=== PATIENT | male | born 1950 | race Caucasian/White ===

== ENCOUNTER → 2016-07-15 | Outpatient (CLI) | payer MEDICARE, OTHER ==
[~2016-07-15] MED LIST: ALBU8.5H2 IH; AMIT25TA9 PO; APIX5TAB PO; APIX5TAB2 PO; ASCO500T20 PO; ASCO500T75 PO; ASPI-983 PO; Amiodarone Hcl PO; BSP5T PO; BUSP15TA60 PO; CA C1TAB26 PO; CEFU500T5 PO; CHOL10007 PO; DIGO125T PO; DIGO250T15 PO; DILT240C PO; DILT240C9 PO; ENAL2.5T PO; ENALAPRIL MALEATE PO; FLUT16SP22 NS; FLUT1DIS27 IH; FLUT50DI IH; FRSM40T PO; FURO40TA4 PO; GUAI600T43 PO; HYDR-3812 PO; HYDR1TAB66 PO; IBAN150T8 PO; KCL20TCR PO; LOSA50TA6 PO; METO100T2 PO; MNTL10T PO; MONT10TA24 PO; MULT-406 PO; MULT1TAB12 PO; Metoprolol Tartrate PO; OMEP20CA12 PO; OMG1KC PO; PHEN50TA PO; PHN100C PO; POTA20TA8 PO; PRD5T PO; PRED5TAB PO; SODI30SP2 NS; SOTA80TA PO; Sotalol Hcl PO; TIOT18CA IH; TIOT18CA2 IH; TRIA1CAP4 PO
--- OUTSIDE RECORDS SUMMARY | 2016-07-15 11:26 | XMS REPORT | Continuity of Care Document ---
Author Author [facility] Organization [facility] Address Unknown Phone Unavailable Care Team Providers Care Liability Claims Adjuster Name Role Phone REBA BAILEY MD PCP Insurance Providers Payer Name Policy Number Subscriber Name Relationship [employer] [id number] Gallito Barros Jr 18 Self / Same As Patient Advance Directives Directive Response Recorded Date/Time Advance Directives No 01/18/15 8:00am Organ Donor No 01/18/15 8:00am Resuscitation Status Full Code 01/18/15 8:00am Chief Complaint and Reason for Visit Chief Complaint A-FIB WITH RVR Reason for Visit Atrial fibrillation with rapid ventricular response Problems Medical Problems Problem Onset Date Status Atrial fibrillation with rapid ventricular response Unknown Active Medications Medication Dose Route Sig Days/Qty Instructions Order Date Discontinued Date Status Phenytoin 400 Mg PO BEDTIME 12/22/11 12/23/11 Discontinued Omeprazole 20 Mg PO DAILY Take one capsule by mouth every day 12/22/11 Active Prednisone 10 Mg PO DAILY 12/22/11 Active Hydrocodone Bit/Acetaminophen 1 Tab PO EVERY 6 HOURS PRN 12/22/11 Active Triamterene/Hydrochlorothiazid 1 Each PO DAILY 12/22/11 12/24/11 Discontinued Buspirone HCl 15 Mg PO TWICE A DAY 12/22/11 01/18/15 Discontinued Amitriptyline HCl (Elavil) 25 Mg PO BEDTIME 12/22/11 Active Albuterol 2 Puff IH EVERY 4HRS PRN 2 PUFFS 12/22/11 Active Fluticasone Propionate 1 Puff IH DAILY 12/22/11 12/23/11 Discontinued Salmeterol Xinafoate/Fluticasone 1 Puff IH TWICE A DAY 12/22/11 Active Ca Cmb No.1/Vit D3/B-6/Fa/B12 1 Tab PO DAILY 12/22/11 Active Ascorbic Acid 500 Mg PO DAILY 12/22/11 Active Phenytoin Sodium 300 Mg PO BEDTIME 12/23/11 Active Fluticasone Propionate 2 Spr NS DAILY 2 sprays each nostril every day 12/23/11 Active Multivitamins W-Minerals 1 Tab PO DAILY 12/23/11 Active Montelukast Sodium 10 Mg PO DAILY 12/23/11 Active Tiotropium [place] 1 Inh IH DAILY 1 INHALATION 12/23/11 Active Cefuroxime Axetil (Ceftin) 1 Each PO TWICE A DAY 12/24/11 01/18/15 Discontinued Buspirone Hcl 15 Mg PO TWICE A DAY 180 Qty 01/18/15 Active Ibandronate Sodium 150 Mg PO DIRECTED 1 Qty 01/18/15 Active Losartan Potassium 50 Mg PO DAILY 90 Qty 01/18/15 01/25/15 Discontinued Apixaban 5 Mg PO TWICE A DAY 30 Days 01/25/15 Active [Amiodarone Hcl] 400 Mg PO TWICE A DAY 30 Days 01/25/15 Active Digoxin 0.125 Mg PO DAILY 30 Qty 01/25/15 Active [Enalapril Maleate] 2.5 Mg PO DAILY 30 Qty 01/25/15 Active [Metoprolol Tartrate] 50 Mg PO TWICE A DAY 30 Days 01/25/15 Active Potassium Chloride 20 Meq PO DAILY@0700 30 Days 01/25/15 Active Diltiazem HCl (Cardizem Cd) 1 Each PO DAILY 30 Qty 01/25/15 Active Furosemide 1 Each PO DAILY 30 Qty 01/25/15 Active Social History Social History Problem Response Recorded Date/Time Alcohol Use Denies Use 01/18/2015 8:00am Recreational Drug Use No 01/18/2015 8:00am Recent Foreign Travel No 01/18/2015 8:00am Recent Infectious Disease Exposure No 01/18/2015 8:00am Hospitalization with Isolation Denies 01/25/2015 2:46pm Sexually Transmitted Disease No 01/18/2015 8:00am HIV/AIDS No 01/18/2015 8:00am Smoking Status Never a Smoker 01/18/2015 8:00am Do you dip or chew tobacco? No 01/18/2015 8:00am Query Response Start Date Stop Date Smoking Status Never a Smoker Hospital Discharge Instructions No hospital discharge instructions. Plan of Care Discharge Date 01/25/15 1:53pm Disposition 30 STILL A PATIENT Instructions/Education Provided CARDIAC CATH DISCHARGE INSTRUC 2 Gram Sodium Diet (DC) Prescriptions See Medications Section Referrals (Unspecified) Reason(s) for Referral: Follow up with Dr. Bustamante on January 30 at 8:20. Follow up with Dr. Bailey on February 01 at 9:00. Call their respective offices with any questions regarding your appointments. Functional Status Query Response Date Recorded Patient Orientation Person Place Time Situation January 25, 2015 2:46pm Comprehension Ability Understands Concepts January 25, 2015 8:00am Allergies, Adverse Reactions, Alerts Allergen Type Severity Reaction Status Last Updated Penicillins ([id number]) Allergy Unknown Active 09/27/05 Immunizations Name Given Type Tetanus Booster (TDap) More than 5yrs Historical Vital Signs Acute Vital Signs Vital Response Date/Time Temperature (Fahrenheit) 98.0 degrees F (97.6 - 99.5) Temperature (Calculated Celsius) 36.61575 degrees C (36.4 - 37.5) Temperature Source Temporal Pulse Rate (adult) 84 bpm (60 - 90) Respiratory Rate 18 bpm (12 - 24) O2 Sat by Pulse Oximetry 96 % (88 - 100) Blood Pressure 116/70 mm Hg Blood Pressure Mean 85 mm Hg Pain Pain Intensity 0 Pain Pain Intensity 0 Height (Feet) 5 feet Height (Inches) 4.00 inches Height (Calculated Centimeters) 162.596834 cm Weight (Pounds) 165 pounds Weight (Ounces) 12.8 oz Weight (Calculated Grams) 41415.616 gm Weight (Calculated Kilograms) 75.291421 kilograms Calculated BMI 31.58 Results Laboratory Results Test Name Result Units Flags Reference Collection Date/Time Result Date/ Time Comments White Blood Count 7.8 10^3/uL 4.3-11.0 01/25/2015 4:56am 01/25/2015 5: 31am Red Blood Count 3.99 10^6/uL L 4.35-5.85 01/25/2015 4:56am 01/25/2015 5: 31am Hemoglobin 12.9 G/DL L 13.3-17.7 01/25/2015 4:56am 01/25/2015 5:31am Hematocrit 39 % L 40-54 01/25/2015 4:56am 01/25/2015 5:31am Mean Corpuscular Volume 99 FL 80-99 01/25/2015 4:56am 01/25/2015 5: 31am Mean Corpuscular Hemoglobin 32 PG 25-34 01/25/2015 4:56am 01/25/2015 5: 31am Mean Corpuscular Hemoglobin Concent 33 G/DL 32-36 01/25/2015 4:56am 5:31am Red Cell Distribution Width 13.7 % 10.0-14.5 01/25/2015 4:562014 5:31am Platelet Count 348 10^3/uL 130-400 01/25/2015 4:56am 01/25/2015 5:31am Mean Platelet Volume 8.3 FL 7.4-10.4 01/25/2015 4:56am 01/25/2015 5: 31am Neutrophils (%) (Auto) 62 % 42-75 01/18/2015 6:0501/18/2015 6:27am Lymphocytes (%) (Auto) 25 % 12-44 01/18/2015 6:0501/18/2015 6:27am Monocytes (%) (Auto) 12 % 0-12 01/18/2015 6:0501/18/2015 6:27am Eosinophils (%) (Auto) 1 % 0-10 01/18/2015 6:0501/18/2015 6:27am Basophils (%) (Auto) 0 % 0-10 01/18/2015 6:0501/18/2015 6:27am Neutrophils # (Auto) 4.6 X 10^3 1.8-7.8 01/18/2015 6:0501/18/2015 6: 27am Lymphocytes # (Auto) 1.8 X 10^3 1.0-4.0 01/18/2015 6:0501/18/2015 6: 27am Monocytes # (Auto) 0.9 X 10^3 0.0-1.0 01/18/2015 6:05am 01/18/2015 6: 27am Eosinophils # (Auto) 0.1 10^3/uL 0.0-0.3 01/18/2015 6:05am 01/18/2015 6 :27am Basophils # (Auto) 0.0 10^3/uL 0.0-0.1 01/18/2015 6:05am 01/18/2015 6: 27am Prothrombin Time 14.6 SEC 12.2-14.7 01/18/2015 6:05am 01/18/2015 6: 37am INR Comment 1.2 0.8-1.4 01/18/2015 6:05am 01/18/2015 6:37am INTERPRETIVE DATA SUGGESTED THERAPEUTIC RANGE FOR INR'S: VENOUS THROMBOSIS, PULMONARY EMBOLISM, OR PREVENTION OF SYSTEMIC EMBOLISM (EG. IN ATRIAL FIBRILLATION): 2.0 - 3.0 MECHANICAL PROSTHETIC HEART VALVES: 2.5 - 3.5* *NOTE: INR'S UP TO 4.5 MAY BE NECESSARY IN SELECTED GROUPS OF HIGH RISK PATIENTS. [employer] CONSENSUS CONFERENCE ON ANTITHROMBOTIC THERAPY (2000). Activated Partial Thromboplast Time 32 SEC 24-35 01/18/2015 6:05am 6:37am D-Dimer 0.72 UG/ML H 0.00-0.49 01/19/2015 6:05am 01/19/2015 7:18am Sodium Level 135 MMOL/L 135-145 01/25/2015 4:56am 01/25/2015 5:48am Potassium Level 4.2 MMOL/L 3.6-5.0 01/25/2015 4:56am 01/25/2015 5:48am Chloride Level 101 MMOL/L 98-107 01/25/2015 4:56am 01/25/2015 5:48am Carbon Dioxide Level 24 MMOL/L 21-32 01/25/2015 4:56am 01/25/2015 5: 48am Anion Gap 10 MMOL/L 5-14 01/25/2015 4:56am 01/25/2015 5:48am Blood Urea Nitrogen 11 MG/DL 7-18 01/25/2015 4:56am 01/25/2015 5:48am Creatinine 0.84 MG/DL 0.60-1.30 01/25/2015 4:5601/25/2015 5:48am BUN/Creatinine Ratio 13 01/25/2015 4:5601/25/2015 5:48am Estimat Glomerular Filtration Rate > 60 01/25/2015 4:562014 5:48am GFR INTERPRETIVE DATA UNITS FOR ESTIMATED GFR (eGFR): mL/min/1.73 M2 REFERENCE RANGE FOR ESTIMATED GFR (eGFR) eGFR NORMAL eGFR >60 MODERATELY DECREASED eGFR 30-59 SEVERLY DECREASED eGFR 15-29 KIDNEY FAILURE <15 (OR DIALYSIS) Glucose Level 76 MG/DL 70-105 01/25/2015 4:5601/25/2015 5:48am Calcium Level 9.3 MG/DL 8.5-10.1 01/25/2015 4:5601/25/2015 5:48am Magnesium Level 2.0 MG/DL 1.8-2.4 01/18/2015 6:01/18/2015 6:53am Total Bilirubin 0.5 MG/DL 0.1-1.0 01/23/2015 5:01/23/2015 6:23am Alkaline Phosphatase 87 U/L 40-136 01/23/2015 5:01/23/2015 6:23am Aspartate Amino Transf (AST/SGOT) 75 U/L H 5-34 01/23/2015 5:2014 6:23am Alanine Aminotransferase (ALT/SGPT) 104 U/L H 0-55 01/23/2015 5: 6:23am Troponin I < 0.30 NG/ML <0.30 01/19/2015 5:01/19/2015 6:13am Troponin I < 0.30 NG/ML <0.30 01/18/2015 6:01/18/2015 6:58am Myoglobin 151.9 NG/ML H 10.0-92.0 01/18/2015 6:01/18/2015 6:58am B-Type Natriuretic Peptide 300.7 PG/ML H <100.0 01/19/2015 5:2014 6:13am Total Protein 6.3 G/DL L 6.4-8.2 01/23/2015 5:01/23/2015 6:23am Albumin 3.4 G/DL 3.2-4.5 01/23/2015 5:26am 01/23/2015 6:23am Triglycerides Level 74 MG/DL <150 01/19/2015 5:10am 01/19/2015 6:14am Cholesterol Level 143 MG/DL < 200 01/19/2015 5:10am 01/19/2015 6:14am HDL Cholesterol 38 MG/DL L 40-60 01/19/2015 5:10am 01/19/2015 6:14am LDL Cholesterol Direct 89 MG/DL 1-129 01/19/2015 5:10am 01/19/2015 6: 14am VLDL Cholesterol 15 MG/DL 5-40 01/19/2015 5:10am 01/19/2015 6:14am Digoxin Level 0.70 NG/ML L 0.80-2.00 01/23/2015 5:26am 01/23/2015 6:23am Phenytoin (Dilantin) Level 5.5 UG/ML L 10.0-20.0 01/18/2015 6:05am 2014 9:04am Procedures Procedure Status Date Provider(s) Tracing only of electrocardiogram completed 01/18/15 YOEL LOZANO MD Color Doppler echocardiography completed 01/18/15 REBA BAILEY MD Tracing only of electrocardiogram completed 01/18/15 MELISSA BUSTAMANTE MD Transesophageal echocardiography with contrast completed 01/20/15 MELISSA BUSTAMANTE MD Tracing only of electrocardiogram completed 01/21/15 MELISSA BUSTAMANTE MD Tracing only of electrocardiogram completed 01/22/15 MELISSA BUSTAMANTE MD Tracing only of electrocardiogram completed 01/24/15 MELISSA BUSTAMANTE MD Encounters Encounter Location Date/Time Discharged Inpatient Via [facility] 01/18/15 7:29am Recent Diagnosis Atrial fibrillation with rapid ventricular response
--- NOTE | 2016-07-16 09:31 | ECHOCARDIOGRAPHY REPORT ---
PROCEDURE PHYSICIAN: MELISSA ADAMS DATE OF PROCEDURE: 07/15/2016 TWO DIMENSIONAL ECHOCARDIOGRAM REPORT PRIMARY PHYSICIAN: OTHER PHYSICIAN: REFERRING PHYSICIAN: ORDERING PHYSICIAN: INDICATION FOR THE PROCEDURE: MEASUREMENTS DERIVED VALUES LV DIAMETER (LAX) NORMALS NORMALS Diastolic 4.6 (3.6-5.2) Eject. Fract. 60% (60%+/-6%) Systolic (2.3-3.9) Diastolic Vol. % Shortening (0.22-0.42) Systolic Vol. Aortic Root IVS THICKNESS Diastolic 1.3 (0.6-1.1) LVPW THICKNESS Diastolic 1. (0.6-1.1) LA DIAMETER Systolic 4.9 (2.1-3.7) FINDINGS: 1. Technically suboptimal study. 2. The left ventricle is normal in size with mild hypertrophy noted at the base of the septum giving the septum a sigmoid shape. Systolic function appeared to be normal. Estimated ejection fraction 60%. 3. Left atrium is mildly dilated. No clot or thrombus were seen within the left atrium. 4. The right atrium and right ventricle are normal in size. No clot or thrombus were seen within the right side. 5. Mitral valve is calcified with mild mitral regurgitation noted by color Doppler flow. No mitral valve prolapse. No mitral valve stenosis. 6. Aortic valve leaflets were not well visualized. There is no significant aortic valve stenosis was noted, aortic regurgitation noted by color Doppler flow. 7. Tricuspid valve is normal in morphology with mild tricuspid regurgitation noted by color Doppler flow. Doppler across tricuspid valve estimated pulmonary artery pressure of 37+ right atrial pressure. 8. Pulmonic valve is functioning normally. 9. No pericardial effusion. CONCLUSION: 1. Normal left ventricular size with mild hypertrophy noted at the base of the septum giving the septum a sigmoid shape. Systolic function appeared to be normal. Estimated ejection fraction 60%. 2. Mildly dilated left atrium. 3. Mild mitral regurgitation. Mild tricuspid regurgitation. 4. Aortic valve was not well visualized. Mild aortic regurgitation noted by color Doppler flow. No aortic valve stenosis. 5. Pulmonary hypertension with estimated pulmonary artery pressure of 45 mmHg. Job ID: [id number] Dictated Date: 07/15/2016 16:41:54 Hatch Supervisor Date: 07/16/2016 09:26:18 / shreyas
== END ==
LOC: CARD 11:23
PROVIDERS: ATTEND Physician Assistant
DX: I48.0 Paroxysmal atrial fibrillation (principal); I25.10 Atherosclerotic heart disease of native coronary artery without angina pectoris; I50.22 Chronic systolic (congestive) heart failure; E78.2 Mixed hyperlipidemia
CPT/HCPCS: 93306

== ENCOUNTER 2016-07-29 07:13 | Inpatient (IN) | payer MEDICARE, OTHER ==
[~2016-07-29] VITALS: Ht 160 cm; Wt 75.3 kg
[2016-07-29] VITALS (16 sets, daily range): BP systolic 93–112; BP diastolic 55–84
[~2016-07-29 07:13] MED LIST changes: -APIX5TAB PO; -ASCO500T75 PO; -ASPI-983 PO; -CHOL10007 PO; -DIGO125T PO; -DILT240C9 PO; -ENAL2.5T PO; -FURO40TA4 PO; -GUAI600T43 PO; -HYDR-3812 PO; -METO100T2 PO; -MONT10TA24 PO; -MULT-406 PO; -OMG1KC PO; -POTA20TA8 PO; -PRED5TAB PO; -SODI30SP2 NS; -SOTA80TA PO; -Sotalol Hcl PO; -TIOT18CA2 IH
--- OUTSIDE RECORDS SUMMARY | 2016-07-29 07:17 | XMS REPORT | Continuity of Care Document ---
Author Author [facility] Organization [facility] Address Unknown Phone Unavailable Care Team Providers Care Condenser Setter Name Role Phone REBA BAILEY MD PCP Insurance Providers Payer Name Policy Number Subscriber Name Relationship [employer] [id number] Gallito Barros Jr 18 Self / Same [...] 10 Mg PO DAILY 12/23/11 Active Tiotropium [place] 1 Inh IH DAILY 1 INHALATION 12/23/11 [...] Type Severity Reaction Status Last Updated Penicillins ([id number]) Allergy Unknown Active 09/27/05 Immunizations Name Given Type Tetanus Booster (TDap) More than 5yrs Historical Vital Signs Acute Vital Signs Vital Response Date/Time Temperature (Fahrenheit) 98.0 degrees F (97.6 - 99.5) Temperature (Calculated Celsius) 36.69573 degrees C (36.4 - 37.5) Temperature Source Temporal Pulse Rate (adult) 84 bpm (60 - 90) Respiratory Rate 18 bpm (12 - 24) O2 Sat by Pulse Oximetry 96 % (88 - 100) Blood Pressure 116/70 mm Hg Blood Pressure Mean 85 mm Hg Pain Pain Intensity 0 Pain Pain Intensity 0 Height (Feet) 5 feet Height (Inches) 4.00 inches Height (Calculated Centimeters) 162.492230 cm Weight (Pounds) 165 pounds Weight (Ounces) 12.8 oz Weight (Calculated Grams) 49547.616 gm Weight (Calculated Kilograms) 75.368724 kilograms Calculated BMI 31.58 Results Laboratory Results [...] SELECTED GROUPS OF HIGH RISK PATIENTS. [employer] CONSENSUS CONFERENCE ON [...] Encounters Encounter Location Date/Time Discharged Inpatient [facility] 01/18/15 7:29am Recent Diagnosis Atrial fibrillation with rapid ventricular response
[2016-07-29] MEDS ORDERED: METO100T2 PO (08:40)
[2016-07-29] MEDS ORDERED: ASPI-983 PO (08:40)
[2016-07-29] MEDS ORDERED: DILT240C9 PO (08:40)
[2016-07-29] MEDS ORDERED: CHOL10007 PO (08:40)
[2016-07-29] MEDS ORDERED: OMG1KC PO (08:40)
[2016-07-29] MEDS ORDERED: POTA20TA8 PO (08:40)
[2016-07-29] MEDS ORDERED: DIGO125T PO (08:40)
[2016-07-29] MEDS ORDERED: MULT-406 PO (08:40)
[2016-07-29] MEDS ORDERED: FURO40TA4 PO (08:40)
[2016-07-29] MEDS ORDERED: IBAN150T8 PO (08:40)
[2016-07-29] MEDS ORDERED: APIX5TAB PO (08:40)
[2016-07-29] MEDS ORDERED: SODI30SP2 NS (08:40)
[2016-07-29] MEDS ORDERED: ENAL2.5T PO (08:40)
[2016-07-29] MEDS ORDERED: GUAI600T43 PO (08:40)
[2016-07-29] MEDS ORDERED: HYDR-3812 PO (08:48)
[2016-07-29] MEDS ORDERED: SOTALOL 80 MG (BETAPACE) TAB PO SCH (09:00)
[2016-07-29] MEDS ORDERED: SALINE NASAL SPRAY (OCEAN) 45 ML BTL NS PRN (11:15)
[2016-07-29] MEDS ORDERED: DIGOXIN 0.125 MG (LANOXIN) TAB PO SCH (11:15)
[2016-07-29] MEDS ORDERED: IBANDRONATE SODIUM 150 MG PO SCH (11:15)
[2016-07-29] MEDS ORDERED: DILTIAZEM 240 MG (CARDIZEM CD) CAP PO SCH (11:20)
[2016-07-29] MEDS ORDERED: meTOprolol TARTRATE 50 MG (LOPRESSOR) TAB PO SCH (11:21)
[2016-07-29] MEDS ORDERED: predniSONE 5 MG TAB PO SCH (11:23)
[2016-07-29] MEDS ORDERED: UMECLIDINIUM BROMIDE (INCRUSE ELLIPTA) 7'S IH SCH (11:29)
[2016-07-29] MEDS ORDERED: RT-ALBUTEROL SULF 2.5 MG/3 ML PRE-MIX VIAL INH PRN (11:30)
[2016-07-29] MEDS ORDERED: HYDROcodone/APAP 5 MG/325 MG (LORTAB) TAB PO PRN (11:45)
--- NOTE | 2016-07-29 11:48 | History & Physicial-Cardiolgy ---
HPI-Cardiology Cardiology Consultation: Date of Consultation 07/29/16 Date of Admission Attending Physician Jamie Rich MD Admitting Physician Yeison Bailey MD Consulting Physician Jamie RICH MD HPI: Chief Complaint: Atrial fibrillation This is a 65-year-old gentleman who has been referred by Dr. Bustamante for evaluation of atrial fibrillation. The patient has possible history of endocarditis as a child with history of cardiac surgery for valve repair. He also has mild to moderate coronary artery disease on an angiogram performed by Dr. Bustamante. Echocardiogram also revealed mild to moderate LV systolic dysfunction with an EF of 35 percent. Echocardiogram also showed moderate mitral stenosis, lhue-tx-erddxarz mitral regurgitation, plns-vf-rqwjcsed aortic insufficiency. The mitral leaflets are diseased with possible evidence of healed vegetation. Mild to moderate left atrial enlargement was also noted. He has had at least 3 cardioversions in the past, the last one was in June 2015. One of the cardioversions was done with amiodarone, however, it was discontinued because of elevated LFTs. Has not been on any other antiarrhythmics. He is currently on therapy for cardiomyopathy and rate controlled with beta sukumar, Cardizem and digoxin. He has been regularly taking Eliquis for a while now and at least regularly for the last one month. He denies any significant cardiac symptoms including chest pain, palpitation, shortness of breath or dizziness. Procedure history: Echocardiogram ([id number]) on 07/15/2016 at 65 Years. Comments: 07/17/2016 1:19 PM - Hilary Maradiaga Normal LV size with mild LVH, normal systolic function, EF 60%, LA dilatation mild MR and TR, AV not well visualized, mild AR, no AV stenosis, HTP=45mmHg Carotid US- Mild 1-39% stenosis, nonobstructive disease bilaterally on 2015 at 65 Years. 2D Echo - prominent LV size w/ preserved systolic function, dilated LA, echogenic density noted on ant leaflet of MV (could be myxomatous degen or old healed vagetation), valve functioning normally, AV sclerosis, no , mild to mod AR, mild TR, PA 40mmHg on 06/14/2015 at 64 Years. AMBROSIO with cardioversion - cardioverted x 2 with no response on 03/23/2015 at 64 Years. Cardioversion in the month of 02/2015 at 64 Years. LHC - nonischemic cardiomyopathy, prob tachycardia-induced with EF 40%; mild to mod CAD, nonobstructive disease including 40-50% mid LAD stenosis, mild in RCA on 01/24/2015 at 64 Years. AMBROSIO with Cardioversion - converted to SR but failed to remain in SR on 2014 at 64 Years. 2D Echo - fair tech quality; LV and LA are mildly dilated with mod RV and R upper chamber dilatation; global mod LV hypokinesis with EF 35%; in A fib with vent rate of around 120 beats per min. during procedure; anterior mitral leaflet is sclerotic on 01/18/2015 at 64 Years. Comments: 01/30/2015 5:59 PM - Steph Smith with reduced leaflet mobility, posterior leaflet is not significantly thickened ; no evidence for intracardiac shunting is noted; no evidence of pericardial effusion; no intracardiac mass or thrombus formation is visualized. Review of Systems-Cardiology Review of Systems Constitutional: No As described under HPI, No no symptoms reported, No chills, No fever, No lightheadedness, No malaise, No tiredness, No weight loss, No weight gain, No other Eyes: No As described under HPI, No no symptoms reported, No blindness, No blurred vision, No contact lenses, No drainage, No decreased acuity, No foreign body sensation, No glasses, No inflammation, No pain, No photophobia, No previous injury, No shadows, No tunnel vision, No other, No vision change Ears/Nose/Throat: No As described under HPI, No no symptoms reported, No chronic hearing loss, No epistaxis, No ear discharge, No ear pain, No loose teeth, No mouth pain, No mouth swelling, No nasal drainage, No nose pain, No recent hearing loss, No throat pain, No throat swelling, No ulcerations, No other Respiratory: No no symptoms reported, No As described under HPI, No cough, No orthopnea, No shortness of breath, No SOB with excertion, No SOB at rest, No stridor, No wheezing, No other Cardiovascular: No no symptoms reported, No As described under HPI, No chest pain, No edema, No irregular heart rate, No lightheadedness, No palpitations, No syncope, No other Gastrointestinal: No no symptoms reported, No As described under HPI, No abdomen distended, No abdominal pain, No blood streaked bowels, No constipation , No diarrhea, No difficulty swallowing, No nausea, No poor appetite, No poor fluid intake, No rectal bleeding, No vomiting, No other, No nausea/vomiting/ diarrhea, No stool coloration changes Genitourinary: No no symptoms reported, No As described under HPI, No burning, No dysuria, No discharge, No frequency, No flank pain, No hematuria, No incontinence, No pain, No urgency, No other, No urine frequency changes, No urine coloration changes Musculoskeletal: No no symptoms reported, No As describe under HPI, No back pain, No gout, No joint pain, No joint swelling, No muscle pain, No muscle stiffness, No neck pain, No other Skin: No no symptoms reported, No As described under HPI, No change in color, No change in hair/nails, No dryness, No lesions, No lumps, No rash, No other, No skin related problems, No ulcerations, No rash on exposed areas, No ulcerations on exposed areas Psychiatric/Neurological: No As described under HPI, No anxiety, No depression , No emotional problems, No focal weakness, No headache, No no symptoms reported , No numbness, No other, No pre-existing deficit, No seizure, No syncope, No tingling, No tremors, No weakness Hematologic: No no symptoms reported, No As described under HPI, No anemia, No blood clots, No easy bleeding, No easy bruising, No swollen glands, No other, No bleeding abnormalities RRR-Dauxvu-Ojzads Hx Patient Social History Alcohol Use: Denies Use Recreational Drug Use: No Smoking Status: Former Smoker Type Used: Cigarettes Recent Foreign Travel: No Recent Infectious Disease Expo: No Hospitalization with Isolation: Denies Physical Abuse Screen: No Sexual Abuse: No Immunizations Up To Date Tetanus Booster (TDap): More than 5yrs Date of Pneumonia Vaccine: Apr 28, 2016 Date of Influenza Vaccine: Apr 28, 2016 Past Medical History PMH As described under Assessment. Family Medical History Family History: Alcoholism G8 BROTHER, Onset:Unknown Arthritis 19 MOTHER, Onset:Unknown Cardiovascular disease G8 SISTER, Onset:60 years & older 19 FATHER, Onset:60 years & older Completed stroke G8 BROTHER, Onset:50's - 60 FH: breast cancer 19 MOTHER, Onset:60 years & older Hypercholesterolemia 19 FATHER, Onset:Unknown Myocardial infarction 19 FATHER, Onset:60 years & older Seizure disorder G8 BROTHER, Onset:50's - 60 Allergies and Home Medications Allergies Coded Allergies: Penicillins (Unverified Allergy, Unknown, 09/27/05) Home Medications Albuterol 8.5 Gm Hfa.aer.ad 2 PUFF IH Q4H PRN PRN SHORTNESS OF BREATH (Reported ) Amitriptyline Hcl 25 Mg Tablet 25 MG PO HS (Reported) Apixaban 5 Mg Tablet 5 MG PO BID (Reported) Ascorbic Acid 500 Mg Tablet 500 MG PO DAILY (Reported) Aspirin 81 Mg Tablet.dr 81 MG PO DAILY (Reported) Buspirone Hcl 15 Mg Tablet 15 MG PO BID (Reported) Cholecalciferol (Vitamin D3) 1,000 Unit Capsule 2,000 UNIT PO DAILY (Reported) TAKES 2 (1,000 UNIT) CAPSULES Digoxin 125 Mcg Tablet 125 MCG PO MoWeFrSa (Reported) Diltiazem HCl 240 Mg Cap.er.deg 240 MG PO DAILY (Reported) Enalapril Maleate 2.5 Mg Tablet 2.5 MG PO DAILY (Reported) Fluticasone Propionate 16 Gm Naspr 2 SPRAYS NS HS (Reported) Fluticasone/Salmeterol 1 Disk Inhp 1 PUFF IH BID (Reported) Furosemide 40 Mg Tablet 40 MG PO DAILY (Reported) Guaifenesin 600 Mg Tab.er.12h 600 MG PO BID (Reported) Hydrocodone/Acetaminophen 1 Each Tablet 1 TAB PO Q6H PRN PRN PAIN (Reported) Ibandronate Sodium 150 Mg Tablet 150 MG PO MONTHLY ON THE (Reported) Metoprolol Tartrate 100 Mg Tablet 100 MG PO BID (Reported) Montelukast Sodium 10 Mg Tablet 10 MG PO HS (Reported) Multivitamin with Minerals 1 Each Tablet 1 TAB PO DAILY (Reported) [place] 3 Polyunsat Fatty Acids 1,000 Mg Cap 1,000 MG PO DAILY (Reported) Omeprazole 20 Mg Capsule.dr 20 MG PO DAILY (Reported) Phenytoin Sodium 100 Mg Cap 200 MG PO HS (Reported) Potassium Chloride 20 Meq Tab.er.prt 20 MEQ PO DAILY (Reported) Prednisone 5 Mg Tab 5 MG PO DAILY (Reported) Sodium Chloride 30 Ml [place] 1-2 SPRAYS NS TID PRN PRN DRY NOSE (Reported) Tiotropium [place] 1 Inh Aerp 1 CAP IH DAILY (Reported) Physical Exam-Cardiology Physical Exam Vital Signs/I&O Vital Sign - Last 12Hours 07/29/16 07:28 Pulse 87 Capillary Refill : Constitutional: No appears stated age, No AAO x 3, No apparent distress, No PERRL, No well-developed, No well-nourished, No other HEENT: No PERRL, No normal ENT inspection, No TMs normal, No pharynx normal, No scleral icterus (R), No scleral icterus (L), No pale conjunctivae (R), No pale conjunctivae (L), No photophobia, No TM abnormal (R), No TM abnormal (L), No pharyngeal erythema, No tonsillar exudate, No other, No discharge, No EOMI, No hearing is well preserved, No hard of hearing, No oral hygience is good, No ulceration, No xanthelasmas are seen Neck: No non-tender, No full range of motion, No supple, No normal inspection, No carotid bruit, No limited range of motion, No lymphadenopathy (R), No lymphadenopathy (L), No tender lateral, No tender midline, No thyromegaly, No other, No carotid pulses are 2 + bilaterally, No with good upstrokes Respiratory: No accessory muscle use, No respiratory distress, No chest tender , No chest expansion is symmetric, No chest is bilaterally symmetric, No lungs clear to percussion, No lungs clear to auscultation, No crackles, No rhonchi, No rales, No stridor, No wheezing, No pleural rub, No other Cardiovascular: No regular rate-rhythm, irregularly irregularNo extra beats, No parasternal heave is noted, No JVD, No edema, No bradycardia, No tachycardia , No point of maximal impulse, No cardiac thrills are palpable, No S1 and S2, No gallop/S3, No gallop/S4, No diastolic murmur, No systolic murmur, No friction rub, No click, No other Gastrointestinal: No tender, No soft, No round, No distended, No pulsatile mass , No organomegaly, No guarding, No rebound, No tenderness, No hernia, No mass, No audible bowel sounds, No abnormal bowel sounds, No abdominal bruits, No spleenomegaly, No other Rectal: deferred Extremities: No normal range of motion, No non-tender, No normal inspection, No pedal edema, No calf tenderness, No normal capillary refill, No pelvis stable , No calf tenderness, No inflammation, No pedal edema, No slow capillary refill , No swelling, No other, No abrasion, No clubbing, No cyanosis, No ecchymosis, No laceration, No no lower extremity edema bilateral, No significant edema, No tenderness, No wound Neurologic/Psychiatric: No deck hand II-XII nml as tested, No no motor/sensory deficits, No alert, No normal mood/affect, No oriented x 3, No abnormal cerebellar tests, No abnormal deck hand II-XII, No abnormal gait, No aphasia, No EOM palsy, No facial droop, No motor weakness, No sensory deficit, No depressed affect, No disoriented x 3, No other, No grossly intact, No power is 5/5 both on sides Skin: No normal color, No warm/dry, No cyanosis, No cool, No diaphoresis, No damp, No ecchymosis, No jaundice, No mottled, No pallor, No rash, No tattoos/ piercings, No ulcerations, No rash on exposed areas, No ulcerations on exposed areas, No other ECG Impression ECG Initial ECG Impression: Atrial Fibrillation A/P-Cardiology Assessment/Admission Diagnosis Atrial fibrillation, for initiation of antiarrhythmic therapy. Plan This is a 65-year-old gentleman who has been referred by Dr. Bustamante for evaluation of atrial fibrillation. The patient has possible history of endocarditis as a child with history of cardiac surgery for valve repair. He also has mild to moderate coronary artery disease on an angiogram performed by Dr. Bustamante. Echocardiogram also revealed mild to moderate LV systolic dysfunction with an EF of 35 percent. Echocardiogram also showed moderate mitral stenosis, rino-[id number]-tcgpuyki mitral regurgitation, [id number] aortic insufficiency. The mitral leaflets are diseased with possible evidence of healed vegetation. Mild to moderate left atrial enlargement was also noted. He has had at least 3 cardioversions in the past, the last one was in June 2015. One of the cardioversions was done with amiodarone, however, it was discontinued because of elevated LFTs. Has not been on any other antiarrhythmics. He is currently on therapy for cardiomyopathy and rate controlled with beta sukumar, Cardizem and digoxin. He has been regularly taking Eliquis for a while now and at least regularly for the last one month. He denies any significant cardiac symptoms including chest pain, palpitation, shortness of breath or dizziness. Due to efso-ow-tedtwayc coronary artery disease and cardiomyopathy the antiarrhythmic of choice is either amiodarone, sotalol or dofetilide. Amiodarone has been used in the past with elevated LFTs therefore we will avoid amiodarone. My first choice will be sotalol. He is therefore being admitted for sotalol and received first dose of 80 mg. This evening we will give him 120 mg of sotalol and check an EKG after 2 hours for QTC. After he has been on sotalol for one to 2 weeks, we will try another electrical direct cardioversion. If that fails, the next option will be dofetilide. His been in atrial fibrillation for at least a year and a half and has mild to moderate left atrial enlargement, the results of atrial fibrillation ablation will be modest. We will recommend atrial fibrillation ablation if the patient fails both sotalol and/or dofetilide. Clinical Quality Measures DVT/VTE Risk/Contraindication: Risk Factor Score Per Nursin RFS Level Per Nursing on Admit: 2=Moderate Jamie RICH MD Jul 29, 2016 11:48
[2016-07-29] MEDS: ADVAIR IH SCH (20:07)
[2016-07-29] MEDS: SOTALOL 80 MG (BETAPACE) TAB PO SCH (21:03)
[2016-07-29] MEDS: METOPROLOL TARTRATE 100 MG PO SCH (21:04)
[2016-07-29] MEDS: busPIRone 15 MG (BUSPAR) TABLET PO SCH (21:06)
[2016-07-29] MEDS: PHENYTOIN 100 MG (DILANTIN) CAP PO SCH (21:06)
[2016-07-29] MEDS: MONTELUKAST 10 MG (SINGULAIR) TAB PO SCH (21:07)
[2016-07-29] MEDS: APIXABAN 5 MG (ELIQUIS) TABLET PO SCH (21:08)
[2016-07-29] MEDS: FLUTICASONE NASAL SPRAY (FLONASE) 16 GM BTL NS SCH (21:08)
[2016-07-29] MEDS: AMITRIPTYLINE 25 MG (ELAVIL) TAB PO SCH (21:09)
[2016-07-29] MEDS: guaiFENesin (MUCINEX) 600 MG TAB PO SCH (21:11)
[2016-07-30] VITALS (24 sets, daily range): BP systolic 79–116; BP diastolic 50–82
[2016-07-30] MEDS: VITAMIN D3 1,000 UNITS (CHOLECALCIFEROL) TABLET PO SCH (06:33)
[2016-07-30] MEDS: predniSONE 5 MG TAB PO SCH (06:34)
[2016-07-30] MEDS: OMEPRAZOLE 20 MG (PriLOSEC) CAP NON-FORMULARY PO SCH (06:35)
[2016-07-30] MEDS: KCL 20 MEQ TAB (K-DUR) PO SCH (06:36)
[2016-07-30] MEDS: MULTIVIT W/MINERALS TAB (THERAGRAN M) PO SCH (06:37)
[2016-07-30] MEDS: OMEGA 3 (FISH OIL) 1000 MG CAP PO SCH (06:38)
[2016-07-30] MEDS: ASCORBIC ACID (VIT C) 500 MG TABLET PO SCH (06:39)
[2016-07-30] MEDS: ADVAIR IH SCH ×2 (06:39→20:21)
[2016-07-30] MEDS: TIOTROPIUM BROMIDE (SPIRIVA) 5'S INHALER IH SCH (06:40)
[2016-07-30] MEDS: SOTALOL 80 MG (BETAPACE) TAB PO SCH ×2 (08:19→21:00)
[2016-07-30] MEDS: METOPROLOL TARTRATE 100 MG PO SCH ×2 (08:19→20:57)
[2016-07-30] MEDS: busPIRone 15 MG (BUSPAR) TABLET PO SCH ×2 (08:19→20:58)
[2016-07-30] MEDS: ENALAPRIL 2.5 MG (VASOTEC) TAB PO SCH (08:20)
[2016-07-30] MEDS: DILTIAZEM 240 MG (CARDIZEM CD) CAP PO SCH (08:20)
[2016-07-30] MEDS: ASPIRIN E.C. 81 MG (ECOTRIN) TAB PO SCH (08:20)
[2016-07-30] MEDS: APIXABAN 5 MG (ELIQUIS) TABLET PO SCH ×2 (08:20→20:59)
[2016-07-30] MEDS: FUROSEMIDE 40 MG (LASIX) TAB PO SCH (08:21)
[2016-07-30] MEDS: guaiFENesin (MUCINEX) 600 MG TAB PO SCH ×2 (08:33→21:01)
--- NOTE | 2016-07-30 08:45 | Diagnostic Imaging Report ---
Portable erect AP chest at 450 hours. INDICATION: Arrhythmia. FINDINGS: The heart size is within normal limits and stable when compared to 01/23/15. The previous exam reveal that there was elevation of the right hemidiaphragm. On this study, the right hemidiaphragm is even more elevated as there is partial distention of the hepatic flexure of colon by gas. There is mild compressive atelectasis in the right midlung due to the elevated right hemidiaphragm. The lungs are otherwise generally clear. There is no sign of failure or pleural effusion. Mediastinum is not widened. The osseous structures are intact. IMPRESSION: There is greater elevation of right hemidiaphragm than noted on the prior exam and there is now compressive atelectasis in the right midlung. There is no acute cardiopulmonary abnormality noted otherwise. Dictated by: Dictated on workstation # [id number]
[2016-07-30] MEDS: FLUTICASONE NASAL SPRAY (FLONASE) 16 GM BTL NS SCH (20:56)
[2016-07-30] MEDS: MONTELUKAST 10 MG (SINGULAIR) TAB PO SCH (20:59)
[2016-07-30] MEDS: AMITRIPTYLINE 25 MG (ELAVIL) TAB PO SCH (21:00)
[2016-07-30] MEDS: PHENYTOIN 100 MG (DILANTIN) CAP PO SCH (21:00)
[2016-07-31] VITALS (8 sets, daily range): BP systolic 79–98; BP diastolic 53–77
[2016-07-31 04:35] LABS: BASOPHILS # (AUTO) 0.1 10^3/uL (0.0-0.1); BASOPHILS % (AUTO) 1 % (0-10); EOSINOPHILS # (AUTO) 0.2 10^3/uL (0.0-0.3); EOSINOPHILS % (AUTO) 3 % (0-10); LYMPHOCYTES % (AUTO) 23 % (12-44); MEAN CORPUSCULAR HEMOGLOBIN 32 PG (25-34); MEAN CORPUSCULAR HGB CONC 34 G/DL (32-36); MEAN CORPUSCULAR VOLUME 95 FL (80-99); MONOCYTES # (AUTO) 1.2 X 10^3 (0.0-1.0); MONOCYTES % (AUTO) 14 % (0-12); NEUTROPHILS # (AUTO) 5.1 X 10^3 (1.8-7.8); NEUTROPHILS % (AUTO) 59 % (42-75); PLATELET COUNT 472 10^3/uL (130-400); RED BLOOD COUNT 3.68 10^6/uL (4.35-5.85); RED CELL DISTRIBUTION WIDTH 12.3 % (10.0-14.5); WHITE BLOOD COUNT 8.6 10^3/uL (4.3-11.0)
[2016-07-31 04:50] LABS: CALCIUM 8.9 MG/DL (8.5-10.1); CREATININE SERUM 1.34 MG/DL (0.60-1.30); MAGNESIUM 2.1 MG/DL (1.8-2.4); PHOSPHORUS 3.1 MG/DL (2.3-4.7); POTASSIUM 4.1 MMOL/L (3.6-5.0)
[2016-07-31] MEDS: OMEGA 3 (FISH OIL) 1000 MG CAP PO SCH (06:51)
[2016-07-31] MEDS: predniSONE 5 MG TAB PO SCH (06:51)
[2016-07-31] MEDS: MULTIVIT W/MINERALS TAB (THERAGRAN M) PO SCH (06:51)
[2016-07-31] MEDS: VITAMIN D3 1,000 UNITS (CHOLECALCIFEROL) TABLET PO SCH (06:52)
[2016-07-31] MEDS: OMEPRAZOLE 20 MG (PriLOSEC) CAP NON-FORMULARY PO SCH (06:52)
[2016-07-31] MEDS: ASCORBIC ACID (VIT C) 500 MG TABLET PO SCH (06:54)
[2016-07-31] MEDS: KCL 20 MEQ TAB (K-DUR) PO SCH (06:54)
[2016-07-31] MEDS: TIOTROPIUM BROMIDE (SPIRIVA) 5'S INHALER IH SCH (08:16)
[2016-07-31] MEDS: ADVAIR IH SCH (08:17)
--- NOTE | 2016-07-31 08:19 | Diagnostic Imaging Report ---
Portable erect AP chest at 408 hours. INDICATION: Respiratory distress. FINDINGS: As noted on the prior exam of 07/30/16, there is elevation of the right hemidiaphragm. The compressive atelectasis in the right perihilar region seen previously is somewhat less prominent on this study. The right upper lung and left lung remain clear. The heart is stable. The mediastinum is not widened. The osseous structures are intact. IMPRESSION: The appearance of the chest has improved somewhat as there does seem to be slightly less compressive atelectasis in the right infrahilar region. The overall appearance of the chest is otherwise stable. No new abnormality has developed. Dictated by: Dictated on workstation # [id number]
[2016-07-31] MEDS: guaiFENesin (MUCINEX) 600 MG TAB PO SCH (08:22)
[2016-07-31] MEDS: SOTALOL 80 MG (BETAPACE) TAB PO SCH (08:22)
[2016-07-31] MEDS: DILTIAZEM 240 MG (CARDIZEM CD) CAP PO SCH (08:22)
[2016-07-31] MEDS: FUROSEMIDE 40 MG (LASIX) TAB PO SCH (08:23)
[2016-07-31] MEDS: ENALAPRIL 2.5 MG (VASOTEC) TAB PO SCH (08:23)
[2016-07-31] MEDS: APIXABAN 5 MG (ELIQUIS) TABLET PO SCH (08:23)
[2016-07-31] MEDS: ASPIRIN E.C. 81 MG (ECOTRIN) TAB PO SCH (08:23)
[2016-07-31] MEDS: busPIRone 15 MG (BUSPAR) TABLET PO SCH (08:24)
[2016-07-31] MEDS: METOPROLOL TARTRATE 100 MG PO SCH (08:24)
[2016-07-31] MEDS ORDERED: DIGOXIN 0.125 MG (LANOXIN) TAB PO SCH (09:00)
--- NOTE | 2016-07-31 10:24 | Cardiology Progress Note ---
Cardiology SOAP Progress Note Subjective: No complaints Objective: I&O/Vital Signs Vital Sign - Last 12Hours 07/30/16 07/31/16 07/31/16 07/31/16 23:00 00:00 00:00 01:00 Temp 98.3 Pulse 65 80 70 Resp 17 21 B/P 95/73 96/77 Pulse Ox 93 96 96 O2 Delivery Room Air Room Air Room Air 07/31/16 07/31/16 07/31/16 07/31/16 01:00 02:00 03:00 04:00 Temp 98.1 Pulse 70 73 81 75 Resp 24 27 20 9 B/P 88/60 79/53 88/66 98/68 Pulse Ox 93 95 93 96 O2 Delivery Room Air Room Air Room Air Room Air 07/31/16 07/31/16 07/31/16 07/31/16 04:15 05:00 06:00 07:00 Pulse 76 74 90 Resp 23 22 B/P 90/53 81/63 Pulse Ox 94 94 91 O2 Delivery Room Air Room Air Room Air 07/31/16 07/31/16 07/31/16 07/31/16 08:01 08:01 08:17 08:23 Temp 97.2 Pulse Ox 95 94 97 O2 Delivery Room Air Intake and Output 07/31/16 00:00 Intake Total 850 ml Balance 850 ml Weight (Pounds): 166 Weight (Ounces): 1.0 Weight (Calculated Kilograms): 75.135694 Constitutional: No appears stated age, No AAO x 3, No apparent distress, No PERRL, No well-developed, No well-nourished, No other Respiratory: No accessory muscle use, No respiratory distress, No chest tender , No chest expansion is symmetric, No chest is bilaterally symmetric, No lungs clear to percussion, No lungs clear to auscultation, No crackles, No rhonchi, No rales, No stridor, No wheezing, No pleural rub, No other Cardiovascular: No regular rate-rhythm, irregularly irregularNo extra beats, No parasternal heave is noted, No JVD, No edema, No bradycardia, No tachycardia , No point of maximal impulse, No cardiac thrills are palpable, No S1 and S2, No gallop/S3, No gallop/S4, No diastolic murmur, No systolic murmur, No friction rub, No click, No other Gastrointestional: No tender, No soft, No round, No distended, No pulsatile mass, No organomegaly, No guarding, No rebound, No tenderness, No hernia, No mass, No audible bowel sounds, No abnormal bowel sounds, No abdominal bruits, No spleenomegaly, No other Extremities: No normal range of motion, No non-tender, No normal inspection, No pedal edema, No calf tenderness, No normal capillary refill, No pelvis stable , No calf tenderness, No inflammation, No pedal edema, No slow capillary refill , No swelling, No other, No abrasion, No clubbing, No cyanosis, No ecchymosis, No laceration, No no lower extremity edema bilateral, No significant edema, No tenderness, No wound Neurologic/Psychiatric: No tractor driver teamster II-XII nml as tested, No no motor/sensory deficits, No alert, No normal mood/affect, No oriented x 3, No abnormal cerebellar tests, No abnormal tractor driver teamster II-XII, No abnormal gait, No aphasia, No EOM palsy, No facial droop, No motor weakness, No sensory deficit, No depressed affect, No disoriented x 3, No other, No grossly intact, No power is 5/5 both on sides Skin: No normal color, No warm/dry, No cyanosis, No cool, No diaphoresis, No damp, No ecchymosis, No jaundice, No mottled, No pallor, No rash, No tattoos/ piercings, No ulcerations, No rash on exposed areas, No ulcerations on exposed areas, No other Results/Procedures: Labs Laboratory Tests 07/31/16 04:08: Anion Gap 10, BUN/Creatinine Ratio 16, Basophils # (Auto) 0.1, Basophils (%) ( Auto) 1, Blood Urea Nitrogen 22H, Calcium Level 8.9, Carbon Dioxide Level 25, Chloride Level 97L, Creatinine 1.34H, Eosinophils # (Auto) 0.2, Eosinophils (%) (Auto) 3, Estimat Glomerular Filtration Rate 53, Glucose Level 84, Hematocrit 35L, Hemoglobin 11.9L, Lymphocytes # (Auto) 2.0, Lymphocytes (%) (Auto) 23, Magnesium Level 2.1, Mean Corpuscular Hemoglobin 32, Mean Corpuscular Hemoglobin Concent 34, Mean Corpuscular Volume 95, Mean Platelet Volume 8.0, Monocytes # (Auto) 1.2H, Monocytes (%) (Auto) 14H, Neutrophils # (Auto) 5.1, Neutrophils (%) (Auto) 59, Phosphorus Level 3.1, Platelet Count 472H, Potassium Level 4.1, Red Blood Count 3.68L, Red Cell Distribution Width 12.3, Sodium Level 132L, White Blood Count 8.6 A/P: Assessment/Dx: Atrial fibrillation, for initiation of antiarrhythmic therapy. Plan: Atrial fibrillation, admitted for initiation of sotalol. Patient had significant QTC prolongation with sotalol 120 mg. Therefore, dose reduced to 80 mg twice a day. QTC 466 last evening. We are awaiting EKG after the morning dose. If below 500 QTC, patient will be discharged to follow-up as an outpatient on sotalol 80 mg twice a day. He will also continue oral anti- coagulation. Jamie PALENCIA MD Jul 31, 2016 10:24 am
[2016-07-31] MEDS ORDERED: Sotalol Hcl PO (11:41)
--- NOTE | 2016-07-31 11:43 | Discharge Inst-Simple/Standard ---
Discharge Inst-Standard Discharge Medications New, Converted or Re-Newed RX: Transmitted to Pharmacy Patient Instructions/Follow Up Plan of Care/Instructions/FU: Dr Rich in one to two weeks Activity as Tolerated: Yes Discharge Diet: Cardiac Diet Return to The Hospital For: palpitations, syncope, near-syncope Jamie RICH MD Jul 31, 2016 11:43 am
--- NOTE | 2016-07-31 11:46 | Cardiology Discharge Summary ---
Diagnosis/Chief Complaint Date of Admission Jul 29, 2016 at 7:13 am Date of Discharge 07/31/2016 Admission Diagnosis afib with rvr Final/Discharge Diagnosis afib. started on sotalol therapy Chief Complaint/HPI Chief Complaint/HPI This is a 65-year-old gentleman who has been referred by Dr. Bustamante for evaluation of atrial fibrillation. The patient has possible history of endocarditis as a child with history of cardiac surgery for valve repair. He also has mild to moderate coronary artery disease on an angiogram performed by Dr. Bustamante. Echocardiogram also revealed mild to moderate LV systolic dysfunction with an EF of 35 percent. Echocardiogram also showed moderate mitral stenosis, [id number] mitral regurgitation, [id number] aortic insufficiency. The mitral leaflets are diseased with possible evidence of healed vegetation. Mild to moderate left atrial enlargement was also noted. He has had at least 3 cardioversions in the past, the last one was in June 2015. One of the cardioversions was done with amiodarone, however, it was discontinued because of elevated LFTs. Has not been on any other antiarrhythmics. He is currently on therapy for cardiomyopathy and rate controlled with beta sukumar, Cardizem and digoxin. He has been regularly taking Eliquis for a while now and at least regularly for the last one month. He denies any significant cardiac symptoms including chest pain, palpitation, shortness of breath or dizziness. Procedure history: Echocardiogram ([id number]) on 07/15/2016 at 65 Years. Comments: 07/17/2016 1:19 PM - Hilary Maradiaga Normal LV size with mild LVH, normal systolic function, EF 60%, LA dilatation mild MR and TR, AV not well visualized, mild AR, no AV stenosis, HTP=45mmHg Carotid US- Mild 1-39% stenosis, nonobstructive disease bilaterally on 2015 at 65 Years. 2D Echo - prominent LV size w/ preserved systolic function, dilated LA, echogenic density noted on ant leaflet of MV (could be myxomatous degen or old healed vagetation), valve functioning normally, AV sclerosis, no , mild to mod AR, mild TR, PA 40mmHg on 06/14/2015 at 64 Years. AMBROSIO with cardioversion - cardioverted x 2 with no response on 03/23/2015 at 64 Years. Cardioversion in the month of 02/2015 at 64 Years. LHC - nonischemic cardiomyopathy, prob tachycardia-induced with EF 40%; mild to mod CAD, nonobstructive disease including 40-50% mid LAD stenosis, mild in RCA on 01/24/2015 at 64 Years. AMBROSIO with Cardioversion - converted to SR but failed to remain in SR on 2014 at 64 Years. 2D Echo - fair tech quality; LV and LA are mildly dilated with mod RV and R upper chamber dilatation; global mod LV hypokinesis with EF 35%; in A fib with vent rate of around 120 beats per min. during procedure; anterior mitral leaflet is sclerotic on 01/18/2015 at 64 Years. Comments: 01/30/2015 5:59 PM - Steph Smith with reduced leaflet mobility, posterior leaflet is not significantly thickened ; no evidence for intracardiac shunting is noted; no evidence of pericardial effusion; no intracardiac mass or thrombus formation is visualized. Discharge Summary Procedures None. Discharge Physical Examination stable Hospital Course sotalol 80mg twice daily. increased QTc noted with sotalol 120mg dose, therefore changed to 80mg twice daily. dc metoprolol and digoxin and aspirin continue eliquis Pending Labs Laboratory Tests 07/31/16 04:08: Anion Gap 10, BUN/Creatinine Ratio 16, Basophils # (Auto) 0.1, Basophils (%) ( Auto) 1, Blood Urea Nitrogen 22, Calcium Level 8.9, Carbon Dioxide Level 25, Chloride Level 97, Creatinine 1.34, Eosinophils # (Auto) 0.2, Eosinophils (%) ( Auto) 3, Estimat Glomerular Filtration Rate 53, Glucose Level 84, Hematocrit 35 , Hemoglobin 11.9, Lymphocytes # (Auto) 2.0, Lymphocytes (%) (Auto) 23, Magnesium Level 2.1, Mean Corpuscular Hemoglobin 32, Mean Corpuscular Hemoglobin Concent 34, Mean Corpuscular Volume 95, Mean Platelet Volume 8.0, Monocytes # (Auto) 1.2, Monocytes (%) (Auto) 14, Neutrophils # (Auto) 5.1, Neutrophils (%) (Auto) 59, Phosphorus Level 3.1, Platelet Count 472, Potassium Level 4.1, Red Blood Count 3.68, Red Cell Distribution Width 12.3, Sodium Level 132, White Blood Count 8.6 Discussion & Recommendations Discussion sotalol 80mg bid Follow up appt.: dr palencia in one to two weeks Dicharge Diet: Cardiac Diet Activity as Tolerated: Yes Home Medications Reviewed patient Home Medication Reconciliation Form Discharge Home Medications: Reviewed and agree with Discharge Medication list on patient's Discharge Instruction sheet Condition at discharge stable Clinical Quality Measures DVT/VTE Risk/Contraindication: Risk Factor Score Per Nursin RFS Level Per Nursing on Admit: 2=Moderate Jamie PALENCIA MD Jul 31, 2016 11:45 am
[2016-09-09] MEDS ORDERED: ASCO500T75 PO (14:10)
== END 2016-07-31 13:50 | disposition home or self-care (01) | DRG 310 ==
LOC: ICU 07:13
PROVIDERS: ADMIT Internal Medicine Interventional Cardiology; ATTEND Internal Medicine Interventional Cardiology
DX: I48.91 Unspecified atrial fibrillation (principal); I42.9 Cardiomyopathy, unspecified; I25.10 Atherosclerotic heart disease of native coronary artery without angina pectoris; I05.2 Rheumatic mitral stenosis with insufficiency; Z87.891 Personal history of nicotine dependence; Z79.01 Long term (current) use of anticoagulants
CPT/HCPCS: 36415; 71010; 80048; 83735; 84100; 85025; 93005; 94640

== ENCOUNTER 2016-08-12 13:06 | Day surgery (SDC) | payer MEDICARE, OTHER ==
[~2016-08-12] VITALS: Ht 160 cm; Wt 77.1 kg
[2016-08-12] VITALS (7 sets, daily range): BP systolic 102–125; BP diastolic 65–87
[~2016-08-12 13:06] MED LIST changes: +APIX5TAB PO; +ASPI-983 PO; +CHOL10007 PO; +DIGO125T PO; +DILT240C9 PO; +ENAL2.5T PO; +FURO40TA4 PO; +GUAI600T43 PO; +HYDR-3812 PO; +METO100T2 PO; +MULT-406 PO; +OMG1KC PO; +POTA20TA8 PO; +SODI30SP2 NS; +Sotalol Hcl PO
--- OUTSIDE RECORDS SUMMARY | 2016-08-12 13:10 | XMS REPORT | Continuity of Care Document ---
Author Author [facility] Organization [facility] Address Unknown Phone Unavailable Care Team Providers Care Small Engine Specialist Name Role Phone REBA BAILEY MD PCP Insurance Providers Payer Name Policy Number Subscriber Name Relationship [employer] [id number] Gallito Barros Jr 18 Self / Same [...] 10 Mg PO DAILY 12/23/11 Active Tiotropium [place] 1 Inh IH DAILY 1 INHALATION 12/23/11 [...] Type Severity Reaction Status Last Updated Penicillins ([id number]) Allergy Unknown Active 09/27/05 Immunizations Name Given Type Tetanus Booster (TDap) More than 5yrs Historical Vital Signs Acute Vital Signs Vital Response Date/Time Temperature (Fahrenheit) 98.0 degrees F (97.6 - 99.5) Temperature (Calculated Celsius) 36.34026 degrees C (36.4 - 37.5) Temperature Source Temporal Pulse Rate (adult) 84 bpm (60 - 90) Respiratory Rate 18 bpm (12 - 24) O2 Sat by Pulse Oximetry 96 % (88 - 100) Blood Pressure 116/70 mm Hg Blood Pressure Mean 85 mm Hg Pain Pain Intensity 0 Pain Pain Intensity 0 Height (Feet) 5 feet Height (Inches) 4.00 inches Height (Calculated Centimeters) 162.242359 cm Weight (Pounds) 165 pounds Weight (Ounces) 12.8 oz Weight (Calculated Grams) 26930.616 gm Weight (Calculated Kilograms) 75.162440 kilograms Calculated BMI 31.58 Results Laboratory Results [...] SELECTED GROUPS OF HIGH RISK PATIENTS. [employer] CONSENSUS CONFERENCE ON [...] Tracing only of electrocardiogram completed 01/18/15 YOEL LOZNAO MD Color Doppler echocardiography completed 01/18/15 REBA BAILEY MD Tracing only of electrocardiogram completed 01/18/15 MELISSA BUSTAMANTE MD Transesophageal echocardiography with contrast completed 01/20/15 MELISSA BUSTAMANTE MD Tracing only of electrocardiogram completed 01/21/15 MELISSA BUSTAMANTE MD Tracing only of electrocardiogram completed 01/22/15 MELISSA BUSTAMANTE MD Tracing only of electrocardiogram completed 01/24/15 MELISSA BUSTAMANTE MD Encounters Encounter Location Date/Time Discharged Inpatient Via [facility] 01/18/15 7:29am Recent Diagnosis Atrial fibrillation with rapid ventricular response
--- OUTSIDE RECORDS SUMMARY | 2016-08-12 13:11 | XMS REPORT | Continuity of Care Document ---
Author Author [facility] Organization [facility] Address Unknown Phone Unavailable Care Team Providers Care Cashier Clerk Name Role Phone REBA BAILEY MD PCP Insurance Providers Payer Name Policy Number Subscriber Name Relationship [employer] Medicare [id number] Gallito Barros Jr 18 Self / Same [...] 10 Mg PO DAILY 12/23/11 Active Tiotropium [place] 1 Inh IH DAILY 1 INHALATION 12/23/11 [...] Type Severity Reaction Status Last Updated Penicillins ([id number]) Allergy Unknown Active 09/27/05 Immunizations Name Given Type Tetanus Booster (TDap) More than 5yrs Historical Vital Signs Acute Vital Signs Vital Response Date/Time Temperature (Fahrenheit) 98.0 degrees F (97.6 - 99.5) Temperature (Calculated Celsius) 36.39393 degrees C (36.4 - 37.5) Temperature Source Temporal Pulse Rate (adult) 84 bpm (60 - 90) Respiratory Rate 18 bpm (12 - 24) O2 Sat by Pulse Oximetry 96 % (88 - 100) Blood Pressure 116/70 mm Hg Blood Pressure Mean 85 mm Hg Pain Pain Intensity 0 Pain Pain Intensity 0 Height (Feet) 5 feet Height (Inches) 4.00 inches Height (Calculated Centimeters) 162.957250 cm Weight (Pounds) 165 pounds Weight (Ounces) 12.8 oz Weight (Calculated Grams) 84700.616 gm Weight (Calculated Kilograms) 75.616366 kilograms Calculated BMI 31.58 Results Laboratory Results [...] SELECTED GROUPS OF HIGH RISK PATIENTS. [employer] [place] [place] [employer] CONSENSUS CONFERENCE ON [...] Encounters Encounter Location Date/Time Discharged Inpatient Via [facility] 01/18/15 7:29am Recent Diagnosis Atrial fibrillation with rapid ventricular response
[2016-08-12] MEDS ORDERED: NS IV 1000 ML 1,000 ML ONE (13:28)
[2016-08-12] MEDS ORDERED: NS IV 1000 ML 1,000 ML IV SCH (13:29)
[2016-08-12] MEDS ORDERED: TIOT18CA2 IH (14:05)
[2016-08-12] MEDS ORDERED: METO100T2 PO (14:05)
[2016-08-12] MEDS ORDERED: AMIT25TA9 PO (14:05)
[2016-08-12] MEDS ORDERED: MONT10TA24 PO (14:05)
[2016-08-12] MEDS ORDERED: OMEP20CA12 PO (14:05)
[2016-08-12] MEDS ORDERED: FLUT1DIS27 IH (14:05)
[2016-08-12] MEDS ORDERED: FLUT16SP22 NS (14:05)
[2016-08-12] MEDS ORDERED: BUSP15TA60 PO (14:05)
[2016-08-12] MEDS ORDERED: PRED5TAB PO (14:05)
[2016-08-12] MEDS ORDERED: fentaNYL INJECTION 100 MCG/2 ML AMP ONE (14:06)
[2016-08-12] MEDS ORDERED: proPOfol 200 MG/20 ML (DIPRIVAN) VIAL IV ONE (14:06)
[2016-08-12] MEDS ORDERED: MIDAZOLAM 5 MG/5 ML (VERSED) VIAL ONE (14:06)
[2016-08-12] MEDS ORDERED: SOTA80TA PO (14:14)
[2016-08-12 14:43] LABS: ALBUMIN 4.3 G/DL (3.2-4.5); BILIRUBIN,TOTAL 0.3 MG/DL (0.1-1.0); CALCIUM 9.7 MG/DL (8.5-10.1); CREATININE SERUM 1.38 MG/DL (0.60-1.30); POTASSIUM 4.3 MMOL/L (3.6-5.0); TOTAL PROTEIN 7.8 G/DL (6.4-8.2)
--- NOTE | 2016-08-12 15:09 | Progress Note-Standard ---
Standard Progress Note Progress Notes/Assess & Plan Progress/Assessment & Plan Called to [facility] for cardioversion. Spoke with patient, brief history obtained. Procedure consent signed. Patient given 1mg versed and 40 mg propofol for procedure, VSS, tolerated procedure well. Care to [facility] RN. LOBO ANDRADE CRNA Aug 12, 2016 15:09
--- NOTE | 2016-08-12 17:53 | Cardiac Procedure Note-CS/ASA ---
Pre-Procedure Note Pre-Op Procedure Note H&P Reviewed The H&P was reviewed, patient examined and no changes noted. Date H&P Reviewed: Aug 12, 2016 Time H&P Reviewed: 15:00 Conscious Sedation Pre-Proced Time Reviewed: 15:00 ASA Class: 3 Airway Mallampati Classification: ([place] appropriate class) I. II. III, IV Lungs Heart ASA score ASA 1: a normal healthy patient ASA 2: a patient with a mild systemic disease (mid diabetes, controlled hypertension, obesity ASA 3: a patient with a severe systemic disease that limits activity (angina , COPD, prior Myocardial infarction) ASA 4: a patient with an incapacitating disease that is a constant threat to life (CHF, renal failure) ASA 5: a moribund patient not expected to survive 24 hrs. (ruptured aneurysm) ASA 6: a declared brain patient whose organs are being harvested. For emergent operations, add the letter E after the classification Grade 1 Sedation Plan: Analgesia, Amnesia, Plan communicated to team members, Discussed options with patient/fam, Discussed risks with patient/fam Note The patient is an appropriate candidate to undergo the planned procedure, sedation, and anesthesia. The patient immediately re-assessed prior to indication. Jamie PALENCIA MD Aug 12, 2016 5:53 pm
--- NOTE | 2016-08-12 17:55 | Progress Note-Post Operative ---
Post-Operative Progess Note Pre-Operative Diagnosis atrial fibrillation with rvr Post-Operative Diagnosis sinus rhythm with occasional PACs Post-Op Procedure Note Date of Procedure: Aug 12, 2016 Name of Procedure: Direct electrical Cardioversion Procedure Note/Findings afib with rvr converted to sinus rhythm with single synchronized 200J shock. no neurological complications. Anesthesia Type please anesthesia note Estimated blood loss (mL): none Packing: none Specimen(s) collected none Jamie PALENCIA MD Aug 12, 2016 5:55 pm
--- NOTE | 2016-08-14 08:59 | PROCEDURE REPORT ---
PROCEDURE PHYSICIAN: AMY PALENCIA DATE OF PROCEDURE: 08/12/2016 DIRECT ELECTRICAL CARDIOVERSION: INDICATION: Atrial fibrillation with rapid ventricular rate. PREOPERATIVE DIAGNOSIS: Atrial fibrillation with a rapid ventricular rate. POSTOPERATIVE DIAGNOSES: Successful electrical cardioversion with roman catholic of sinus rhythm. HISTORY: Mr. Barros is a 65-year-old gentleman with atrial fibrillation with rapid ventricular rate. He was loaded with sotalol. He has been on uninterrupted oral anticoagulation therapy for the last one month. He was brought in for elective direct electrical cardioversion. PROCEDURE DETAILS: The patient was brought to the lab after informed consent was taken. Informed consent included the risk of stroke. Sedation was performed with propofol and benzodiazepines by anesthesia. We then sent 1 single synchronized 200 joule shock was performed, which promptly converted the rhythm to sinus rhythm. The patient did not have any neurological complication and tolerated the procedure well. CONCLUSION: 1. Successful direct electrical cardioversion of atrial fibrillation. 2. The patient will continue on oral anticoagulation therapy as well as sotalol. 3. Will follow the patient in the office in 2 to 3 weeks. Job ID: [id number] Dictated Date: 08/12/2016 17:52:30 Domain Architect Date: 08/14/2016 08:53:30 / itzel
[2016-09-09] MEDS ORDERED: ASCO500T75 PO (14:10)
== END 2016-08-12 15:55 | disposition home or self-care (01) ==
LOC: CATH 13:06
PROVIDERS: ATTEND Internal Medicine Interventional Cardiology
DX: I48.91 Unspecified atrial fibrillation (principal); I25.10 Atherosclerotic heart disease of native coronary artery without angina pectoris; I42.9 Cardiomyopathy, unspecified; Z98.890 Other specified postprocedural states; Z79.01 Long term (current) use of anticoagulants; Z79.899 Other long term (current) drug therapy
CPT/HCPCS: 36415; 80053; 87081; 92960; 93005

== ENCOUNTER → 2016-09-09 | Day surgery (SDC) | payer MEDICARE, OTHER ==
[2016-09-09] VITALS (9 sets, daily range): BP systolic 94–131; BP diastolic 51–83
[~2016-09-09] VITALS: Ht 160 cm; Wt 78.9 kg
[~2016-09-09] MED LIST changes: +ASCO500T75 PO; +MIDAZOLAM 5 MG/5 ML (VERSED) VIAL ONE; +MONT10TA24 PO; +NS IV 1000 ML 1,000 ML IV SCH; +NS IV 1000 ML 1,000 ML ONE; +PRED5TAB PO; +SOTA80TA PO; +TIOT18CA2 IH; +fentaNYL INJECTION 100 MCG/2 ML AMP ONE; +proPOfol 200 MG/20 ML (DIPRIVAN) VIAL IV ONE
--- OUTSIDE RECORDS SUMMARY | 2016-09-09 12:42 | XMS REPORT | Continuity of Care Document ---
Author Author [facility] Organization [facility] Address Unknown Phone Unavailable Care Team Providers Care Marble And Granite Polisher Name Role Phone REBA BAILEY MD PCP Insurance Providers Payer Name Policy Number Subscriber Name Relationship [employer] Medicare [id number] Gallito Barros Jr 18 Self / Same [...] 10 Mg PO DAILY 12/23/11 Active Tiotropium [place] 1 Inh IH DAILY 1 INHALATION 12/23/11 [...] Type Severity Reaction Status Last Updated Penicillins ([id number]) Allergy Unknown Active 09/27/05 Immunizations Name Given Type Tetanus Booster (TDap) More than 5yrs Historical Vital Signs Acute Vital Signs Vital Response Date/Time Temperature (Fahrenheit) 98.0 degrees F (97.6 - 99.5) Temperature (Calculated Celsius) 36.64876 degrees C (36.4 - 37.5) Temperature Source Temporal Pulse Rate (adult) 84 bpm (60 - 90) Respiratory Rate 18 bpm (12 - 24) O2 Sat by Pulse Oximetry 96 % (88 - 100) Blood Pressure 116/70 mm Hg Blood Pressure Mean 85 mm Hg Pain Pain Intensity 0 Pain Pain Intensity 0 Height (Feet) 5 feet Height (Inches) 4.00 inches Height (Calculated Centimeters) 162.942116 cm Weight (Pounds) 165 pounds Weight (Ounces) 12.8 oz Weight (Calculated Grams) 89314.616 gm Weight (Calculated Kilograms) 75.480759 kilograms Calculated BMI 31.58 Results Laboratory Results [...] SELECTED GROUPS OF HIGH RISK PATIENTS. [employer] [place] [employer] CONSENSUS CONFERENCE ON [...] Encounters Encounter Location Date/Time Discharged Inpatient Via [facility] 01/18/15 7:29am Recent Diagnosis Atrial fibrillation with rapid ventricular response
--- OUTSIDE RECORDS SUMMARY | 2016-09-09 12:42 | XMS REPORT | Continuity of Care Document ---
Author Author [facility] Organization [facility] Address Unknown Phone Unavailable Care Team Providers Care Grocery Store Bagger Name Role Phone REBA BAILEY MD PCP Insurance Providers Payer Name Policy Number Subscriber Name Relationship Wps Medicare [id number] Gallito Barros Jr 18 Self / Same [...] 10 Mg PO DAILY 12/23/11 Active Tiotropium [place] 1 Inh IH DAILY 1 INHALATION 12/23/11 [...] Type Severity Reaction Status Last Updated Penicillins ([id number]) Allergy Unknown Active 09/27/05 Immunizations Name Given Type Tetanus Booster (TDap) More than 5yrs Historical Vital Signs Acute Vital Signs Vital Response Date/Time Temperature (Fahrenheit) 98.0 degrees F (97.6 - 99.5) Temperature (Calculated Celsius) 36.43311 degrees C (36.4 - 37.5) Temperature Source Temporal Pulse Rate (adult) 84 bpm (60 - 90) Respiratory Rate 18 bpm (12 - 24) O2 Sat by Pulse Oximetry 96 % (88 - 100) Blood Pressure 116/70 mm Hg Blood Pressure Mean 85 mm Hg Pain Pain Intensity 0 Pain Pain Intensity 0 Height (Feet) 5 feet Height (Inches) 4.00 inches Height (Calculated Centimeters) 162.271995 cm Weight (Pounds) 165 pounds Weight (Ounces) 12.8 oz Weight (Calculated Grams) 64346.616 gm Weight (Calculated Kilograms) 75.412501 kilograms Calculated BMI 31.58 Results Laboratory Results [...] SELECTED GROUPS OF HIGH RISK PATIENTS. [employer] CONSENSUS CONFERENCE ON [...] Encounters Encounter Location Date/Time Discharged Inpatient Via [facility] 01/18/15 7:29am Recent Diagnosis Atrial fibrillation with rapid ventricular response
[2016-09-09 13:50] LABS: ALBUMIN 4.2 G/DL (3.2-4.5); BILIRUBIN,TOTAL 0.4 MG/DL (0.1-1.0); CALCIUM 9.6 MG/DL (8.5-10.1); CREATININE SERUM 1.38 MG/DL (0.60-1.30); POTASSIUM 4.2 MMOL/L (3.6-5.0); TOTAL PROTEIN 7.7 G/DL (6.4-8.2)
--- NOTE | 2016-09-09 14:33 | Progress Note-Standard ---
Standard Progress Note Progress Notes/Assess & Plan Progress/Assessment & Plan Called to [facility] for cardioversion. Brief history obtained. Pt on full monitors. [facility] staff and DrHermann in room. Versed 2mg and Propofol 50mg given for sedation. Tolerated procedure well. Care to [facility] RN spontaneous respirations. LOBO ANDRADE CRNA Sep 09, 2016 14:33
--- NOTE | 2016-09-09 20:47 | Cardiac Procedure Note-CS/ASA ---
Pre-Procedure Note Pre-Op Procedure Note H&P Reviewed The H&P was reviewed, patient examined and no changes noted. Date H&P Reviewed: Sep 09, 2016 Time H&P Reviewed: 13:00 Conscious Sedation Pre-Proced Time Reviewed: 13:00 ASA Class: 3 Airway Mallampati Classification: ([place] appropriate class) I. II. III, IV Lungs Heart ASA score ASA 1: a normal healthy patient ASA 2: a patient with a mild systemic disease (mid diabetes, controlled hypertension, obesity ASA 3: a patient with a severe systemic disease that limits activity (angina , COPD, prior Myocardial infarction) ASA 4: a patient with an incapacitating disease that is a constant threat to life (CHF, renal failure) ASA 5: a moribund patient not expected to survive 24 hrs. (ruptured aneurysm) ASA 6: a declared brain patient whose organs are being harvested. For emergent operations, add the letter E after the classification Grade 1 Sedation Plan: Analgesia, Amnesia, Plan communicated to team members, Discussed options with patient/fam, Discussed risks with patient/fam Note The patient is an appropriate candidate to undergo the planned procedure, sedation, and anesthesia. The patient immediately re-assessed prior to indication. Jamie PALENCIA MD Sep 09, 2016 8:47 pm
--- NOTE | 2016-09-09 20:48 | Cardiology Post Procedure Note ---
Post-Procedure Note Post-Op Procedure Note Procedure Start Date: Sep 09, 2016 Procedure Start Time: 14:00 Name of Procedure: direct electrical cardioversion Findings/Procedure Note atrial fibrillation promptly converted to sinus rhythm with 200 J of synchronized shock. Anesthesia Type: Conscious Sedation Estimated blood loss (mL): none Contrast Amount: none Post-Operative Diagnosis Post-operative diagnosis: sinus rhythm Jamie PALENCIA MD Sep 09, 2016 8:48 pm
--- NOTE | 2016-09-10 14:25 | PROCEDURE REPORT ---
PROCEDURE PHYSICIAN: AMY PALENCIA DATE OF PROCEDURE: 09/09/2016 PRIMARY PHYSICIAN: Dr. Yeison Bailey. PRIMARY BICYCLE DESIGNER: Dr. Bustamante. INDICATION: Atrial fibrillation on antiarrhythmic therapy. PREOPERATIVE DIAGNOSIS: Atrial fibrillation with rapid ventricular rate antiarrhythmic therapy. POSTOPERATIVE DIAGNOSES: Sinus rhythm. HISTORY: Mr. Barros is a 65-year-old gentleman with history of valvular heart disease as well as atrial fibrillation. He is on antiarrhythmic therapy. He previously had cardioversion which promptly converted to sinus rhythm, however he reconverted to atrial fibrillation after a couple of weeks or so. He is not very symptomatic with atrial fibrillation, however, was seen in the office with rapid ventricular rate. Therefore, direct electrical cardioversion was planned. He is taking uninterrupted Eliquis for at least the last one month. COMPLICATIONS: None. SPECIMENS: None. Contrast/fluoroscopy: None. Anticoagulation: Adequate. PROCEDURE DETAILS: The patient was brought to the Dietetic Intern after informed consent was taken. Informed consent included the risk of stroke as well. Anesthesia was given by our anesthesia colleagues. We gave 200 joules of synchronized shock with external patch and promptly converted the rhythm to sinus rhythm. There were no neurological complications. The patient tolerated the procedure well. CONCLUSION: 1. The patient will be discharged to follow-up in the office in 3 to 4 weeks with an EKG. 2. The patient will continue Eliquis, antiarrhythmic therapy and rate control agents. Job ID: [id number] Dictated Date: 09/09/2016 21:45:33 Distribution System Operator Date: 09/10/2016 14:17:05 / [email or web address]
== END ==
LOC: CATH 12:39
PROVIDERS: ATTEND Internal Medicine Interventional Cardiology
DX: I48.91 Unspecified atrial fibrillation (principal); I25.10 Atherosclerotic heart disease of native coronary artery without angina pectoris; I10 Essential (primary) hypertension; E78.5 Hyperlipidemia, unspecified; I42.9 Cardiomyopathy, unspecified; Z79.01 Long term (current) use of anticoagulants; Z79.899 Other long term (current) drug therapy; Z98.890 Other specified postprocedural states
CPT/HCPCS: 36415; 80053; 87081; 92960; 93005

== ENCOUNTER → 2016-12-17 | Outpatient (CLI) | payer MEDICARE ==
[~2016-12-17] MED LIST changes: -MIDAZOLAM 5 MG/5 ML (VERSED) VIAL ONE; -NS IV 1000 ML 1,000 ML IV SCH; -NS IV 1000 ML 1,000 ML ONE; -fentaNYL INJECTION 100 MCG/2 ML AMP ONE; -proPOfol 200 MG/20 ML (DIPRIVAN) VIAL IV ONE
[2016-12-17 07:28] LABS: ALBUMIN 4.1 G/DL (3.2-4.5); BILIRUBIN,DIRECT 0.2 MG/DL (0.0-0.3); BILIRUBIN,INDIRECT 0.4 MG/DL; BILIRUBIN,TOTAL 0.6 MG/DL (0.1-1.0); TOTAL PROTEIN 7.3 G/DL (6.4-8.2)
== END ==
LOC: LAB 06:49
PROVIDERS: ATTEND Physician Assistant
DX: I25.10 Atherosclerotic heart disease of native coronary artery without angina pectoris (principal); I48.0 Paroxysmal atrial fibrillation; I50.22 Chronic systolic (congestive) heart failure; E78.2 Mixed hyperlipidemia
CPT/HCPCS: 36415; 80061; 80076

== ENCOUNTER 2017-07-30 10:29 | Inpatient (IN) | payer MEDICARE ==
[~2017-07-30] VITALS: Ht 160 cm; Wt 76.9 kg
[~2017-07-30 10:29] MED LIST changes: +ACHD5005 PO; -HYDR-3812 PO; +METO100T12 PO; -METO100T2 PO
[2017-07-30] MEDS ORDERED: NS IV 500 ML 500 ML IV ONE (10:40)
[2017-07-30] MEDS ORDERED: ACETAMINOPHEN 500 MG TAB (TYLENOL) PO ONE (10:45)
--- NOTE | 2017-07-30 10:48 | ED Respiratory ---
General Chief Complaint: Cough/Cold/Flu Symptoms Stated Complaint: WEAKNESS/SOA Source: patient, EMS Exam Limitations: no limitations History of Present Illness Date Seen by Provider: Jul 30, 2017 Time Seen by Provider: 10:38 Initial Comments Patient presents to ER by EMS with a chief complaint of having about a week's worth of symptoms similar to cold with nasal congestion and cough malaise. Body aches first. He's been using Tylenol couple times a day with his last dose being sometime last night. EMS reports he had a temporal temperature of 100.3 F. He has not had a flu shot. He also has a history of CHF for which she is on Lasix but he does not know the dose. He says he's been taking his medications. He says he has a little shortness of breath and EMS reports that his sats were 91% when fire arrived they put him on 2 L. He was satting in the mid 90s on 2 L the entire time for EMS. He does not wear oxygen routinely. He does not have any other structural lung disease, COPD or asthma. He says his cough has been productive. Allergies and Home Medications Allergies Coded Allergies: Penicillins (Unverified Allergy, Unknown, 09/27/05) Home Medications Acetaminophen/Chlorpheniramine 1 Each Tablet, 2 TAB PO EVERY 4-6 HOURS PRN for COUGH, (Reported) Amitriptyline HCl 25 Mg Tablet, 25 MG PO HS, (Reported) Apixaban 5 Mg Tablet, 5 MG PO BID, (Reported) Ascorbic Acid 500 Mg Tablet, 500 MG PO DAILY, (Reported) Buspirone HCl 15 Mg Tablet, 15 MG PO BID, (Reported) Cholecalciferol (Vitamin D3) 1,000 Unit Capsule, 2,000 UNIT PO DAILY, (Reported) TAKES 2 (1,000 UNIT) CAPSULES Diltiazem HCl 360 Mg Capsule.er, 360 MG PO DAILY, (Reported) Enalapril Maleate 2.5 Mg Tablet, 2.5 MG PO DAILY, (Reported) Fluticasone Propionate 16 Gm [place].susp, 2 SPRAYS NS HS, (Reported) Fluticasone/Salmeterol 1 Each Blst.w.dev, 1 PUFF IH BID, (Reported) Furosemide 40 Mg Tablet, 40 MG PO DAILY, (Reported) Guaifenesin 600 Mg Tab.er.12h, 600 MG PO BID, (Reported) Guaifenesin/Dextromethorphan 118 Ml Liquid, 10 ML PO Q4H PRN for COUGH, ( Reported) Ibandronate Sodium 150 Mg Tablet, 150 MG PO MONTHLY ON THE , (Reported) Montelukast Sodium 10 Mg Tablet, 10 MG PO HS, (Reported) Multivitamin with Minerals 1 Each Tablet, 1 TAB PO DAILY, (Reported) [place] 3 Polyunsat Fatty Acids 1,000 Mg Cap, 1,000 MG PO DAILY, (Reported) Omeprazole 20 Mg Capsule.dr, 20 MG PO DAILY, (Reported) Phenytoin Sodium Extended 100 Mg Capsule, 200 MG PO HS, (Reported) LAST FILLED #360 2015 Potassium Chloride 20 Meq Tab.er.prt, 20 MEQ PO DAILY, (Reported) Prednisone 5 Mg Tablet, 5 MG PO DAILY, (Reported) Sodium Chloride 30 Ml [place], 1-2 SPRAYS NS TID PRN for DRY NOSE, (Reported) Sotalol HCl 80 Mg Tablet, 80 MG PO BID, (Reported) Tiotropium [place] 1 Inh Aerp, 1 CAP IH DAILY, (Reported) Constitutional: chills, diaphoresis, fever, malaise, weakness EENTM: No ear discharge, No ear pain Respiratory: cough, phlegm, short of breath, No wheezing Cardiovascular: No chest pain, No palpitations, No syncope Gastrointestinal: No abdominal pain, No constipation, No diarrhea, No nausea Past Zynflyh-Tatkfd-Vkiitu Hx Patient Social History Alcohol Use: Denies Use Recreational Drug Use: No Smoking Status: Former Smoker Type Used: Cigarettes Former Smoker, Quit: Aug 12, 1999 Recent Hopitalizations: No Immunizations Up To Date Tetanus Booster (TDap): More than 5yrs PED Vaccines UTD: No Date of Pneumonia Vaccine: Apr 28, 2016 Date of Influenza Vaccine: Apr 28, 2016 Seasonal Allergies Seasonal Allergies: Yes Surgeries Surgeries: Cardiac Respiratory History of Respiratory Disorde: Yes Respiratory Disorders: Asthma Cardiovascular History of Cardiac Disorders: Yes Cardiac Disorders: Valvular Heart Disease Neurological Neurological Disorders: Stroke Reproductive System Hx Reproductive Disorders: No Sexually Transmitted Disease: No HIV/AIDS: No Genitourinary History of Genitourinary Disor: No Gastrointestinal History of Gastrointestinal Di: No Musculoskeletal History of Musculoskeletal Dis: Yes Musculoskeletal Disorders: Arthritis, Foot Drop, Contracture Endocrine History of Endocrine Disorders: No HEENT History of HEENT Disorders: No Loss of Vision: Denies Hearing Impairment: Denies Cancer History of Cancer: No Psychosocial History of Psychiatric Problem: No Integumentary History of Skin or Integumenta: No Blood Transfusions History of Blood Disorders: No Adverse Reaction to a Blood Tr: No Family Medical History Significant Family History: No Pertinent Family Hx Family Medial History: Alcoholism G8 BROTHER, Onset:Unknown Arthritis 19 MOTHER, Onset:Unknown Cardiovascular disease G8 SISTER, Onset:60 years & older 19 FATHER, Onset:60 years & older Completed stroke G8 BROTHER, Onset:50's - 60 FH: breast cancer 19 MOTHER, Onset:60 years & older Hypercholesterolemia 19 FATHER, Onset:Unknown Myocardial infarction 19 FATHER, Onset:60 years & older Seizure disorder G8 BROTHER, Onset:50's - 60 Physical Exam Vital Signs Vital Sign - Last 12Hours 07/30/17 07/30/17 10:42 11:01 Temp 100.4 Pulse 99 Resp 18 B/P (MAP) 128/90 (103) O2 Delivery Room Air O2 Flow Rate 1.00 Capillary Refill : General Appearance: WD/WN, mild distress Eyes: Bilateral Eye Normal Inspection, Bilateral Eye PERRL, Bilateral Eye EOMI HEENT: PERRL/EOMI, normal ENT inspection, TMs normal Neck: supple, normal inspection Respiratory: chest non-tender, lungs clear, no respiratory distress, no accessory muscle use, decreased breath sounds Cardiovascular: normal peripheral pulses, regular rate, rhythm Gastrointestinal: normal bowel sounds, non tender, soft Neurologic/Psychiatric: alert, normal mood/affect, oriented x 3 Skin: normal color, warm/dry Focused Exam Evaluation Sepsis Stage: Sepsis Lactate Level 1.8 Time of Focused Exam: 12:15 Respiratory: Chest Non Tender, Lungs Clear, Normal Breath Sounds, No Accessory Muscle Use, No Respiratory Distress Cardiovascular: Regular Rate, Rhythm, No Edema, Normal Peripheral Pulses Capillary Refill: Less Than 3 Seconds Peripheral Pulses: 2+ Radial Pulses (R), 2+ Radial Pulses (L) Skin: normal color, warm/dry Progress/Results/Core Measures Suspected Sepsis SIRS Temperature: Pulse: Respiratory Rate: Laboratory Tests 07/30/17 10:55: White Blood Count 16.0H Blood Pressure / Mean: Laboratory Tests 07/30/17 10:55: Creatinine 1.21, Platelet Count 498H, Total Bilirubin 0.9 Results/Orders Lab Results Laboratory Tests Test 07/30/17 10:55 Range/Units White Blood Count 16.0 H 4.3-11.0 10^3/uL Red Blood Count 3.56 L 4.35-5.85 10^6/uL Hemoglobin 11.7 L 13.3-17.7 G/DL Hematocrit 34 L 40-54 % Mean Corpuscular Volume 96 80-99 FL Mean Corpuscular Hemoglobin 33 25-34 PG Mean Corpuscular Hemoglobin Concent 34 32-36 G/DL Red Cell Distribution Width 12.4 10.0-14.5 % Platelet Count 498 H 130-400 10^3/uL Mean Platelet Volume 8.2 7.4-10.4 FL Neutrophils (%) (Auto) 84 H 42-75 % Lymphocytes (%) (Auto) 4 L 12-44 % Monocytes (%) (Auto) 12 0-12 % Eosinophils (%) (Auto) 0 0-10 % Basophils (%) (Auto) 0 0-10 % Neutrophils # (Auto) 13.4 H 1.8-7.8 X 10^3 Lymphocytes # (Auto) 0.6 L 1.0-4.0 X 10^3 Monocytes # (Auto) 1.9 H 0.0-1.0 X 10^3 Eosinophils # (Auto) 0.0 0.0-0.3 10^3/uL Basophils # (Auto) 0.0 0.0-0.1 10^3/uL Neutrophils % (Manual) 84 % Lymphocytes % (Manual) 3 % Monocytes % (Manual) 13 % Eosinophils % (Manual) 0 % Basophils % (Manual) 0 % Band Neutrophils 0 % Blood Morphology Comment NORMAL Sodium Level 134 L 135-145 MMOL/L Potassium Level 4.2 3.6-5.0 MMOL/L Chloride Level 99 98-107 MMOL/L Carbon Dioxide Level 23 21-32 MMOL/L Anion Gap 12 5-14 MMOL/L Blood Urea Nitrogen 25 H 7-18 MG/DL Creatinine 1.21 0.60-1.30 MG/DL Estimat Glomerular Filtration Rate 60 BUN/Creatinine Ratio 21 Glucose Level 117 H 70-105 MG/DL Calcium Level 9.5 8.5-10.1 MG/DL Magnesium Level 1.9 1.8-2.4 MG/DL Total Bilirubin 0.9 0.1-1.0 MG/DL Aspartate Amino Transf (AST/SGOT) 15 5-34 U/L Alanine Aminotransferase (ALT/SGPT) 13 0-55 U/L Alkaline Phosphatase 80 40-136 U/L C-Reactive Protein High Sensitivity 34.78 H 0.00-0.50 MG/DL B-Type Natriuretic Peptide 108.5 H <100.0 PG/ML Total Protein 7.7 6.4-8.2 GM/DL Albumin 3.5 3.2-4.5 GM/DL Micro Results Microbiology 07/30/17 Influenza Types A,B Antigen (RODNEY) - Final, Complete My Orders Orders - ASHUTOSH GUZMAN Influenza A And B Antigens (07/30/17 10:34) Chest Pa/Lat (2 View) (07/30/17 10:40) BNP (07/30/17 10:40) Cbc With Automated Diff (07/30/17 10:40) Comprehensive Metabolic Panel (07/30/17 10:40) Hs C Reactive Protein (07/30/17 10:40) Magnesium (07/30/17 10:40) Saline Lock/Iv-Start (07/30/17 10:40) Ns Iv 500 Ml (Sodium Chloride 0.9%) (07/30/17 10:40) Acetaminophen Tablet (Tylenol Tablet) (07/30/17 10:45) Albuterol/Ipra Inhalation Soln (Duoneb I (07/30/17 11:00) Svn Sm Volume Nebulizer Rt-Rfs (07/30/17 10:48) Manual Differential (07/30/17 10:55) Sputum Culture (07/30/17 11:08) Lactic Acid Analyzer (07/30/17 12:02) Blood Culture (07/30/17 12:02) Ua Culture If Indicated (07/30/17 12:02) Protime With Inr (07/30/17 12:02) Partial Thromboplastin Time (07/30/17 12:02) O2 (07/30/17 12:02) Saline Lock/Iv-Start (07/30/17 12:02) Vital Signs Adult Sepsis Patie Q1H (07/30/17 12:02) Ceftriaxone Injection (Rocephin Injectio (07/30/17 12:02) Remove Rings In Anticipation O (07/30/17 12:02) Saline Lock/Iv-Start (07/30/17 12:02) Lactated Ringers (Lr 1000 Ml Iv Solution (07/30/17 12:02) Medications Given in ED Current Medications Medications Dose Ordered Sig/Josiah Route Start Time Stop Time Status Last Admin Dose Admin Acetaminophen 1,000 mg ONCE ONCE PO 07/30/17 10:45 07/30/17 10:46 DC 07/30/17 11:18 1,000 MG Albuterol/ Ipratropium 3 ml ONCE ONCE INH 07/30/17 11:00 07/30/17 11:01 DC 07/30/17 11:00 3 ML Lactated Ringer's 1,000 ml @ 0 mls/hr Q0M ONCE IV 07/30/17 12:02 07/30/17 12:08 DC 07/30/17 12:46 0 MLS/HR Sodium Chloride 500 ml @ 0 mls/hr Q0M ONCE IV 07/30/17 10:40 07/30/17 10:42 DC 07/30/17 11:18 1,000 MLS/HR Vital Signs/I&O Vital Sign - Last 12Hours 07/30/17 07/30/17 07/30/17 10:42 11:01 11:18 Temp 100.4 100.4 Pulse 99 Resp 18 B/P (MAP) 128/90 (103) O2 Delivery Room Air Nasal Cannula O2 Flow Rate 1.00 Capillary Refill : Progress Note #1: Time: 10:47 Progress Note We will check a BNP although the patient clinically looks dry so intend to give him some fluids. We'll check a magnesium and CMP second look at his electrolytes. We'll check CBC to see if anemia is contributing to his shortness of breath. Chest x-ray will also help us determine as well as a CRP whether this is at all cardiogenic. Progress Note #2: Time: 13:07 Progress Note We are going to go ahead and bolus him with another liter of fluids as his blood pressure has been going down to 100/70. Medicated with Dr. Valdovinos and she has already seen the patient. Lactate is normal. Current blood pressure is 98/ 67. Diagnostic Imaging Diagonstic Imaging: Xray Plain Films/CT/US/NM/MRI: chest (2v) Comments Infiltrate/consolidation in the left lower lobe VIA [facility]. [place], [place] NAME: MOLINA GAY JR [facility] REC#: [id number] PT STATUS: ADM IN : 1950 PHYSICIAN: ASHUTOSH GUZMAN MD ADMIT DATE: 07/30/17 Draft Date of Exam:07/30/17 CHEST PA/LAT (2 VIEW) INDICATION: Difficulty breathing. TIME OF EXAM: 11:52 a.m. COMPARISON: Correlation is made with prior study from 07/31/2016. FINDINGS: The heart size is stable. There is chronic elevation of the right hemidiaphragm. Airspace infiltrate in the left mid lung field is noted consistent with pneumonia. There is minimal patchy infiltrate in the right upper lobe as well. No effusion or pneumothorax is seen. IMPRESSION: Bilateral airspace infiltrates consistent with pneumonia. Dictated on workstation # [id number] Dict: 07/30/17 1139 Trans: 07/30/[address] [place] [address] [id number] Interpreted by: IESHA KRISHNAN MD Electronically signed by: Reviewed: Reviewed by Me Departure Communication (Admissions) Time/Spoke to Admitting Phy: 12:13 Communication Rebecca: Discussed case lab imaging and rhythm vitals. We'll add some blood cultures and lactate. He is septic but it was thought to be likely influenza. We 'll start him on Rocephin and she is okay with him going to the floor. Pseudomonal Risk: COPD Patient allergy/sensitivity/re: Penicilins (rash) Pneumonia order set available: CAP Non ICU Impression Impression: Primary Impression: Pneumonia Qualified Codes: J18.1 - Lobar pneumonia, unspecified organism Additional Impression: Sepsis Qualified Codes: A41.9 - Sepsis, unspecified organism Disposition: ADMITTED INPATIENT Condition: Stable Admissions Decision to Admit Reason: Admit from ER (General) Decision to Admit/Date: Jul 30, 2017 Time/Decision to Admit Time: 12:14 Departure-Patient Inst. Referrals: REBA LESTER MD (PCP/Family) Primary Care Physician Copy Copies To 1: REBA LESTER MD, TITUS J Jul 30, 2017 10:48
[2017-07-30] MEDS ORDERED: RT-ALBUTEROL/IPRATROPIUM 3 ML (DUONEB) VIAL INH ONE (11:00)
[2017-07-30 11:05] LABS: BASOPHILS % (AUTO) 0 % (0-10); EOSINOPHILS % (AUTO) 0 % (0-10); HEMATOCRIT 34 % (40-54); HEMOGLOBIN 11.7 G/DL (13.3-17.7); LYMPHOCYTES # (AUTO) 0.6 X 10^3 (1.0-4.0); LYMPHOCYTES % (AUTO) 4 % (12-44); MEAN CORPUSCULAR HEMOGLOBIN 33 PG (25-34); MEAN CORPUSCULAR HGB CONC 34 G/DL (32-36); MEAN CORPUSCULAR VOLUME 96 FL (80-99); MEAN PLATELET VOLUME 8.2 FL (7.4-10.4); MONOCYTES # (AUTO) 1.9 X 10^3 (0.0-1.0); MONOCYTES % (AUTO) 12 % (0-12); NEUTROPHILS # (AUTO) 13.4 X 10^3 (1.8-7.8); NEUTROPHILS % (AUTO) 84 % (42-75); PLATELET COUNT 498 10^3/uL (130-400); RED BLOOD COUNT 3.56 10^6/uL (4.35-5.85); RED CELL DISTRIBUTION WIDTH 12.4 % (10.0-14.5)
[2017-07-30 11:22] LABS: ALBUMIN 3.5 GM/DL (3.2-4.5); BAND NEUTROPHILS 0 %; BASOPHILS % (MANUAL) 0 %; BILIRUBIN,TOTAL 0.9 MG/DL (0.1-1.0); CALCIUM 9.5 MG/DL (8.5-10.1); CREATININE SERUM 1.21 MG/DL (0.60-1.30); EOSINOPHILS % (MANUAL) 0 %; LYMPHOCYTES % (MANUAL) 3 %; MAGNESIUM 1.9 MG/DL (1.8-2.4); MONOCYTES % (MANUAL) 13 %; NEUTROPHILS % (MANUAL) 84 %; POTASSIUM 4.2 MMOL/L (3.6-5.0); RBC MORPH NORMAL; TOTAL PROTEIN 7.7 GM/DL (6.4-8.2)
[2017-07-30] MEDS ORDERED: LACTATED RINGERS 1,000 ML IV ONE ×2 (12:02→13:03)
[2017-07-30] MEDS ORDERED: cefTRIAXone 1 GM (ROCEPHIN) VIAL IV STA (12:02)
--- NOTE | 2017-07-30 12:22 | Diagnostic Imaging Report ---
INDICATION: Difficulty breathing. TIME OF EXAM: 11:52 a.m. COMPARISON: Correlation is made with prior study from 07/31/2016. FINDINGS: The heart size is stable. There is chronic elevation of the right hemidiaphragm. Airspace infiltrate in the left mid lung field is noted consistent with pneumonia. There is minimal patchy infiltrate in the right upper lobe as well. No effusion or pneumothorax is seen. IMPRESSION: Bilateral airspace infiltrates consistent with pneumonia. Dictated by: Dictated on workstation # [id number]
[2017-07-30 12:58] LABS: INR 2.2 (0.8-1.4); PROTHROMBIN TIME PATIENT 24.1 SEC (12.2-14.7)
--- NOTE | 2017-07-30 13:17 | History & Physical-Hospitalist ---
HPI History of Present Illness: HPI/Chief Complaint Pt is a 66yoCM with a PMH of COPD, a-fib who presented to the ER for SOB. He has had a coughwith sputum production for the past few days but awoke this morning with much worse SOB prompting him to call EMS. He denies any sick contacts or known fevers but was found to be febrile this AM by EMS on transport. He does have a history of COPD but has not been using his inhalers more. He also complaints of body aches, and nasal congestion. He denies any recent hospitalizations. Source: patient Date Seen 07/30/17 Time Seen by Provider: 13:05 Attending Physician Adri Farias MD PCP Yeison Bailey MD Referring Physician Date of Admission Jul 30, 2017 at 12:15 Home Medications & Allergies Home Medications Reviewed patient Home Medication Reconciliation Form Allergies Allergies Coded Allergies Penicillins (Unverified Allergy, Unknown, 09/27/05) Past Urxsswg-Jaelen-Koqdtx Hx Patient Social History Alcohol Use: Denies Use Recreational Drug Use: No Smoking Status: Former Smoker Former Smoker, Quit: Aug 12, 1999 Type Used: Cigarettes Recent Foreign Travel: No Contact w/other who traveled: No Recent Hopitalizations: No Recent Infectious Disease Expo: No Immunizations Up To Date Tetanus Booster (TDap): Unknown Pediatric: No Date of Pneumonia Vaccine: Apr 28, 2016 Date of Influenza Vaccine: Apr 28, 2016 Seasonal Allergies Seasonal Allergies: Yes Surgeries Yes (Heart surgery at 10 years of age) Cardiac Respiratory Yes COPD Cardiovascular Yes Atrial Fibrillation, Hypertension, Valvular Heart Disease Neurological Yes Stroke (in childhood) Reproductive System Hx Reproductive Disorders: No Sexually Transmitted Disease: No HIV/AIDS: No Genitourinary No Gastrointestinal No Musculoskeletal Yes Arthritis, Foot Drop, Contracture (RUE) Endocrine History of Endocrine Disorders: No HEENT History of HEENT Disorders: No Loss of Vision: Denies Hearing Impairment: Denies Cancer No Psychosocial History of Psychiatric Problem: Yes Behavioral Health Disorders: Anxiety Integumentary History of Skin or Integumenta: No Blood Transfusions History of Blood Disorders: No Adverse Reaction to a Blood Tr: No Family Medical History Family Hx: Alcoholism G8 BROTHER, Onset:Unknown Arthritis 19 MOTHER, Onset:Unknown Cardiovascular disease G8 SISTER, Onset:60 years & older 19 FATHER, Onset:60 years & older Completed stroke G8 BROTHER, Onset:50's - 60 FH: breast cancer 19 MOTHER, Onset:60 years & older Hypercholesterolemia 19 FATHER, Onset:Unknown Myocardial infarction 19 FATHER, Onset:60 years & older Seizure disorder G8 BROTHER, Onset:50's - 60 Review of Systems Constitutional: No chills, No diaphoresis, fever, weakness EENTM: nose congestion, No blurred vision, No double vision Respiratory: cough, No hemoptysis, phlegm, short of breath Cardiovascular: No chest pain, No palpitations Gastrointestinal: No abdominal pain, No constipation, No diarrhea, No nausea, No vomiting Genitourinary: No dysuria, No frequency Musculoskeletal: muscle weakness (chronic due to CVA) Skin: no symptoms reported Psychiatric/Neurological: No Symptoms Reported Physical Exam Physical Exam Vital Signs Vital Sign - Last 12Hours 07/30/17 07/30/17 10:42 11:01 Temp 100.4 Pulse 99 Resp 18 B/P (MAP) 128/90 (103) O2 Delivery Room Air O2 Flow Rate 1.00 Capillary Refill : Less Than 3 Seconds General Appearance: No Apparent Distress, WD/WN Respiratory: No Accessory Muscle Use, No Respiratory Distress, Decreased Breath Sounds Cardiovascular: No JVD, Irregularly Irregular Gastrointestinal: Normal Bowel Sounds, Non Tender, Soft Extremity: Normal Capillary Refill, Other (RUE contracture ) Neurologic/Psychiatric: Alert, Oriented x3 Results Results/Procedures Lab Laboratory Tests 07/30/17 10:55 Radiology Date of Exam:07/30/17 CHEST PA/LAT (2 VIEW) INDICATION: Difficulty breathing. TIME OF EXAM: 11:52 a.m. COMPARISON: Correlation is made with prior study from 07/31/2016. FINDINGS: The heart size is stable. There is chronic elevation of the right hemidiaphragm. Airspace infiltrate in the left mid lung field is noted consistent with pneumonia. There is minimal patchy infiltrate in the right upper lobe as well. No effusion or pneumothorax is seen. IMPRESSION: Bilateral airspace infiltrates consistent with pneumonia. Assessment/Plan Admission Diagnosis Severe Sepsis Diagnosis/Problems Diagnosis/Problems (1) Severe sepsis Status: Acute Assessment & Plan: Bilateral Pneumonia on CXR Febrile, with tachycardia and leukocytosis BP 88/47 while I was in room Will start severe sepsis protocol 30cc/kg bolus to be given in ER Blood cultures and sputum cultures obtained Will get strep pna and legionella antigen Continue Rocephin and Azithro as given in the Er If worsens will broaden to Cefepime for pseudomonal coverage give lung disease (2) Pneumonia Status: Acute Assessment & Plan: Abx as above Qualifiers: Qualified Codes: J18.9 - Pneumonia, unspecified organism (3) COPD (chronic obstructive pulmonary disease) Assessment & Plan: Continue home inhalers MAT protocol Titrate to keep sats >90 (4) Atrial fibrillation Assessment & Plan: Will resume home meds and anticoagulation Clinical Quality Measures Pneumonia: Pseudomonal Risk: COPD ADRI FARIAS MD Jul 30, 2017 13:17
[2017-07-30 14:00] VITALS: BP 101/60
[2017-07-30] MEDS ORDERED: AZITHROMYCIN 500 MG/NS 250 ML IVPB IV NR ×2 (14:00)
[2017-07-30] MEDS ORDERED: ONDANSETRON 4 MG/2 ML (SDV) Z0FRAN IV PRN (14:00)
[2017-07-30] MEDS ORDERED: DILT360C30 PO (14:03)
[2017-07-30] MEDS: NS W/KCL 20 MEQ/L 1,000 ML IV SCH (14:21)
[2017-07-30] MEDS ORDERED: PHEN100C4 PO (14:22)
[2017-07-30] MEDS ORDERED: GUAI-561 PO (14:22)
[2017-07-30] MEDS ORDERED: ACET1TAB37 PO (14:22)
[2017-07-30] MEDS ORDERED: GUAI600T43 PO (14:22)
[2017-07-30] MEDS ORDERED: RT-ALBUTEROL/IPRATROPIUM 3 ML (DUONEB) VIAL INH PRN (15:30)
[2017-07-30] MEDS ORDERED: GUAIFENESIN PO PRN (16:15)
[2017-07-30] MEDS ORDERED: DEXTROMETHORPHAN PO PRN (16:15)
[2017-07-30] MEDS ORDERED: [UNRECOGNIZED DRUG - OTHER] PO PRN (16:15)
[2017-07-30 16:27] VITALS: BP 105/60
[2017-07-30] MEDS ORDERED: RT-ADVAIR HFA 115/21 MCG PER PUFF IH SCH (20:00)
[2017-07-30 20:51] VITALS: BP 105/69
[2017-07-30] MEDS ORDERED: NON-FORMULARY MEDICATION 1 EA EA (Fluticasone/Salmeterol (Advair 500-50 Diskus) 1 PUFF) IH SCH (21:00)
[2017-07-30] MEDS: RT-ADVAIR HFA 115/21 MCG PER PUFF IH SCH (21:12)
[2017-07-30] MEDS: RT-ALBUTEROL/IPRATROPIUM 3 ML (DUONEB) VIAL INH SCH (21:12)
[2017-07-30] MEDS: APIXABAN 5 MG (ELIQUIS) TABLET PO SCH (21:22)
[2017-07-30] MEDS: guaiFENesin (MUCINEX) 600 MG TAB PO SCH (21:22)
[2017-07-30] MEDS: AMITRIPTYLINE 25 MG (ELAVIL) TAB PO SCH (21:23)
[2017-07-30] MEDS: PHENYTOIN 100 MG (DILANTIN) CAP PO SCH (21:23)
[2017-07-30] MEDS: MONTELUKAST 10 MG (SINGULAIR) TAB PO SCH (21:23)
[2017-07-30] MEDS: busPIRone 15 MG (BUSPAR) TABLET PO SCH (21:23)
[2017-07-30] MEDS: guaiFENesin/DM (ROBITUSSIN DM) 10 ML UDC PO PRN (21:52)
[2017-07-31] VITALS: BP 112/61
[2017-07-31] MEDS: NS W/KCL 20 MEQ/L 1,000 ML IV SCH ×4 (01:10→19:21)
[2017-07-31] MEDS: RT-ALBUTEROL/IPRATROPIUM 3 ML (DUONEB) VIAL INH SCH ×4 (03:29→21:16)
[2017-07-31 03:57] VITALS: BP 110/66
[2017-07-31 05:46] LABS: BASOPHILS % (AUTO) 0 % (0-10); EOSINOPHILS % (AUTO) 0 % (0-10); HEMATOCRIT 31 % (40-54); HEMOGLOBIN 10.7 G/DL (13.3-17.7); LYMPHOCYTES # (AUTO) 1.4 X 10^3 (1.0-4.0); LYMPHOCYTES % (AUTO) 10 % (12-44); MEAN CORPUSCULAR HEMOGLOBIN 33 PG (25-34); MEAN CORPUSCULAR HGB CONC 34 G/DL (32-36); MEAN CORPUSCULAR VOLUME 98 FL (80-99); MEAN PLATELET VOLUME 8.5 FL (7.4-10.4); MONOCYTES # (AUTO) 1.7 X 10^3 (0.0-1.0); MONOCYTES % (AUTO) 13 % (0-12); NEUTROPHILS # (AUTO) 10.1 X 10^3 (1.8-7.8); NEUTROPHILS % (AUTO) 76 % (42-75); PLATELET COUNT 487 10^3/uL (130-400); RED BLOOD COUNT 3.21 10^6/uL (4.35-5.85); RED CELL DISTRIBUTION WIDTH 12.4 % (10.0-14.5); WHITE BLOOD COUNT 13.2 10^3/uL (4.3-11.0)
[2017-07-31 06:01] LABS: BUN/CREATININE RATIO 25; CALCIUM 8.6 MG/DL (8.5-10.1); CARBON DIOXIDE 17 MMOL/L (21-32); CHLORIDE 105 MMOL/L (98-107); CREATININE SERUM 0.81 MG/DL (0.60-1.30); GFR ESTIMATED > 60; GLUCOSE 84 MG/DL (70-105); POTASSIUM 4.3 MMOL/L (3.6-5.0); SODIUM 134 MMOL/L (135-145)
[2017-07-31 08:00] VITALS: BP 108/61
[2017-07-31] MEDS ORDERED: UMECLIDINIUM BROMIDE (INCRUSE ELLIPTA) 7'S IH SCH (08:00)
[2017-07-31] MEDS: busPIRone 15 MG (BUSPAR) TABLET PO SCH ×2 (08:02→21:26)
[2017-07-31] MEDS: guaiFENesin (MUCINEX) 600 MG TAB PO SCH ×2 (08:02→21:26)
[2017-07-31] MEDS: AZITHROMYCIN 250 MG TAB (ZITHROMAX) PO SCH (08:02)
[2017-07-31] MEDS: KCL 20 MEQ TAB (K-DUR) PO SCH (08:02)
[2017-07-31] MEDS: predniSONE 5 MG TAB PO SCH (08:02)
[2017-07-31] MEDS: APIXABAN 5 MG (ELIQUIS) TABLET PO SCH ×2 (08:02→21:26)
[2017-07-31] MEDS: cefTRIAXone 1,000 MG/D5W 50 ML IVPB IV SCH ×2 (08:03)
--- NOTE | 2017-07-31 08:32 | Progress Note-Hospitalist ---
Subjective HPI/CC On Admission Date Seen by Provider: Jul 31, 2017 Time Seen by Provider: 07:20 Pt is a 66yoCM with a PMH of COPD, a-fib who presented to the ER for SOB. He has had a coughwith sputum production for the past few days but awoke this morning with much worse SOB prompting him to call EMS. He denies any sick contacts or known fevers but was found to be febrile this AM by EMS on transport. He does have a history of COPD but has not been using his inhalers more. He also complaints of body aches, and nasal congestion. He denies any recent hospitalizations. Subjective/Events-last exam Patient reports feeling better this morning. He did not sleep well due to cough. Surprisingly reports that this sputum is still relatively clear without evidence for hemoptysis. Its volume had increased over the past 72 hours. He denies chills fever or Reiger's but was not aware that his temperature was 102 although he felt extremely weak with increased shortness of breath yesterday which prompted him alerting EMS. He denies chest pain. Objective Exam Vital Signs Vital Sign - Last 12Hours 07/30/17 07/30/17 07/30/17 07/30/17 10:42 11:01 13:25 15:11 Temp 100.4 Pulse 99 Resp 18 B/P (MAP) 128/90 (103) Pulse Ox 95 O2 Delivery Room Air O2 Flow Rate 1.00 FiO2 24 Capillary Refill : Less Than 3 SecondsLess Than 3 Seconds General Appearance: No Apparent Distress, WD/WN Respiratory: Chest Non Tender, No Accessory Muscle Use, No Respiratory Distress , Crackles (Left base with fascicular breath sounds chest is relatively clear elsewhere no wheezing is appreciated.), Other Cardiovascular: Regular Rate, Rhythm, No Edema, No Gallop, No JVD, No Murmur, Normal Peripheral Pulses Gastrointestinal: Normal Bowel Sounds, No Organomegaly, No Pulsatile Mass, Non Tender, Soft Extremity: Normal Capillary Refill, Other Neurologic/Psychiatric: Other (Stick right-sided hemiparesis 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 Likely post viral pneumonia with sputum and blood growing staph. There is been clinical response making methicillin resistance unlikely. For this reason we will hold change in current antibiotic therapy until culture results are present. 2. On presentation patient met criteria for severe sepsis but is responded to fluid resuscitation current vital signs are stable and he does not meet criteria for severe sepsis. 3. 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 4. Post CVA generalized seizure disorder continue Dilantin. The patient is been seizure-free for many years with Dilantin levels typically in the 5-10 range. 5. History of paroxysmal fibrillation continue Eliquis which will suffice for DVT prophylaxis as well. REBA LESTER MD Jul 31, 2017 08:32
[2017-07-31] MEDS ORDERED: TIOTROPIUM BROMIDE (SPIRIVA) 5'S INHALER IH SCH (09:00)
[2017-07-31] MEDS: RT-ADVAIR HFA 115/21 MCG PER PUFF IH SCH ×2 (09:20→21:16)
[2017-07-31] MEDS: UMECLIDINIUM BROMIDE (INCRUSE ELLIPTA) 7'S IH SCH (09:21)
[2017-07-31 12:00] VITALS: BP 111/61
[2017-07-31 16:00] VITALS: BP 106/71
[2017-07-31 20:00] VITALS: BP 121/80
[2017-07-31] MEDS: guaiFENesin/DM (ROBITUSSIN DM) 10 ML UDC PO PRN (21:25)
[2017-07-31] MEDS: PHENYTOIN 100 MG (DILANTIN) CAP PO SCH (21:26)
[2017-07-31] MEDS: AMITRIPTYLINE 25 MG (ELAVIL) TAB PO SCH (21:26)
[2017-07-31] MEDS: MONTELUKAST 10 MG (SINGULAIR) TAB PO SCH (21:26)
[2017-08-01] VITALS: BP 116/84
[2017-08-01 01:54] LABS: BILIRUBIN,URINE NEGATIVE (NEGATIVE); COLOR,URINE YELLOW; GLUCOSE, URINE (UA) NEGATIVE (NEGATIVE); KETONES,URINE NEGATIVE (NEGATIVE); LEUKOCYTE ESTERASE ,URINE 3+ (NEGATIVE); NITRITE,URINE NEGATIVE (NEGATIVE); PH,URINE 5 (5-9); PROTEIN,URINE 2+ (NEGATIVE); UROBILINOGEN,URINE NORMAL (NORMAL)
[2017-08-01 02:08] LABS: BACTERIA,URINE FEW /HPF; CLARITY,URINE CLOUDY; RBC,URINE TNTC /HPF; WBC,URINE TNTC /HPF
[2017-08-01] MEDS: guaiFENesin/DM (ROBITUSSIN DM) 10 ML UDC PO PRN ×2 (02:11→21:14)
[2017-08-01] MEDS: RT-ALBUTEROL/IPRATROPIUM 3 ML (DUONEB) VIAL INH SCH ×4 (02:53→19:07)
[2017-08-01 04:01] VITALS: BP 111/74
[2017-08-01] MEDS: NS W/KCL 20 MEQ/L 1,000 ML IV SCH (04:26)
[2017-08-01] MEDS: predniSONE 5 MG TAB PO SCH (08:00)
[2017-08-01] MEDS: guaiFENesin (MUCINEX) 600 MG TAB PO SCH ×2 (08:00→20:31)
[2017-08-01] MEDS: APIXABAN 5 MG (ELIQUIS) TABLET PO SCH ×2 (08:01→20:31)
[2017-08-01] MEDS: busPIRone 15 MG (BUSPAR) TABLET PO SCH ×2 (08:01→20:31)
[2017-08-01] MEDS: AZITHROMYCIN 250 MG TAB (ZITHROMAX) PO SCH (08:02)
[2017-08-01] MEDS: KCL 20 MEQ TAB (K-DUR) PO SCH (08:02)
[2017-08-01] MEDS: cefTRIAXone 1,000 MG/D5W 50 ML IVPB IV SCH ×2 (08:03)
[2017-08-01 08:49] VITALS: BP 138/79
[2017-08-01] MEDS: RT-ADVAIR HFA 115/21 MCG PER PUFF IH SCH ×2 (09:27→19:08)
[2017-08-01] MEDS: UMECLIDINIUM BROMIDE (INCRUSE ELLIPTA) 7'S IH SCH (09:27)
[2017-08-01] MEDS ORDERED: PHENYTOIN 100 MG (DILANTIN) CAP PO NR (09:30)
--- NOTE | 2017-08-01 10:38 | Progress Note-Hospitalist ---
Subjective HPI/CC On Admission Date Seen by Provider: Aug 01, 2017 Time Seen by Provider: 09:15 Pt is a 66yoCM with a PMH of COPD, a-fib who presented to the ER for SOB. He has had a coughwith sputum production for the past few days but awoke this morning with much worse SOB prompting him to call EMS. He denies any sick contacts or known fevers but was found to be febrile this AM by EMS on transport. He does have a history of COPD but has not been using his inhalers more. He also complaints of body aches, and nasal congestion. He denies any recent hospitalizations. Subjective/Events-last exam patient reports feeling better. Denies chills fever or Reiger's. He also denies chest pain. Only complaint is low but throat dryness. He's been drinking plenty of fluids and is had no lightheadedness going to the bathroom and back reporting less shortness of breath. Still productive of yellowish sputum without blood. Objective Exam Vital Signs Vital Sign - Last 12Hours 07/30/17 07/30/17 07/30/17 07/30/17 10:42 11:01 13:25 15:11 Temp 100.4 Pulse 99 Resp 18 B/P (MAP) 128/90 (103) Pulse Ox 95 O2 Delivery Room Air O2 Flow Rate 1.00 FiO2 24 Capillary Refill : Less Than 3 SecondsLess Than 3 Seconds General Appearance: No Apparent Distress, Anxious Respiratory: Other (persists with rales and rhonchi in the left base with some vesicular breath sounds but less so than yesterday. No wheezing appreciated. Right chest clear) Cardiovascular: Regular Rate, Rhythm, No Edema, No Gallop, No JVD, No Murmur, Normal Peripheral Pulses Gastrointestinal: Normal Bowel Sounds, No Organomegaly, No Pulsatile Mass, Non Tender, Soft Extremity: Pedal Edema Neurologic/Psychiatric: Alert, Oriented x3 Assessment/Plan Assessment and Plan Assess & Plan/Chief Complaint 1. Likely post viral pneumonia with sputum and blood growing staph methicillin sensitive. 2. On presentation patient met criteria for severe sepsis but is responded to fluid resuscitation current vital signs are stable and he does not meet criteria for severe sepsis. Will DC IV fluids today. 3. 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 4. Post CVA generalized seizure disorder continue Dilantin. The patient is been seizure-free for many years with Dilantin levels typically in the 5-10 range. 130 range we'll give extra 200 mg dose of Dilantin's morning continuing 200 at at bedtime. 5. History of paroxysmal fibrillation continue Eliquis which will suffice for DVT prophylaxis as well. REBA LESTER MD Aug 01, 2017 10:38
[2017-08-01 11:46] VITALS: BP 117/83
[2017-08-01 16:00] VITALS: BP 140/78
[2017-08-01 20:00] VITALS: BP 118/63
[2017-08-01] MEDS: AMITRIPTYLINE 25 MG (ELAVIL) TAB PO SCH (20:31)
[2017-08-01] MEDS: PHENYTOIN 100 MG (DILANTIN) CAP PO SCH (20:31)
[2017-08-01] MEDS: MONTELUKAST 10 MG (SINGULAIR) TAB PO SCH (20:31)
[2017-08-02] VITALS (7 sets, daily range): BP systolic 103–130; BP diastolic 72–96
[2017-08-02] MEDS: RT-ALBUTEROL/IPRATROPIUM 3 ML (DUONEB) VIAL INH SCH ×4 (03:12→19:48)
[2017-08-02] MEDS: RT-ADVAIR HFA 115/21 MCG PER PUFF IH SCH ×2 (06:28→19:48)
[2017-08-02] MEDS: UMECLIDINIUM BROMIDE (INCRUSE ELLIPTA) 7'S IH SCH (06:28)
[2017-08-02] MEDS: cefTRIAXone 1,000 MG/D5W 50 ML IVPB IV SCH ×2 (08:04)
[2017-08-02] MEDS: KCL 20 MEQ TAB (K-DUR) PO SCH (08:05)
[2017-08-02] MEDS: predniSONE 5 MG TAB PO SCH (08:05)
[2017-08-02] MEDS: guaiFENesin (MUCINEX) 600 MG TAB PO SCH ×2 (08:05→20:46)
[2017-08-02] MEDS: APIXABAN 5 MG (ELIQUIS) TABLET PO SCH ×2 (08:05→20:44)
[2017-08-02] MEDS: busPIRone 15 MG (BUSPAR) TABLET PO SCH ×2 (08:05→20:45)
[2017-08-02] MEDS: DILTIAZEM 180 MG (CARDIZEM CD) CAP PO SCH (08:32)
[2017-08-02] MEDS: SIMETHICONE 80 MG (MYLICON) CHEW PO PRN ×2 (09:27→20:45)
[2017-08-02] MEDS: SOTALOL 80 MG (BETAPACE) TAB PO SCH ×2 (09:27→20:45)
[2017-08-02] MEDS ORDERED: FUROSEMIDE 40 MG (LASIX) TAB PO NR (11:16)
--- NOTE | 2017-08-02 13:53 | Progress Note-Hospitalist ---
Subjective HPI/CC On Admission Date Seen by Provider: Aug 02, 2017 Time Seen by Provider: 11:45 Pt is a 66yoCM with a PMH of COPD, a-fib who presented to the ER for SOB. He has had a coughwith sputum production for the past few days but awoke this morning with much worse SOB prompting him to call EMS. He denies any sick contacts or known fevers but was found to be febrile this AM by EMS on transport. He does have a history of COPD but has not been using his inhalers more. He also complaints of body aches, and nasal congestion. He denies any recent hospitalizations. Subjective/Events-last exam patient reports feeling better with decreased cough and congestion and decreased sputum production. He's had no Reiger's with MAXIMUM TEMPERATURE around the 101 yesterday evening. Patient denied chest pain or palpitations but nursing staff noted an irregular heart rate as high as 180. Cardizem CD and sotalol resumed and upon my arrival patient continues to report no cardiac symptoms with a heart rate around 110 and irregular. Objective Exam Vital Signs Vital Sign - Last 12Hours 07/30/17 07/30/17 07/30/17 07/30/17 10:42 11:01 13:25 15:11 Temp 100.4 Pulse 99 Resp 18 B/P (MAP) 128/90 (103) Pulse Ox 95 O2 Delivery Room Air O2 Flow Rate 1.00 FiO2 24 Capillary Refill : Less Than 3 SecondsLess Than 3 Seconds General Appearance: No Apparent Distress, WD/WN Respiratory: Chest Non Tender, No Accessory Muscle Use, No Respiratory Distress , Other (U fine bibasilar rales noted without wheezing or rhonchi elsewhere her chest is clear) Cardiovascular: No Gallop, No JVD, No Murmur, Irregularly Irregular, Tachycardia Gastrointestinal: Normal Bowel Sounds, No Organomegaly, No Pulsatile Mass, Non Tender, Soft Extremity: Pedal Edema (3+ right 1-2+ left) Assessment/Plan Assessment and Plan Assess & Plan/Chief Complaint 1. Likely post viral pneumonia with sputum and blood growing staph methicillin sensitive. continue Rocephin 2. On presentation patient met criteria for severe sepsis but is responded to fluid resuscitation current vital signs are stable and he does not meet criteria for severe sepsis. Will DC IV fluids today. 3. 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 4. Post CVA generalized seizure disorder continue Dilantin. The patient is been seizure-free for many years with Dilantin levels typically in the 5-10 range. 130 range we'll give extra 200 mg dose of Dilantin's morning continuing 200 at at bedtime. 5. History of paroxysmal fibrillation continue Eliquis which will suffice for DVT prophylaxis as well. patient is back in atrial fibrillation with rapid ventricular response improving with resumption of Cartia and sotalol currently asymptomatic. REBA LESTER MD Aug 02, 2017 13:53
[2017-08-02] MEDS: MONTELUKAST 10 MG (SINGULAIR) TAB PO SCH (20:44)
[2017-08-02] MEDS: AMITRIPTYLINE 25 MG (ELAVIL) TAB PO SCH (20:45)
[2017-08-02] MEDS: PHENYTOIN 100 MG (DILANTIN) CAP PO SCH (20:45)
[2017-08-03] VITALS (7 sets, daily range): BP systolic 100–136; BP diastolic 60–80
[2017-08-03] MEDS: guaiFENesin/DM (ROBITUSSIN DM) 10 ML UDC PO PRN ×3 (02:10→23:43)
[2017-08-03] MEDS: RT-ALBUTEROL/IPRATROPIUM 3 ML (DUONEB) VIAL INH SCH ×4 (02:14→20:34)
[2017-08-03] MEDS: cefTRIAXone 1,000 MG/D5W 50 ML IVPB IV SCH ×2 (08:01)
[2017-08-03] MEDS: guaiFENesin (MUCINEX) 600 MG TAB PO SCH ×2 (08:02→20:37)
[2017-08-03] MEDS: KCL 20 MEQ TAB (K-DUR) PO SCH (08:02)
[2017-08-03] MEDS: FUROSEMIDE 40 MG (LASIX) TAB PO SCH (08:02)
[2017-08-03] MEDS: APIXABAN 5 MG (ELIQUIS) TABLET PO SCH ×2 (08:02→20:36)
[2017-08-03] MEDS: SOTALOL 80 MG (BETAPACE) TAB PO SCH ×2 (08:02→20:37)
[2017-08-03] MEDS: DILTIAZEM 180 MG (CARDIZEM CD) CAP PO SCH (08:02)
[2017-08-03] MEDS: predniSONE 5 MG TAB PO SCH (08:02)
[2017-08-03] MEDS: busPIRone 15 MG (BUSPAR) TABLET PO SCH ×2 (08:10→20:37)
[2017-08-03] MEDS: UMECLIDINIUM BROMIDE (INCRUSE ELLIPTA) 7'S IH SCH (09:50)
[2017-08-03] MEDS: SIMETHICONE 80 MG (MYLICON) CHEW PO PRN (11:23)
--- NOTE | 2017-08-03 11:23 | Progress Note-Hospitalist ---
Subjective HPI/CC On Admission Date Seen by Provider: Aug 03, 2017 Time Seen by Provider: 10:45 Pt is a 66yoCM with a PMH of COPD, a-fib who presented to the ER for SOB. He has had a coughwith sputum production for the past few days but awoke this morning with much worse SOB prompting him to call EMS. He denies any sick contacts or known fevers but was found to be febrile this AM by EMS on transport. He does have a history of COPD but has not been using his inhalers more. He also complaints of body aches, and nasal congestion. He denies any recent hospitalizations. Objective Exam Vital Signs Vital Sign - Last 12Hours 07/30/17 07/30/17 07/30/17 07/30/17 10:42 11:01 13:25 15:11 Temp 100.4 Pulse 99 Resp 18 B/P (MAP) 128/90 (103) Pulse Ox 95 O2 Delivery Room Air O2 Flow Rate 1.00 FiO2 24 Capillary Refill : Less Than 3 SecondsLess Than 3 Seconds General Appearance: No Apparent Distress Respiratory: No Accessory Muscle Use, Other (by basilar rales left greater than right mild expiratory wheeze bilaterally) Cardiovascular: No Gallop, No JVD, No Murmur, Irregularly Irregular Gastrointestinal: Normal Bowel Sounds, No Organomegaly, No Pulsatile Mass, Non Tender, Soft Assessment/Plan Assessment and Plan Assess & Plan/Chief Complaint 1. Likely post viral pneumonia with sputum and blood growing staph methicillin sensitive. continue Rocephin 2. On presentation patient met criteria for severe sepsis but is responded to fluid resuscitation current vital signs are stable and he does not meet criteria for severe sepsis. . 3. 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 4. Post CVA generalized seizure disorder continue Dilantin. The patient is been seizure-free for many years with Dilantin levels typically in the 5-10 range. 130 range we'll give extra 200 mg dose of Dilantin's morning continuing 200 at at bedtime. 5. History of paroxysmal fibrillation continue Eliquis which will suffice for DVT prophylaxis as well. patient is back in atrial fibrillation that her control of ventricular response today predominantly in the 80-100 beat per minute range. Patient did tolerate ambulation yesterday encouraged to continue. REBA LESTER MD Aug 03, 2017 11:23
[2017-08-03] MEDS: RT-ADVAIR HFA 115/21 MCG PER PUFF IH SCH ×2 (14:33→20:34)
[2017-08-03] MEDS: PHENYTOIN 100 MG (DILANTIN) CAP PO SCH (20:36)
[2017-08-03] MEDS: MONTELUKAST 10 MG (SINGULAIR) TAB PO SCH (20:37)
[2017-08-03] MEDS: AMITRIPTYLINE 25 MG (ELAVIL) TAB PO SCH (20:37)
[2017-08-04] MEDS: RT-ALBUTEROL/IPRATROPIUM 3 ML (DUONEB) VIAL INH SCH ×4 (02:13→18:59)
[2017-08-04 03:51] VITALS: BP 107/62
[2017-08-04 08:00] VITALS: BP 121/74
--- NOTE | 2017-08-04 08:49 | Progress Note-Hospitalist ---
Subjective HPI/CC On Admission Date Seen by Provider: Aug 04, 2017 Time Seen by Provider: 08:30 Pt is a 66yoCM with a PMH of COPD, a-fib who presented to the ER for SOB. He has had a coughwith sputum production for the past few days but awoke this morning with much worse SOB prompting him to call EMS. He denies any sick contacts or known fevers but was found to be febrile this AM by EMS on transport. He does have a history of COPD but has not been using his inhalers more. He also complaints of body aches, and nasal congestion. He denies any recent hospitalizations. Objective Exam Vital Signs Vital Sign - Last 12Hours 07/30/17 07/30/17 07/30/17 07/30/17 10:42 11:01 13:25 15:11 Temp 100.4 Pulse 99 Resp 18 B/P (MAP) 128/90 (103) Pulse Ox 95 O2 Delivery Room Air O2 Flow Rate 1.00 FiO2 24 Capillary Refill : Less Than 3 SecondsLess Than 3 Seconds General Appearance: No Apparent Distress Respiratory: No Accessory Muscle Use, No Respiratory Distress, Crackles (In both bases left greater than right no wheezing noted today.) Cardiovascular: No Gallop, No JVD, No Murmur, Irregularly Irregular Extremity: No Pedal Edema (2+ symmetrical unchanged from yesterday.) Assessment/Plan Assessment and Plan Assess & Plan/Chief Complaint 1. Likely post viral pneumonia with sputum and blood growing staph methicillin sensitive. continue Rocephin. likely discharge tomorrow. 2. On presentation patient met criteria for severe sepsis but is responded to fluid resuscitation current vital signs are stable and he does not meet criteria for severe sepsis. . 3. 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 4. Post CVA generalized seizure disorder continue Dilantin. The patient is been seizure-free for many years with Dilantin levels typically in the 5-10 range. 130 range we'll give extra 200 mg dose of Dilantin's morning continuing 200 at at bedtime. 5. History of paroxysmal fibrillation continue Eliquis which will suffice for DVT prophylaxis as well. patient is back in atrial fibrillation with improving control and ventricular response ventricular response today predominantly in the 90-110beat per minute range. Patient did tolerate ambulation yesterday encouraged to continue. we will increase sotalol today 120 mg twice a day. REBA LESTER MD Aug 04, 2017 08:49
[2017-08-04] MEDS: cefTRIAXone 1,000 MG/D5W 50 ML IVPB IV SCH ×2 (09:01)
[2017-08-04] MEDS: KCL 20 MEQ TAB (K-DUR) PO SCH (09:01)
[2017-08-04] MEDS: guaiFENesin (MUCINEX) 600 MG TAB PO SCH ×2 (09:01→21:48)
[2017-08-04] MEDS: FUROSEMIDE 40 MG (LASIX) TAB PO SCH (09:01)
[2017-08-04] MEDS: APIXABAN 5 MG (ELIQUIS) TABLET PO SCH ×2 (09:01→21:49)
[2017-08-04] MEDS: busPIRone 15 MG (BUSPAR) TABLET PO SCH ×2 (09:01→21:49)
[2017-08-04] MEDS: DILTIAZEM 180 MG (CARDIZEM CD) CAP PO SCH (09:01)
[2017-08-04] MEDS: predniSONE 5 MG TAB PO SCH (09:14)
[2017-08-04] MEDS: SOTALOL 80 MG (BETAPACE) TAB PO SCH ×2 (10:23→21:48)
[2017-08-04] MEDS: UMECLIDINIUM BROMIDE (INCRUSE ELLIPTA) 7'S IH SCH (10:25)
[2017-08-04] MEDS: RT-ADVAIR HFA 115/21 MCG PER PUFF IH SCH ×2 (10:26→18:59)
[2017-08-04 12:00] VITALS: BP 102/69
[2017-08-04 15:55] VITALS: BP 110/74
[2017-08-04 19:52] VITALS: BP 116/73
[2017-08-04] MEDS: guaiFENesin/DM (ROBITUSSIN DM) 10 ML UDC PO PRN (21:48)
[2017-08-04] MEDS: AMITRIPTYLINE 25 MG (ELAVIL) TAB PO SCH (21:48)
[2017-08-04] MEDS: MONTELUKAST 10 MG (SINGULAIR) TAB PO SCH (21:48)
[2017-08-04] MEDS: PHENYTOIN 100 MG (DILANTIN) CAP PO SCH (21:49)
[2017-08-05 00:04] VITALS: BP 100/56
[2017-08-05] MEDS: RT-ALBUTEROL/IPRATROPIUM 3 ML (DUONEB) VIAL INH SCH ×2 (02:21→09:42)
[2017-08-05 08:00] VITALS: BP 117/64
[2017-08-05] MEDS: DILTIAZEM 180 MG (CARDIZEM CD) CAP PO SCH (08:37)
[2017-08-05] MEDS: predniSONE 5 MG TAB PO SCH (08:37)
[2017-08-05] MEDS: guaiFENesin (MUCINEX) 600 MG TAB PO SCH (08:37)
[2017-08-05] MEDS: APIXABAN 5 MG (ELIQUIS) TABLET PO SCH (08:37)
[2017-08-05] MEDS: busPIRone 15 MG (BUSPAR) TABLET PO SCH (08:37)
[2017-08-05] MEDS: KCL 20 MEQ TAB (K-DUR) PO SCH (08:37)
[2017-08-05] MEDS: SOTALOL 80 MG (BETAPACE) TAB PO SCH (08:37)
[2017-08-05] MEDS: FUROSEMIDE 40 MG (LASIX) TAB PO SCH (08:37)
[2017-08-05] MEDS ORDERED: cefTRIAXone 1,000 MG/NS 50 ML IVPB IV SCH ×2 (09:00)
[2017-08-05] MEDS: RT-ADVAIR HFA 115/21 MCG PER PUFF IH SCH (09:42)
[2017-08-05] MEDS: UMECLIDINIUM BROMIDE (INCRUSE ELLIPTA) 7'S IH SCH (09:42)
--- NOTE | 2017-08-05 11:39 | Discharge Summary-Hospitalist ---
Diagnosis/Chief Complaint Date of Admission Jul 30, 2017 at 12:15 Date of Discharge Discharge Date: Aug 05, 2017 Admission Diagnosis Severe Sepsis Discharge Diagnosis 1. Likely post viral pneumonia with sputum and blood growing staph methicillin sensitive. continue Rocephin. likely discharge tomorrow. 2. On presentation patient met criteria for severe sepsis but is responded to fluid resuscitation current vital signs are stable and he does not meet criteria for severe sepsis. . 3. 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 4. Post CVA generalized seizure disorder continue Dilantin. The patient is been seizure-free for many years with Dilantin levels typically in the 5-10 range. 130 range we'll give extra 200 mg dose of Dilantin's morning continuing 200 at at bedtime. 5. History of paroxysmal fibrillation continue Eliquis which will suffice for DVT prophylaxis as well. patient is back in atrial fibrillation with improving control and ventricular response ventricular response today predominantly in the 90-110beat per minute range. Patient did tolerate ambulation yesterday encouraged to continue. we will increase sotalol today 120 mg twice a day. (1) Severe sepsis Status: Acute Assessment & Plan: Bilateral Pneumonia on CXR Febrile, with tachycardia and leukocytosis BP 88/47 while I was in room Will start severe sepsis protocol 30cc/kg bolus to be given in ER Blood cultures and sputum cultures obtained Will get strep pna and legionella antigen Continue Rocephin and Azithro as given in the Er If worsens will broaden to Cefepime for pseudomonal coverage give lung disease (2) Pneumonia Status: Acute Assessment & Plan: Abx as above (3) COPD (chronic obstructive pulmonary disease) Assessment & Plan: Continue home inhalers MAT protocol Titrate to keep sats >90 (4) Atrial fibrillation Assessment & Plan: Will resume home meds and anticoagulation Discharge Summary Discharge Physical Examination Allergies: Coded Allergies: Penicillins (Unverified Allergy, Unknown, 09/27/05) Vitals & I&Os Vital Signs Date Time Temp Pulse Resp B/P (MAP) Pulse Ox O2 Delivery O2 Flow Rate FiO2 08/05/17 09:42 92 Room Air 08/05/17 08:00 96.0 105 20 117/64 (81) 07/31/17 09:31 1.00 07/30/17 15:11 24 Hospital Course Mr. Barros is a 66-year-old white male who presented to the hospital with fever or productive cough and increased shortness of breath. He is known have bibasal infiltrates on chest x-ray and sputum grew out methicillin sensitive staph aureus. A azithromycin was discontinued and Rocephin was continued. His hospital course was complicated by recurrence of paroxysmal atrial fibrillation with rapid ventricular response. Initially his blood pressure had been low in so we had held sotalol and diltiazem. They were resumed with control of ventricular response with persistent atrial fibrillation. The patient is on Eliquis for thromboembolic prophylaxis and this was continued. By the end of this discharge he had received 6 days of IV antibiotics with near complete clearing of his chest and clearing of sputum. He did not have any hemoptysis during his stay to suggest a necrotizing pneumonia. For this reason he was not discharged on antibiotics. He remained asymptomatic from a cardiac standpoint reporting no palpitations or heart racing sensation and actually tolerated heart rates in the 160-180 range without reported symptoms. On his discharge heart rate was predominantly in the 90-1 10 bpm range. His home medications were continued with an increase in the sotalol to 160 milligrams in the morning and 80 mg night. Follow-up appointment with me in one week. Labs (last 24 hrs) Microbiology 07/30/17 Blood Culture - Preliminary, Resulted No growth 07/30/17 Gram Stain - Final, Complete 07/30/17 Sputum Culture - Final, Complete Staphylococcus Aureus Presumptive Loren Albicans 08/01/17 Urine Culture - Final, Complete NO GROWTH Discharge Home Medications: Active Scripts Active Reported Mucinex (Guaifenesin) 600 Mg Tab.er.12h 600 Mg PO BID Tussin Dm Max Liquid (Guaifenesin/Dextromethorphan) 118 Ml Liquid 10 Ml PO Q4H PRN Coricidin Hbp Cold & Flu Tab (Acetaminophen/Chlorpheniramine) 1 Each Tablet 2 Tab PO EVERY 4-6 HOURS PRN Dilantin (Phenytoin Sodium Extended) 100 Mg Capsule 200 Mg PO HS LAST FILLED #360 2015 Diltiazem ER (Diltiazem HCl) 360 Mg Capsule.er 360 Mg PO DAILY Vitamin C with Gabrielle Hips (Ascorbic Acid) 500 Mg Tablet 500 Mg PO DAILY Sotalol (Sotalol HCl) 80 Mg Tablet 80-160 Mg PO BID TAKE 160 MG (2 TABS) IN THE MORNING TAKE 80MG (1 TAB) IN THE EVENING Spiriva (Tiotropium [place]) 1 Inh Aerp 1 Cap IH DAILY Amitriptyline HCl 25 Mg Tablet 25 Mg PO HS Advair 500-50 Diskus (Fluticasone/Salmeterol) 1 Each Blst.w.dev 1 Puff IH BID Montelukast Sodium 10 Mg Tablet 10 Mg PO HS Omeprazole 20 Mg Capsule.dr 20 Mg PO DAILY Buspirone HCl 15 Mg Tablet 15 Mg PO BID Fluticasone Propionate 16 Gm [place].susp 2 Sprays NS HS Prednisone 5 Mg Tablet 5 Mg PO DAILY Ibandronate Sodium 150 Mg Tablet 150 Mg PO MONTHLY ON THE Eliquis (Apixaban) 5 Mg Tablet 5 Mg PO BID Enalapril Maleate 2.5 Mg Tablet 2.5 Mg PO DAILY Furosemide 40 Mg Tablet 40 Mg PO DAILY Saline Nasal [place] (Sodium Chloride) 30 Ml [place] 1-2 Sprays NS TID PRN Klor-Con M20 (Potassium Chloride) 20 Meq Tab.er.prt 20 Meq PO DAILY Fish Oil 1,000 mg Capsule ([place] 3 Polyunsat Fatty Acids) 1,000 Mg Cap 1,000 Mg PO DAILY Men's One Daily (Multivitamin with Minerals) 1 Each Tablet 1 Tab PO DAILY Vitamin D3 (Cholecalciferol (Vitamin D3)) 1,000 Unit Capsule 2,000 Unit PO DAILY TAKES 2 (1,000 UNIT) CAPSULES Instructions to patient/family Please see electronic discharge instructions given to patient. Clinical Quality Measures DVT/VTE Risk/Contraindication: Risk Factor Score Per Nursin RFS Level Per Nursing on Admit: 4+=Very High Pneumonia: Pseudomonal Risk: COPD Copy Copies To 2: REBA LESTER MD Problem Qualifiers (1) Pneumonia: Pneumonia type: due to unspecified organism Laterality: bilateral Lung location: unspecified part of lung Qualified Codes: J18.9 - Pneumonia, unspecified organism REBA LESTER MD Aug 05, 2017 11:39
== END 2017-08-05 12:14 | disposition home or self-care (01) | DRG 871 ==
LOC: EDUNIT# 10:29 → ER 10:31 → 4TH 12:15
PROVIDERS: ADMIT Family Medicine; ATTEND Family Medicine
DX: A41.89 Other specified sepsis (principal); R65.20 Severe sepsis without septic shock; B97.89 Other viral agents as the cause of diseases classified elsewhere; J12.9 Viral pneumonia, unspecified; J44.0 Chronic obstructive pulmonary disease with (acute) lower respiratory infection; I69.351 Hemiplegia and hemiparesis following cerebral infarction affecting right dominant side; I69.398 Other sequelae of cerebral infarction; G40.909 Epilepsy, unspecified, not intractable, without status epilepticus; I48.0 Paroxysmal atrial fibrillation; I38 Endocarditis, valve unspecified; J30.2 Other seasonal allergic rhinitis; I11.0 Hypertensive heart disease with heart failure; I50.9 Heart failure, unspecified; F41.9 Anxiety disorder, unspecified; M19.91 Primary osteoarthritis, unspecified site; M24.541 Contracture, right hand; M21.371 Foot drop, right foot; Z79.01 Long term (current) use of anticoagulants; Z87.891 Personal history of nicotine dependence; Z79.899 Other long term (current) drug therapy
CPT/HCPCS: 36415; 71046; 80048; 80053; 80185; 81000; 83605; 83735; 83880; 85007; 85025; 85027; 85610; 85730; 86141; 87040; 87070; 87077; 87088; 87186; 87205; 87449; 87804; 87899; 94640; 94760; 96361; 96365

== ENCOUNTER 2017-10-19 17:50 | Emergency (ER) | payer MEDICARE, OTHER ==
[~2017-10-19] VITALS: Ht 160 cm; Wt 78.9 kg
[~2017-10-19 17:50] MED LIST changes: +ACET1TAB37 PO; +DILT360C30 PO; +GUAI-561 PO; +PHEN100C4 PO
--- OUTSIDE RECORDS SUMMARY | 2017-10-19 17:57 | XMS REPORT | Continuity of Care Document ---
Author Author [facility] Organization [facility] Address Unknown Phone Unavailable Allergies Active Description Code Type Severity Reaction Onset Reported/Identified Relationship to Patient Clinical Status Yes Penicillins [id number] Drug Allergy Unknown N/A 09/27/2005 Medications There is no data. Problems Date Dx Coded Attending Type Code Diagnosis Diagnosed By 12/24/2011 Ot 276.0 HYPEROSMOLALITY 12/24/2011 Ot 276.8 HYPOPOTASSEMIA 12/24/2011 Ot 293.0 DELIRIUM DUE TO CONDITIONS CLASSIFIED EL 12/24/2011 Ot 345.90 EPILEPSY UNSPEC W/O MENTION INTRACTABLE 12/24/2011 Ot 438.20 LATE EFF- CEREBR DIS,HEMIPLEGIA AFFECTING 12/24/2011 Ot 438.89 OTH LATE EFFECT-CEREBROVASCULAR DISEASE 12/24/2011 Ot 461.0 AC MAXILLARY SINUSITIS 12/24/2011 Ot 493.00 EXTRINSIC ASTHMA, NOS 12/24/2011 Ot 733.00 OSTEOPOROSIS NOS 12/24/2011 Ot V15.81 HX OF PAST NONCOMPLIANCE 12/24/2011 Ot V15.82 HISTORY OF TOBACCO USE 12/24/2011 Ot V58.65 LONG-TERM( CURRENT)USE OF STEROIDS 01/25/2015 REBA LESTER MD Ot 300.02 GENERALIZED ANXIETY DIS 01/25/2015 REBA LESTER MD Ot 345.90 EPILEPSY UNSPEC W/O MENTION INTRACTABLE 01/25/2015 REBA LESTER MD Ot 414.01 CORONARY ATHEROSCLEROSIS OF [place] CORON 01/25/2015 REBA LESTER MD Ot 424.0 MITRAL VALVE DISORDER 01/25/2015 REBA LESTER MD Ot 425.4 PRIM CARDIOMYOPATHY NEC 01/25/2015 REBA LESTER MD Ot 427.31 ATRIAL FIBRILLATION 01/25/2015 REBA LESTER MD Ot 428.0 CONGESTIVE HEART FAILURE NOS 01/25/2015 REBA LESTER MD Ot 428.21 ACUTE SYSTOLIC HEART FAILURE 01/25/2015 REBA LESTER MD Ot 438.20 LATE EFF-CEREBR DIS,HEMIPLEGIA AFFECTING 01/25/2015 TAYLER HARMON, REBA Sanchez Ot 438.89 OTH LATE EFFECT-CEREBROVASCULAR DISEASE 01/25/2015 REBA LESTER MD Ot 459.81 VENOUS INSUFFICIENCY NOS 01/25/2015 REBA LESTER MD Ot 493.90 ASTHMA, UNSPECIFIED 01/25/2015 REBA LESTER MD Ot 574.20 CHOLELITHIASIS NOS 03/06/2015 Ot 733.90 03/06/2015 Ot V58.69 03/06/2015 Ot 733.00 07/20/2015 CHRIS PA, DEIDRA Ahn Ot I10 07/20/2015 CHRIS PA, DEIDRA Ahn Ot I25.10 07/20/2015 CHRIS PA, DEIDRA Ahn Ot I48.0 07/20/2015 CHRIS STAFFORD, DEIDRA Ahn Ot I50.22 08/25/2015 CHRIS STAFFORD, DEIDRA Ahn Ot I10 08/25/2015 CHRIS PA, DEIDRA Ahn Ot I25.10 08/25/2015 CHRIS PA, DEIDRA Ahn Ot I48.0 08/25/2015 CHRIS PA, DEIDRA Ahn Ot I50.22 08/25/2015 Ot 733.00 08/25/2015 CHRIS STAFFORD, DEIDRA Ahn Ot I10 08/25/2015 CHRIS PA, DEIDRA Ahn Ot I25.10 08/25/2015 CHRIS PA, DEIDRA Ahn Ot I48.0 08/25/2015 CHRIS PA, DEIDRA Ahn Ot I50.22 08/25/2015 Ot I10 08/25/2015 Ot I25.10 08/25/2015 Ot I48.0 08/25/2015 Ot I50.9 12/27/2015 Ot 733.00 OSTEOPOROSIS NOS 12/27/2015 CHRIS STAFFORD, DEIDRA Ahn Ot I10 ESSENTIAL (PRIMARY) HYPERTENSION 12/27/2015 CHRIS STAFFORD, DEIDRA Ahn Ot I25.10 ATHSCL HEART DISEASE OF [place] CORONARY 12/27/2015 CHRIS STAFFORD, DEIDRA Ahn Ot I48.0 PAROXYSMAL ATRIAL FIBRILLATION 12/27/2015 CHRIS STAFFORD, DEIDRA Ahn Ot I50.22 CHRONIC SYSTOLIC (CONGESTIVE) HEART FAIL 12/27/2015 Ot I10 ESSENTIAL ( PRIMARY) HYPERTENSION 12/27/2015 Ot I25.10 ATHSCL HEART DISEASE OF [place] CORONARY 12/27/2015 Ot I48.0 PAROXYSMAL ATRIAL FIBRILLATION 12/27/2015 Ot I50.9 HEART FAILURE , UNSPECIFIED 12/27/2015 DEIDRA MALONE Ot I10 ESSENTIAL (PRIMARY) HYPERTENSION 12/27/2015 DEIDRA MALONE Ot I25.10 ATHSCL HEART DISEASE OF [place] CORONARY 12/27/2015 DEIDRA MALONE Ot I48.0 PAROXYSMAL ATRIAL FIBRILLATION 12/27/2015 DEIDRA MALONE K Ot I50.22 CHRONIC SYSTOLIC (CONGESTIVE) HEART FAIL 07/04/2016 MELISSA ADAMS MD Ot E78.2 MIXED HYPERLIPIDEMIA 07/04/2016 BRYAN HARMON, MELISSA Wray Ot I10 ESSENTIAL (PRIMARY) HYPERTENSION 07/04/2016 MELISSA ADAMS MD Ot I25.10 ATHSCL HEART DISEASE OF [place] CORONARY 07/04/2016 TAYLER HARMON, REBA Sanchez Ot G40.909 EPILEPSY, UNSP, NOT INTRACTABLE, WITHOUT 07/11/2016 REBA LESTER MD Ot G40.909 EPILEPSY, UNSP, NOT INTRACTABLE, WITHOUT 07/26/2016 BRYAN HARMON, MELISSA Wray Ot E78.2 MIXED HYPERLIPIDEMIA 07/26/2016 BRYAN HARMON, MELISSA Wray Ot I10 ESSENTIAL (PRIMARY) HYPERTENSION 07/26/2016 MELISSA ADAMS MD Ot I25.10 ATHSCL HEART DISEASE OF [place] CORONARY 07/26/2016 REBA LESTER MD Ot G40.909 EPILEPSY, UNSP, NOT INTRACTABLE, WITHOUT 07/31/2016 SLIME HARMON, Jamie ZAMBRANO Ot 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 07/31/2016 SLIME HARMON, Jamie ZAMBRANO Ot I25.10 ATHSCL HEART DISEASE OF [place] CORONARY 07/31/2016 SLIME HARMON, Jamie ZAMBRANO Ot I42.9 CARDIOMYOPATHY, UNSPECIFIED 07/31/2016 SLIME HARMON, Jamie ZAMBRANO Ot I48.91 UNSPECIFIED ATRIAL FIBRILLATION 07/31/2016 SLIME HARMON, Jamie ZAMBRANO Ot Z79.01 WELDER FABRICATOR (CURRENT) USE OF ANTICOAGULANT 07/31/2016 Jamie PALENCIA MD Ot Z87.891 PERSONAL HISTORY OF NICOTINE DEPENDENCE 07/31/2016 Jamie PALENCIA MD Ot 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 07/31/2016 Jamie PALENCIA MD Ot I25.10 ATHSCL HEART DISEASE OF [place] CORONARY 07/31/2016 Jamie PALENCIA MD Ot I42.9 CARDIOMYOPATHY, UNSPECIFIED 07/31/2016 Jamie PALENCIA MD Ot I48.91 UNSPECIFIED ATRIAL FIBRILLATION 07/31/2016 Jamie PALENCIA MD Ot Z79.01 WELDER FABRICATOR (CURRENT) USE OF ANTICOAGULANT 07/31/2016 Jamie PALENCIA MD Ot Z87.891 PERSONAL HISTORY OF NICOTINE DEPENDENCE 08/08/2016 DEIDRA MALONE Ot E78.2 MIXED HYPERLIPIDEMIA 08/08/2016 DEIDRA MALONE Ot I25.10 ATHSCL HEART DISEASE OF [place] CORONARY 08/08/2016 DEIDRA MALONE Ot I48.0 PAROXYSMAL ATRIAL FIBRILLATION 08/08/2016 DEIDRA MALONE Ot I50.22 CHRONIC SYSTOLIC (CONGESTIVE) HEART FAIL 08/12/2016 Jamie PALENCIA MD Ot I25.10 ATHSCL HEART DISEASE OF [place] CORONARY 08/12/2016 Jamie PALENCIA MD Ot I42.9 CARDIOMYOPATHY, UNSPECIFIED 08/12/2016 Jamie PALENCIA MD Ot I48.91 UNSPECIFIED ATRIAL FIBRILLATION 08/12/2016 Jamie PALENCIA MD Ot Z79.01 WELDER FABRICATOR (CURRENT) USE OF ANTICOAGULANT 08/12/2016 Jamie PALENCIA MD Ot Z79.899 OTHER [facility] (CURRENT) DRUG THERAPY 08/12/2016 Jamie PALENCIA MD Ot Z98.890 OTHER SPECIFIED POSTPROCEDURAL STATES 08/15/2016 Jamie PALENCIA MD Ot I25.10 ATHSCL HEART DISEASE OF [place] CORONARY 08/15/2016 Jamie PALENCIA MD Ot I42.9 CARDIOMYOPATHY, UNSPECIFIED 08/15/2016 SLIME HARMON, Jamie ZAMBRANO Ot I48.91 UNSPECIFIED ATRIAL FIBRILLATION 08/15/2016 SLIME HARMON, Jamie ZAMBRANO Ot Z79.01 WELDER FABRICATOR (CURRENT) USE OF ANTICOAGULANT 08/15/2016 Jamie PALENCIA MD Ot Z79.899 OTHER WELDER FABRICATOR (CURRENT) DRUG THERAPY 08/15/2016 Jamie PALENCIA MD Ot Z98.890 OTHER SPECIFIED POSTPROCEDURAL STATES 08/20/2016 Ot 733.00 OSTEOPOROSIS NOS 08/20/2016 DEIDRA MALONE Ot I10 ESSENTIAL (PRIMARY) HYPERTENSION 08/20/2016 DEIDRA MALONE Ot I25.10 ATHSCL HEART DISEASE OF [place] CORONARY 08/20/2016 DEIDRA MALONE Ot I48.0 PAROXYSMAL ATRIAL FIBRILLATION 08/20/2016 DEIDRA MALONE Ot I50.22 CHRONIC SYSTOLIC (CONGESTIVE) HEART FAIL 08/20/2016 Ot I10 ESSENTIAL ( PRIMARY) HYPERTENSION 08/20/2016 Ot I25.10 ATHSCL HEART DISEASE OF [place] CORONARY 08/20/2016 Ot I48.0 PAROXYSMAL ATRIAL FIBRILLATION 08/20/2016 Ot I50.9 HEART FAILURE , UNSPECIFIED 08/20/2016 MELISSA ADAMS MD Ot E78.2 MIXED HYPERLIPIDEMIA 08/20/2016 MELISSA ADAMS MD Ot I10 ESSENTIAL (PRIMARY) HYPERTENSION 08/20/2016 MELISSA ADAMS MD Ot I25.10 ATHSCL HEART DISEASE OF [place] CORONARY 08/20/2016 TAYLER HARMON, REBA Sanchez Ot G40.909 EPILEPSY, UNSP, NOT INTRACTABLE, WITHOUT 08/20/2016 DEIDRA MALONE Ot E78.2 MIXED HYPERLIPIDEMIA 08/20/2016 DEIDRA MALONE Ot I25.10 ATHSCL HEART DISEASE OF [place] CORONARY 08/20/2016 DEIDRA MALONE Ot I48.0 PAROXYSMAL ATRIAL FIBRILLATION 08/20/2016 DEIDRA MALONE Ot I50.22 CHRONIC SYSTOLIC (CONGESTIVE) HEART FAIL 08/20/2016 DEIDRA MALONE Ot E78.2 MIXED HYPERLIPIDEMIA 08/20/2016 DEIDRA MALONE Ot I25.10 ATHSCL HEART DISEASE OF [place] CORONARY 08/20/2016 DEIDRA MALONE Ot I48.0 PAROXYSMAL ATRIAL FIBRILLATION 08/20/2016 DEIDRA MALONE Ot I50.22 CHRONIC SYSTOLIC (CONGESTIVE) HEART FAIL 09/09/2016 DEIDRA MALONE Ot E78.2 MIXED HYPERLIPIDEMIA 09/09/2016 DEIDRA MALONE Ot I25.10 ATHSCL HEART DISEASE OF [place] CORONARY 09/09/2016 DEIDRA MALONE Ot I48.0 PAROXYSMAL ATRIAL FIBRILLATION 09/09/2016 DEIDRA MALONE Ot I50.22 CHRONIC SYSTOLIC (CONGESTIVE) HEART FAIL 09/27/2016 Jamie PALENCIA MD Ot E78.5 HYPERLIPIDEMIA, UNSPECIFIED 09/27/2016 Jamie PALENCIA MD Ot I10 ESSENTIAL (PRIMARY) HYPERTENSION 09/27/2016 Jamie PALENCIA MD Ot I25.10 ATHSCL HEART DISEASE OF [place] CORONARY 09/27/2016 Jamie PALENCIA MD Ot I42.9 CARDIOMYOPATHY, UNSPECIFIED 09/27/2016 Jamie PALENCIA MD Ot I48.91 UNSPECIFIED ATRIAL FIBRILLATION 09/27/2016 Jamie PALENCIA MD Ot Z79.01 WELDER FABRICATOR (CURRENT) USE OF ANTICOAGULANT 09/27/2016 Jamie PALENCIA MD Ot Z79.899 OTHER [facility] (CURRENT) DRUG THERAPY 09/27/2016 Jamie PALENCIA MD Ot Z98.890 OTHER SPECIFIED POSTPROCEDURAL STATES 10/17/2016 Jamie PALENCIA MD Ot E78.5 HYPERLIPIDEMIA, UNSPECIFIED 10/17/2016 Jamie PALENCIA MD Ot I10 ESSENTIAL (PRIMARY) HYPERTENSION 10/17/2016 Jamie PALENCIA MD Ot I25.10 ATHSCL HEART DISEASE OF [place] CORONARY 10/17/2016 Jamie PALENCIA MD Ot I42.9 CARDIOMYOPATHY, UNSPECIFIED 10/17/2016 Jamie PALENCIA MD Ot I48.91 UNSPECIFIED ATRIAL FIBRILLATION 10/17/2016 Jamie PALENCIA MD Ot Z79.01 WELDER FABRICATOR (CURRENT) USE OF ANTICOAGULANT 10/17/2016 Jamie PALENCIA MD Ot Z79.899 OTHER WELDER FABRICATOR (CURRENT) DRUG THERAPY 10/17/2016 Jamie PALENCIA MD Ot Z98.890 OTHER SPECIFIED POSTPROCEDURAL STATES 10/31/2016 Ot 733.00 OSTEOPOROSIS NOS 10/31/2016 DEIDRA MALONE Ot I10 ESSENTIAL (PRIMARY) HYPERTENSION 10/31/2016 DEIDRA MALONE Ot I25.10 ATHSCL HEART DISEASE OF [place] CORONARY 10/31/2016 DEIDRA MALONE Ot I48.0 PAROXYSMAL ATRIAL FIBRILLATION 10/31/2016 DEIDRA MALONE Ot I50.22 CHRONIC SYSTOLIC (CONGESTIVE) HEART FAIL 10/31/2016 Ot I10 ESSENTIAL ( PRIMARY) HYPERTENSION 10/31/2016 Ot I25.10 ATHSCL HEART DISEASE OF [place] CORONARY 10/31/2016 Ot I48.0 PAROXYSMAL ATRIAL FIBRILLATION 10/31/2016 Ot I50.9 HEART FAILURE , UNSPECIFIED 10/31/2016 MELISSA ADAMS MD Ot E78.2 MIXED HYPERLIPIDEMIA 10/31/2016 MEILSSA ADAMS MD Ot I10 ESSENTIAL (PRIMARY) HYPERTENSION 10/31/2016 MELISSA ADAMS MD Ot I25.10 ATHSCL HEART DISEASE OF [place] CORONARY 10/31/2016 TAYLER HARMON, REBA Sanchez Ot G40.909 EPILEPSY, UNSP, NOT INTRACTABLE, WITHOUT 10/31/2016 DEIDRA MALONE Ot E78.2 MIXED HYPERLIPIDEMIA 10/31/2016 DEIDRA MALONE Ot I25.10 ATHSCL HEART DISEASE OF [place] CORONARY 10/31/2016 DEIDRA MALONE Ot I48.0 PAROXYSMAL ATRIAL FIBRILLATION 10/31/2016 DEIDRA MALONE Ot I50.22 CHRONIC SYSTOLIC (CONGESTIVE) HEART FAIL 10/31/2016 Jamie PALENCIA MD Ot E78.5 HYPERLIPIDEMIA, UNSPECIFIED 10/31/2016 Jamie PALENCIA MD Ot I10 ESSENTIAL (PRIMARY) HYPERTENSION 10/31/2016 Jamie PALENCIA MD Ot I25.10 ATHSCL HEART DISEASE OF [place] CORONARY 10/31/2016 Jamie PALENCIA MD Ot I42.9 CARDIOMYOPATHY, UNSPECIFIED 10/31/2016 Jamie PALENCIA MD Ot I48.91 UNSPECIFIED ATRIAL FIBRILLATION 10/31/2016 Jamie PALENCIA MD Ot Z79.01 FCI (CURRENT) USE OF ANTICOAGULANT 10/31/2016 Jamie PALENCIA MD Ot Z79.899 OTHER WELDER FABRICATOR (CURRENT) DRUG THERAPY 10/31/2016 Jamie PALENCIA MD Ot Z98.890 OTHER SPECIFIED POSTPROCEDURAL STATES 10/31/2016 Jamie PALENCIA MD Ot E78.5 HYPERLIPIDEMIA, UNSPECIFIED 10/31/2016 Jamie PALENCIA MD Ot I10 ESSENTIAL (PRIMARY) HYPERTENSION 10/31/2016 Jamie PALENCIA MD Ot I25.10 ATHSCL HEART DISEASE OF [place] CORONARY 10/31/2016 Jamie PALENCIA MD Ot I42.9 CARDIOMYOPATHY, UNSPECIFIED 10/31/2016 Jamie PALENCIA MD Ot I48.91 UNSPECIFIED ATRIAL FIBRILLATION 10/31/2016 Jamie PALENCIA MD Ot Z79.01 [facility] (CURRENT) USE OF ANTICOAGULANT 10/31/2016 Jamie PALENCIA MD Ot Z79.899 OTHER [facility] (CURRENT) DRUG THERAPY 10/31/2016 Jamie PALENCIA MD Ot Z98.890 OTHER SPECIFIED POSTPROCEDURAL STATES 11/06/2016 Jamie PALENCIA MD Ot E78.5 HYPERLIPIDEMIA, UNSPECIFIED 11/06/2016 Jamie PALENCIA MD Ot I10 ESSENTIAL (PRIMARY) HYPERTENSION 11/06/2016 Jamie PALENCIA MD Ot I25.10 ATHSCL HEART DISEASE OF [place] CORONARY 11/06/2016 Jamie PALENCIA MD Ot I42.9 CARDIOMYOPATHY, UNSPECIFIED 11/06/2016 Jamie PALENCIA MD Ot I48.91 UNSPECIFIED ATRIAL FIBRILLATION 11/06/2016 Jamie PALENCIA MD Ot Z79.01 [facility] (CURRENT) USE OF ANTICOAGULANT 11/06/2016 Jamie PALENCIA MD Ot Z79.899 OTHER [facility] (CURRENT) DRUG THERAPY 11/06/2016 Jamie PALENCIA MD Ot Z98.890 OTHER SPECIFIED POSTPROCEDURAL STATES 01/09/2017 Ot E78.2 MIXED HYPERLIPIDEMIA 01/09/2017 Ot I25.10 ATHSCL HEART DISEASE OF [place] CORONARY 01/09/2017 Ot I48.0 PAROXYSMAL ATRIAL FIBRILLATION 01/09/2017 Ot I50.22 CHRONIC SYSTOLIC (CONGESTIVE) HEART FAIL 07/31/2017 KEV FARIAS MD Ot A41.89 OTHER SPECIFIED SEPSIS 07/31/2017 KEV FARIAS MD Ot B97.89 OTH VIRAL AGENTS THE CAUSE OF DISEASE 07/31/2017 KEV FARIAS MD Ot F41.9 ANXIETY DISORDER, UNSPECIFIED 07/31/2017 KEV FARIAS MD Ot G40.909 EPILEPSY, UNSP, NOT INTRACTABLE, WITHOUT 07/31/2017 KEV FARIAS MD Ot I11.0 HYPERTENSIVE HEART DISEASE WITH HEART FA 07/31/2017 KEV FARIAS MD Ot I38 ENDOCARDITIS, VALVE UNSPECIFIED 07/31/2017 KEV FARIAS MD Ot I48.0 PAROXYSMAL ATRIAL FIBRILLATION 07/31/2017 KEV FARIAS MD Ot I50.9 HEART FAILURE, UNSPECIFIED 07/31/2017 KEV FARIAS MD Ot I69.351 HEMIPLGA FOLLOWING CEREBRAL INFRC AFF RI 07/31/2017 KEV FARIAS MD Ot I69.398 OTHER SEQUELAE OF CEREBRAL INFARCTION 07/31/2017 KEV FARIAS MD Ot J12.9 VIRAL PNEUMONIA, UNSPECIFIED 07/31/2017 KEV FARIAS MD Ot J30.2 OTHER SEASONAL ALLERGIC RHINITIS 07/31/2017 KEV FARIAS MD Ot J44.0 CHRONIC OBSTRUCTIVE PULMON DISEASE W ACU 07/31/2017 KEV FARIAS MD Ot M19.91 PRIMARY OSTEOARTHRITIS, UNSPECIFIED SITE 07/31/2017 KEV FARIAS MD Ot M21.371 FOOT DROP, RIGHT FOOT 07/31/2017 KEV FARIAS MD Ot 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, RIGHT HAND 07/31/2017 KEV FARIAS MD Ot R65.20 SEVERE SEPSIS WITHOUT SEPTIC SHOCK 07/31/2017 KEV FARIAS MD Ot Z79.01 WELDER FABRICATOR (CURRENT) USE OF ANTICOAGULANT 07/31/2017 KEV FARIAS MD Ot Z79.899 OTHER [facility] (CURRENT) DRUG THERAPY 07/31/2017 KEV FARIAS MD Ot Z87.891 PERSONAL HISTORY OF NICOTINE DEPENDENCE 08/05/2017 KEV FARIAS MD Ot A41.89 OTHER SPECIFIED SEPSIS 08/05/2017 KEV FARIAS MD Ot B97.89 OTH VIRAL AGENTS THE CAUSE OF DISEASE 08/05/2017 KEV FARIAS MD Ot F41.9 ANXIETY DISORDER, UNSPECIFIED 08/05/2017 KEV FARIAS MD Ot G40.909 EPILEPSY, UNSP, NOT INTRACTABLE, WITHOUT 08/05/2017 KEV FARIAS MD Ot I11.0 HYPERTENSIVE HEART DISEASE WITH HEART FA 08/05/2017 KEV FARIAS MD Ot I38 ENDOCARDITIS, VALVE UNSPECIFIED 08/05/2017 KEV FARIAS MD Ot I48.0 PAROXYSMAL ATRIAL FIBRILLATION 08/05/2017 KEV FARIAS MD Ot I50.9 HEART FAILURE, UNSPECIFIED 08/05/2017 KEV FARIAS MD Ot I69.351 HEMIPLGA FOLLOWING CEREBRAL INFRC AFF RI 08/05/2017 KEV FARIAS MD Ot I69.398 OTHER SEQUELAE OF CEREBRAL INFARCTION 08/05/2017 KEV FARIAS MD Ot J12.9 VIRAL PNEUMONIA, UNSPECIFIED 08/05/2017 KEV FARIAS MD Ot J30.2 OTHER SEASONAL ALLERGIC RHINITIS 08/05/2017 KEV FARIAS MD Ot J44.0 CHRONIC OBSTRUCTIVE PULMON DISEASE W ACU 08/05/2017 KEV FARIAS MD Ot M19.91 PRIMARY OSTEOARTHRITIS, UNSPECIFIED SITE 08/05/2017 KEV FARIAS MD Ot M21.371 FOOT DROP, RIGHT FOOT 08/05/2017 KEV FARIAS MD, Ot 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, RIGHT HAND 08/05/2017 KEV FARIAS MD, Ot R65.20 SEVERE SEPSIS WITHOUT SEPTIC SHOCK 08/05/2017 JARRETT HARMON, KEV Ayala Ot Z79.01 WELDER FABRICATOR (CURRENT) USE OF ANTICOAGULANT 08/05/2017 KEV FARIAS MD Ot Z79.899 OTHER WELDER FABRICATOR (CURRENT) DRUG THERAPY 08/05/2017 KEV FARIAS MD Ot Z87.891 PERSONAL HISTORY OF NICOTINE DEPENDENCE 09/17/2017 DEIDRA MALONE Ot I10 ESSENTIAL (PRIMARY) HYPERTENSION 09/17/2017 DEIDRA MALONE Ot I25.10 ATHSCL HEART DISEASE OF [place] CORONARY 09/17/2017 DEIDRA MALONE Ot I48.0 PAROXYSMAL ATRIAL FIBRILLATION 09/17/2017 DEIDRA MALONE Ot I50.22 CHRONIC SYSTOLIC (CONGESTIVE) HEART FAIL 09/17/2017 Ot I10 ESSENTIAL ( PRIMARY) HYPERTENSION 09/17/2017 Ot I25.10 ATHSCL HEART DISEASE OF [place] CORONARY 09/17/2017 Ot I48.0 PAROXYSMAL ATRIAL FIBRILLATION 09/17/2017 Ot I50.9 HEART FAILURE , UNSPECIFIED 09/17/2017 BRYAN HARMON, MELISSA Wray Ot E78.2 MIXED HYPERLIPIDEMIA 09/17/2017 BRYAN HARMON, MELISSA Wray Ot I10 ESSENTIAL (PRIMARY) HYPERTENSION 09/17/2017 BRYAN HARMON, MELISSA Wray Ot I25.10 ATHSCL HEART DISEASE OF [place] CORONARY 09/17/2017 TAYLER HARMON, REBA Sanchez Ot G40.909 EPILEPSY, UNSP, NOT INTRACTABLE, WITHOUT 09/17/2017 DEIDRA MALONE Ot E78.2 MIXED HYPERLIPIDEMIA 09/17/2017 DEIDRA MALONE Ot I25.10 ATHSCL HEART DISEASE OF [place] CORONARY 09/17/2017 DEIDRA MAOLNE Ot I48.0 PAROXYSMAL ATRIAL FIBRILLATION 09/17/2017 DEIDRA MALONE Ot I50.22 CHRONIC SYSTOLIC (CONGESTIVE) HEART FAIL 09/17/2017 SLIME HARMON, Jamie ZAMBRANO Ot E78.5 HYPERLIPIDEMIA, UNSPECIFIED 09/17/2017 SLIME HARMON, Jamie ZAMBRANO Ot I10 ESSENTIAL (PRIMARY) HYPERTENSION 09/17/2017 Jamie PALENCIA MD Ot I25.10 ATHSCL HEART DISEASE OF [place] CORONARY 09/17/2017 Jamie PALENCIA MD Ot I42.9 CARDIOMYOPATHY, UNSPECIFIED 09/17/2017 Jamie PALENCIA MD Ot I48.91 UNSPECIFIED ATRIAL FIBRILLATION 09/17/2017 Jamie PALENCIA MD Ot Z79.01 WELDER FABRICATOR (CURRENT) USE OF ANTICOAGULANT 09/17/2017 Jamie PALENCIA MD Ot Z79.899 OTHER [facility] (CURRENT) DRUG THERAPY 09/17/2017 Jamie PALENCIA MD, Ot Z98.890 OTHER SPECIFIED POSTPROCEDURAL STATES 09/17/2017 Ot E78.2 MIXED HYPERLIPIDEMIA 09/17/2017 Ot I25.10 ATHSCL HEART DISEASE OF [place] CORONARY 09/17/2017 Ot I48.0 PAROXYSMAL ATRIAL FIBRILLATION 09/17/2017 Ot I50.22 CHRONIC SYSTOLIC (CONGESTIVE) HEART FAIL Procedures Code Description Performed By Performed On 99.61 ATRIAL CARDIOVERSION 01/18/2015 37.22 LEFT HEART CARDIAC CATH 01/24/2015 88.53 LT HEART ANGIOCARDIOGRAM 01/24/2015 88.56 CORONAR ARTERIOGR-2 CATH 01/24/2015 Results Test Result Range Comprehensive metabolic panel - 07/03/16 07:01 Serum or plasma sodium measurement (moles/volume) 130 mmol/L 135-145 Serum or plasma potassium measurement (moles/volume) 4.1 mmol/L 3.6-5.0 Serum or plasma chloride measurement (moles/volume) 94 mmol/L 98-107 Carbon dioxide 25 mmol/L 21-32 Serum or plasma anion gap determination (moles/volume) 11 mmol/L 5-14 Serum or plasma urea nitrogen measurement (mass/volume) 14 mg/dL 7-18 Serum or plasma creatinine measurement (mass/volume) 1.26 mg/dL 0.60-1.30 Serum or plasma urea nitrogen/creatinine mass ratio 11 NRG Serum or plasma creatinine measurement with calculation of estimated glomerular filtration rate 57 NRG Serum or plasma glucose measurement (mass/volume) 94 mg/dL 70-105 Serum or plasma calcium measurement (mass/volume) 9.4 mg/dL 8.5-10.1 Serum or plasma total bilirubin measurement (mass/volume) 0.4 mg/dL 0.1-1.0 Serum or plasma alkaline phosphatase measurement (enzymatic activity/volume) 80 U/L 40-136 Serum or plasma aspartate aminotransferase measurement (enzymatic activity/ volume) 14 U/L 5-34 Serum or plasma alanine aminotransferase measurement (enzymatic activity/volume ) 15 U/L 0-55 Serum or plasma protein measurement (mass/volume) 6.8 g/dL 6.4-8.2 Serum or plasma albumin measurement (mass/volume) 3.9 g/dL 3.2-4.5 Lipid 1996 panel - 07/03/16 07:01 Serum or plasma triglyceride measurement (mass/volume) 54 mg/dL <150 Serum or plasma cholesterol measurement (mass/volume) 146 mg/dL < 200 Serum or plasma cholesterol in HDL measurement (mass/volume) 45 mg/ dL 40-60 Cholesterol in LDL [mass/volume] in serum or plasma by direct assay 90 mg/dL 1-129 Serum or plasma cholesterol in VLDL measurement (mass/volume) 11 mg/ dL 5-40 Serum or plasma phenytoin measurement (mass/volume) - 07/03/16 07:01 Serum or plasma phenytoin measurement (mass/volume) 4.1 ug/mL 10.0-20.0 Complete blood count (CBC) with automated white blood cell (WBC) differential - 07/31/16 04:08 Blood leukocytes automated count (number/volume) 8.6 10*3/uL 4.3-11.0 Blood erythrocytes automated count (number/volume) 3.68 10*6/uL 4.35-5.85 Venous blood hemoglobin measurement (mass/volume) 11.9 g/dL 13.3-17.7 Blood hematocrit (volume fraction) 35 % 40-54 Automated erythrocyte mean corpuscular volume 95 [foz_us] 80-99 Automated erythrocyte mean corpuscular hemoglobin (mass per erythrocyte) 32 pg 25-34 Automated erythrocyte mean corpuscular hemoglobin concentration measurement ( mass/volume) 34 g/dL 32-36 Automated erythrocyte distribution width ratio 12.3 % 10.0-14.5 Automated blood platelet count (count/volume) 472 10*3/uL 130-400 Automated blood platelet mean volume measurement 8.0 [foz_us] 7.4-10.4 Automated blood neutrophils/100 leukocytes 59 % 42-75 Automated blood lymphocytes/100 leukocytes 23 % 12-44 Blood monocytes/100 leukocytes 14 % 0-12 Automated blood eosinophils/100 leukocytes 3 % 0-10 Automated blood basophils/100 leukocytes 1 % 0-10 Blood neutrophils automated count (number/volume) 5.1 10*3 1.8-7.8 Blood lymphocytes automated count (number/volume) 2.0 10*3 1.0-4.0 Blood monocytes automated count (number/volume) 1.2 10*3 0.0-1.0 Automated eosinophil count 0.2 10*3/uL 0.0-0.3 Automated blood basophil count (count/volume) 0.1 10*3/uL 0.0-0.1 Whole blood basic metabolic panel - 07/31/16 04:08 Serum or plasma sodium measurement (moles/volume) 132 mmol/L 135-145 Serum or plasma potassium measurement (moles/volume) 4.1 mmol/L 3.6-5.0 Serum or plasma chloride measurement (moles/volume) 97 mmol/L 98-107 Carbon dioxide 25 mmol/L 21-32 Serum or plasma anion gap determination (moles/volume) 10 mmol/L 5-14 Serum or plasma urea nitrogen measurement (mass/volume) 22 mg/dL 7-18 Serum or plasma creatinine measurement (mass/volume) 1.34 mg/dL 0.60-1.30 Serum or plasma urea nitrogen/creatinine mass ratio 16 NRG Serum or plasma creatinine measurement with calculation of estimated glomerular filtration rate 53 NRG Serum or plasma glucose measurement (mass/volume) 84 mg/dL 70-105 Serum or plasma calcium measurement (mass/volume) 8.9 mg/dL 8.5-10.1 Serum or plasma phosphate measurement (mass/volume) - 07/31/16 04:08 Serum or plasma phosphate measurement (mass/volume) 3.1 mg/dL 2.3-4.7 Magnesium - 07/31/16 04:08 Magnesium 2.1 mg/dL 1.8-2.4 Comprehensive metabolic panel - 08/12/16 13:48 Serum or plasma sodium measurement (moles/volume) 137 mmol/L 135-145 Serum or plasma potassium measurement (moles/volume) 4.3 mmol/L 3.6-5.0 Serum or plasma chloride measurement (moles/volume) 98 mmol/L 98-107 Carbon dioxide 27 mmol/L 21-32 Serum or plasma anion gap determination (moles/volume) 12 mmol/L 5-14 Serum or plasma urea nitrogen measurement (mass/volume) 16 mg/dL 7-18 Serum or plasma creatinine measurement (mass/volume) 1.38 mg/dL 0.60-1.30 Serum or plasma urea nitrogen/creatinine mass ratio 12 NRG Serum or plasma creatinine measurement with calculation of estimated glomerular filtration rate 52 NRG Serum or plasma glucose measurement (mass/volume) 94 mg/dL 70-105 Serum or plasma calcium measurement (mass/volume) 9.7 mg/dL 8.5-10.1 Serum or plasma total bilirubin measurement (mass/volume) 0.3 mg/dL 0.1-1.0 Serum or plasma alkaline phosphatase measurement (enzymatic activity/volume) 91 U/L 40-136 Serum or plasma aspartate aminotransferase measurement (enzymatic activity/ volume) 14 U/L 5-34 Serum or plasma alanine aminotransferase measurement (enzymatic activity/volume ) 15 U/L 0-55 Serum or plasma protein measurement (mass/volume) 7.8 g/dL 6.4-8.2 Serum or plasma albumin measurement (mass/volume) 4.3 g/dL 3.2-4.5 Methicillin resistant Staphylococcus aureus (MRSA) screening culture - 13:48 Methicillin resistant Staphylococcus aureus (MRSA) screening culture NEG [facility] Comprehensive metabolic panel - 09/09/16 13:25 Serum or plasma sodium measurement (moles/volume) 136 mmol/L 135-145 Serum or plasma potassium measurement (moles/volume) 4.2 mmol/L 3.6-5.0 Serum or plasma chloride measurement (moles/volume) 97 mmol/L 98-107 Carbon dioxide 27 mmol/L 21-32 Serum or plasma anion gap determination (moles/volume) 12 mmol/L 5-14 Serum or plasma urea nitrogen measurement (mass/volume) 18 mg/dL 7-18 Serum or plasma creatinine measurement (mass/volume) 1.38 mg/dL 0.60-1.30 Serum or plasma urea nitrogen/creatinine mass ratio 13 NRG Serum or plasma creatinine measurement with calculation of estimated glomerular filtration rate 52 NRG Serum or plasma glucose measurement (mass/volume) 100 mg/dL 70-105 Serum or plasma calcium measurement (mass/volume) 9.6 mg/dL 8.5-10.1 Serum or plasma total bilirubin measurement (mass/volume) 0.4 mg/dL 0.1-1.0 Serum or plasma alkaline phosphatase measurement (enzymatic activity/volume) 96 U/L 40-136 Serum or plasma aspartate aminotransferase measurement (enzymatic activity/ volume) 12 U/L 5-34 Serum or plasma alanine aminotransferase measurement (enzymatic activity/volume ) 15 U/L 0-55 Serum or plasma protein measurement (mass/volume) 7.7 g/dL 6.4-8.2 Serum or plasma albumin measurement (mass/volume) 4.2 g/dL 3.2-4.5 Methicillin resistant Staphylococcus aureus (MRSA) screening culture - 13:25 Methicillin resistant Staphylococcus aureus (MRSA) screening culture NEG [facility] Influenza virus A and B antigen detection - 07/30/17 10:35 FLU RESULT NEGATIVE FOR INFLUENZA A AND B ANTIGENS BY IA [facility] Complete blood count (CBC) with automated white blood cell (WBC) differential - 07/30/17 10:55 Blood leukocytes automated count (number/volume) 16.0 10*3/uL 4.3-11.0 Blood erythrocytes automated count (number/volume) 3.56 10*6/uL 4.35-5.85 Venous blood hemoglobin measurement (mass/volume) 11.7 g/dL 13.3-17.7 Blood hematocrit (volume fraction) 34 % 40-54 Automated erythrocyte mean corpuscular volume 96 [foz_us] 80-99 Automated erythrocyte mean corpuscular hemoglobin (mass per erythrocyte) 33 pg 25-34 Automated erythrocyte mean corpuscular hemoglobin concentration measurement ( mass/volume) 34 g/dL 32-36 Automated erythrocyte distribution width ratio 12.4 % 10.0-14.5 Automated blood platelet count (count/volume) 498 10*3/uL 130-400 Automated blood platelet mean volume measurement 8.2 [foz_us] 7.4-10.4 Automated blood neutrophils/100 leukocytes 84 % 42-75 Automated blood lymphocytes/100 leukocytes 4 % 12-44 Blood monocytes/100 leukocytes 12 % 0-12 Automated blood eosinophils/100 leukocytes 0 % 0-10 Automated blood basophils/100 leukocytes 0 % 0-10 Blood neutrophils automated count (number/volume) 13.4 10*3 1.8-7.8 Blood lymphocytes automated count (number/volume) 0.6 10*3 1.0-4.0 Blood monocytes automated count (number/volume) 1.9 10*3 0.0-1.0 Automated eosinophil count 0.0 10*3/uL 0.0-0.3 Automated blood basophil count (count/volume) 0.0 10*3/uL 0.0-0.1 Comprehensive metabolic panel - 07/30/17 10:55 Serum or plasma sodium measurement (moles/volume) 134 mmol/L 135-145 Serum or plasma potassium measurement (moles/volume) 4.2 mmol/L 3.6-5.0 Serum or plasma chloride measurement (moles/volume) 99 mmol/L 98-107 Carbon dioxide 23 mmol/L 21-32 Serum or plasma anion gap determination (moles/volume) 12 mmol/L 5-14 Serum or plasma urea nitrogen measurement (mass/volume) 25 mg/dL 7-18 Serum or plasma creatinine measurement (mass/volume) 1.21 mg/dL 0.60-1.30 Serum or plasma urea nitrogen/creatinine mass ratio 21 NRG Serum or plasma creatinine measurement with calculation of estimated glomerular filtration rate 60 NRG Serum or plasma glucose measurement (mass/volume) 117 mg/dL 70-105 Serum or plasma calcium measurement (mass/volume) 9.5 mg/dL 8.5-10.1 Serum or plasma total bilirubin measurement (mass/volume) 0.9 mg/dL 0.1-1.0 Serum or plasma alkaline phosphatase measurement (enzymatic activity/volume) 80 U/L 40-136 Serum or plasma aspartate aminotransferase measurement (enzymatic activity/ volume) 15 U/L 5-34 Serum or plasma alanine aminotransferase measurement (enzymatic activity/volume ) 13 U/L 0-55 Serum or plasma protein measurement (mass/volume) 7.7 g/dL 6.4-8.2 Serum or plasma albumin measurement (mass/volume) 3.5 g/dL 3.2-4.5 Magnesium - 07/30/17 10:55 Magnesium 1.9 mg/dL 1.8-2.4 Blood manual differential performed detection - 07/30/17 10:55 Blood monocytes/100 leukocytes 13 % NRG Manual blood segmented neutrophils/100 leukocytes 84 % NRG Blood band neutrophils/100 leukocytes 0 % NRG Manual blood lymphocytes/100 leukocytes 3 % NRG Manual eosinophils/100 leukocytes in nose 0 % NRG Manual blood basophils/100 leukocytes 0 % NRG Blood erythrocyte morphology finding identification NORMAL NRG Serum or plasma lithium measurement (moles/volume) - 07/30/17 10:55 BNP level 108.5 pg/mL <100.0 Serum or plasma C reactive protein measurement (mass/volume) - 07/30/17 10:55 Serum or plasma C reactive protein measurement (mass/volume) 34.78 mg/dL 0.00-0.50 Sputum Gram stain - 07/30/17 11:00 GRAM STAIN SPUTUM AND MIXED BACTERIAL PANTERA NRG Bacterial sputum culture - 07/30/17 11:00 FREE TEXT EXTERNAL PLUS NORMAL PANTERA NRG QUANTITY OF GROWTH Abundant Growth NRG MRSA AGAR Screening test for MRSA is NEGATIVE (Final to follow) NRG Bacterial sputum culture [id number] NRG Bacterial susceptibility panel - 07/30/17 11:00 Oxacillin susceptibility test by minimum inhibitory concentration < = NRG Gentamicin susceptibility test by minimum inhibitory concentration < = NRG Clindamycin susceptibility test by minimum inhibitory concentration R NRG Erythromycin susceptibility test by minimum inhibitory concentration R NRG Trimethoprim/sulfamethoxazole susceptibility test by minimum inhibitoryconcentration S NRG Vancomycin susceptibility test by minimum inhibitory concentration < = NRG Levofloxacin susceptibility test by minimum inhibitory concentration <= NRG Rifampin susceptibility test by minimum inhibitory concentration <= NRG Tetracycline susceptibility test by minimum inhibitory concentration <= NRG Blood lactic acid measurement (moles/volume) - 07/30/17 12:30 Blood lactic acid measurement (moles/volume) 0.89 mmol/L 0.50-2.00 PT panel in platelet poor plasma by coagulation assay - 07/30/17 12:30 Prothrombin time (PT) in platelet poor plasma by coagulation assay 24.1 s 12.2-14.7 INR in platelet poor plasma or blood by coagulation assay 2.2 0.8-1.4 Activated partial thromboplastin time (aPTT) in platelet poor plasma bycoagulation assay - 07/30/17 12:30 Activated partial thromboplastin time (aPTT) in platelet poor plasma bycoagulation assay 47 s 24-35 Bacterial blood culture - 07/30/17 12:30 FREE TEXT EXTERNAL REFER TO SPUTUM CULTURE M1413, SAME NRG QUANTITY OF GROWTH . NRG MRSA AGAR Screening test for MRSA is NEGATIVE (Final to follow) NRG Bacterial blood culture SEE COMMEN NRG Bacterial blood culture - 07/30/17 16:20 Bacterial blood culture NG NRG Complete blood count (CBC) with automated white blood cell (WBC) differential - 07/31/17 05:00 Blood leukocytes automated count (number/volume) 13.2 10*3/uL 4.3-11.0 Blood erythrocytes automated count (number/volume) 3.21 10*6/uL 4.35-5.85 Venous blood hemoglobin measurement (mass/volume) 10.7 g/dL 13.3-17.7 Blood hematocrit (volume fraction) 31 % 40-54 Automated erythrocyte mean corpuscular volume 98 [foz_us] 80-99 Automated erythrocyte mean corpuscular hemoglobin (mass per erythrocyte) 33 pg 25-34 Automated erythrocyte mean corpuscular hemoglobin concentration measurement ( mass/volume) 34 g/dL 32-36 Automated erythrocyte distribution width ratio 12.4 % 10.0-14.5 Automated blood platelet count (count/volume) 487 10*3/uL 130-400 Automated blood platelet mean volume measurement 8.5 [foz_us] 7.4-10.4 Automated blood neutrophils/100 leukocytes 76 % 42-75 Automated blood lymphocytes/100 leukocytes 10 % 12-44 Blood monocytes/100 leukocytes 13 % 0-12 Automated blood eosinophils/100 leukocytes 0 % 0-10 Automated blood basophils/100 leukocytes 0 % 0-10 Blood neutrophils automated count (number/volume) 10.1 10*3 1.8-7.8 Blood lymphocytes automated count (number/volume) 1.4 10*3 1.0-4.0 Blood monocytes automated count (number/volume) 1.7 10*3 0.0-1.0 Automated eosinophil count 0.0 10*3/uL 0.0-0.3 Automated blood basophil count (count/volume) 0.0 10*3/uL 0.0-0.1 Whole blood basic metabolic panel - 07/31/17 05:00 Serum or plasma sodium measurement (moles/volume) 134 mmol/L 135-145 Serum or plasma potassium measurement (moles/volume) 4.3 mmol/L 3.6-5.0 Serum or plasma chloride measurement (moles/volume) 105 mmol/L 98-107 Carbon dioxide 17 mmol/L 21-32 Serum or plasma anion gap determination (moles/volume) 12 mmol/L 5-14 Serum or plasma urea nitrogen measurement (mass/volume) 20 mg/dL 7-18 Serum or plasma creatinine measurement (mass/volume) 0.81 mg/dL 0.60-1.30 Serum or plasma urea nitrogen/creatinine mass ratio 25 NRG Serum or plasma creatinine measurement with calculation of estimated glomerular filtration rate > NRG Serum or plasma glucose measurement (mass/volume) 84 mg/dL 70-105 Serum or plasma calcium measurement (mass/volume) 8.6 mg/dL 8.5-10.1 DILANTIN (PHENYTOIN) - 07/31/17 05:00 DILANTIN PHEN 3.4 % 10.0-20.0 Complete urinalysis with reflex to culture - 08/01/17 01:45 Urine color determination YELLOW NRG Urine clarity determination CLOUDY NRG Urine pH measurement by test strip 5 5-9 Specific gravity of urine by test strip 1.010 1.016- 1.022 Urine protein assay by test strip, semi-quantitative 2+ NEGATIVE Urine glucose detection by automated test strip NEGATIVE NEGATIVE Erythrocytes detection in urine sediment by light microscopy 5+ NEGATIVE Urine ketones detection by automated test strip NEGATIVE NEGATIVE Urine nitrite detection by test strip NEGATIVE NEGATIVE Urine total bilirubin detection by test strip NEGATIVE NEGATIVE Urine urobilinogen measurement by automated test strip (mass/volume) NORMAL NORMAL Urine leukocyte esterase detection by dipstick 3+ NEGATIVE Automated urine sediment erythrocyte count by microscopy (number/high power field) TNTC NRG Automated urine sediment leukocyte count by microscopy (number/high power field ) TNTC NRG Bacteria detection in urine sediment by light microscopy FEW NRG Crystals detection in urine sediment by light microscopy NONE NRG Casts detection in urine sediment by light microscopy NONE NRG Mucus detection in urine sediment by light microscopy LARGE NRG Complete urinalysis with reflex to culture YES NRG Bacterial urine culture - 08/01/17 01:45 Bacterial urine culture NG NRG Urine Legionella pneumophila antigen assay - 08/01/17 01:45 Urine Legionella pneumophila antigen assay Negative NRG Streptococcus pneumoniae antigen detection - 08/01/17 01:45 Streptococcus pneumoniae antigen detection Negative NRG Encounters ACCT No. Visit Date/Time Discharge Status Pt. Type Provider Facility Loc./Unit Complaint [id number] 07/30/2017 12:15:00 08/05/2017 12:14:00 DIS Inpatient JARRETT HARMON, KEV [facility] 4TH LLL PNEUMONIA,SEPSIS [id number] 09/09/2016 12:39:00 09/09/2016 23:59:59 CLS Outpatient Jamie PALENCIA MD [facility] CATH AFIB,HTN [id number] 08/12/2016 13:06:00 08/12/2016 15:55:00 DIS Outpatient Jamie PALENCIA MD [facility] CATH A-FIB,HTN,CHF [id number] 07/29/2016 07:13:00 07/31/2016 13:50:00 DIS Inpatient Jamie PALENCIA MD [facility] ICU ARRHYTHMIA [id number] 07/15/2016 11:23:00 07/15/2016 23:59:59 CLS Outpatient DEIDRA MALONE [facility] CARD AFIB,CAD,CHF ,HLP [id number] 07/03/2016 10:34:00 07/03/2016 23:59:59 CLS Outpatient REBA LESTER MD [facility] LAB SEIZURE DISORDER [id number] 07/03/2016 06:51:00 07/03/2016 23:59:59 CLS Outpatient MELISSA ADAMS MD [facility] LAB HYPERLIPIDEMIA,HTN,CAD [id number] 06/14/2015 14:17:00 06/14/2015 23:59:59 CLS Outpatient DEIDRA MALONE [facility] CARD AFIB,CAD, HTN [id number] 01/18/2015 07:29:00 01/25/2015 13:53:00 DIS Inpatient REBA LESTER MD [facility] CSD A-FIB WITH RVR [id number] 12/17/2016 06:49:00 Document Registration [id number] 06/14/2015 07:01:00 Document Registration [id number] 12/22/2011 19:09:00 Document Registration [id number] 12/06/2011 09:30:00 Document Registration [id number] 10/16/2009 09:08:00 Document Registration
[2017-10-19] MEDS ORDERED: TETANUS,DIPTH,PERTUSS P/F (BOOSTRIX) 0.5 ML VIAL IM STA (18:03)
[2017-10-19] MEDS ORDERED: LIDOCAINE 1% INJ 50 ML (XYLOCAINE) VIAL ONE (18:03)
[2017-10-19] MEDS ORDERED: LIDOCAINE 1% INJ 20 ML 20 ML VIAL INJ ONE (18:15)
--- NOTE | 2017-10-19 18:33 | ED Fall/Injury ---
General Chief Complaint: Laceration Stated Complaint: FELL,CHIN LAC Nursing Triage Note: Fell while going into house, fell on edge of step. no loc. bleeding controlled. laceration to chin History of Present Illness Date Seen by Provider: Oct 19, 2017 Time Seen by Provider: 18:00 Initial Comments 67-year-old male presents for laceration to his chin. He reports he was walking into his home when he tripped on concrete stairs falling and injuring his chin. He denies head injury or loss of consciousness. He is on Eliquis. He had a CVA at age 11, secondary to endocarditis. He has weakness on his left side and wears an AFO on his left foot. Occurred: just prior to arrival Injuries/Pain Location: head Context: tripped Loss of Consciousness: no loss of consciousness Associated Symptoms (Fall): Denies Symptoms Allergies and Home Medications Allergies Coded Allergies: Penicillins (Unverified Allergy, Unknown, 10/19/17) Home Medications Acetaminophen/Chlorpheniramine 1 Each Tablet, 2 TAB PO EVERY 4-6 HOURS PRN for COUGH, (Reported) Amitriptyline HCl 25 Mg Tablet, 25 MG PO HS, (Reported) Apixaban 5 Mg Tablet, 5 MG PO BID, (Reported) Ascorbic Acid 500 Mg Tablet, 500 MG PO DAILY, (Reported) Buspirone HCl 15 Mg Tablet, 15 MG PO BID, (Reported) Cholecalciferol (Vitamin D3) 1,000 Unit Capsule, 2,000 UNIT PO DAILY, (Reported) TAKES 2 (1,000 UNIT) CAPSULES Diltiazem HCl 360 Mg Capsule.er, 360 MG PO DAILY, (Reported) Enalapril Maleate 2.5 Mg Tablet, 2.5 MG PO DAILY, (Reported) Fluticasone Propionate 16 Gm Loraine.susp, 2 SPRAYS NS HS, (Reported) Fluticasone/Salmeterol 1 Each Blst.w.dev, 1 PUFF IH BID, (Reported) Furosemide 40 Mg Tablet, 40 MG PO DAILY, (Reported) Guaifenesin 600 Mg Tab.er.12h, 600 MG PO BID, (Reported) Guaifenesin/Dextromethorphan 118 Ml Liquid, 10 ML PO Q4H PRN for COUGH, ( Reported) Ibandronate Sodium 150 Mg Tablet, 150 MG PO MONTHLY ON THE , (Reported) Montelukast Sodium 10 Mg Tablet, 10 MG PO HS, (Reported) Multivitamin with Minerals 1 Each Tablet, 1 TAB PO DAILY, (Reported) Ellis 3 Polyunsat Fatty Acids 1,000 Mg Cap, 1,000 MG PO DAILY, (Reported) Omeprazole 20 Mg Capsule.dr, 20 MG PO DAILY, (Reported) Phenytoin Sodium Extended 100 Mg Capsule, 200 MG PO HS, (Reported) LAST FILLED #360 2015 Potassium Chloride 20 Meq Tab.er.prt, 20 MEQ PO DAILY, (Reported) Prednisone 5 Mg Tablet, 5 MG PO DAILY, (Reported) Sodium Chloride 30 Ml Loraine, 1-2 SPRAYS NS TID PRN for DRY NOSE, (Reported) Sotalol HCl 80 Mg Tablet, 80-160 MG PO BID, (Reported) TAKE 160 MG (2 TABS) IN THE MORNING TAKE 80MG (1 TAB) IN THE EVENING Tiotropium [place] 1 Inh Aerp, 1 CAP IH DAILY, (Reported) Patient Home Medication List Home Medication List Reviewed: Yes Review of Systems Constitutional: no symptoms reported, see HPI Skin: see HPI, other (3 cm laceration to chin with minimal bleeding.) All Other Systems Reviewed Negative Unless Noted: Yes Past Omaaiyg-Rtvtmb-Kpkebp Hx Patient Social History Alcohol Use: Denies Use Recreational Drug Use: No Smoking Status: Former Smoker Type Used: Cigarettes Former Smoker, Quit: Jul 30, 1999 Recent Foreign Travel: No Contact w/Someone Who Travel: No Recent Infectious Disease Expo: No Recent Hopitalizations: No Physical Abuse: No Sexual Abuse: No Mistreated: No Fear: No Immunizations Up To Date Tetanus Booster (TDap): Unknown PED Vaccines UTD: No Date of Pneumonia Vaccine: Apr 28, 2016 Date of Influenza Vaccine: Apr 07, 2017 Seasonal Allergies Seasonal Allergies: Yes Past Medical History Surgeries: Yes (Heart surgery at 10 years of age) Cardiac Respiratory: Yes Asthma Currently Using CPAP: No Currently Using BIPAP: No Cardiac: Yes (open heart sx at 14 years after endocarditis) Atrial Fibrillation, Hypertension, Valvular Heart Disease Neurological: Yes (age 11- from endocarditis) Stroke Reproductive Disorders: No Sexually Transmitted Disease: No HIV/AIDS: No Genitourinary: No Gastrointestinal: No Musculoskeletal: Yes Arthritis, Foot Drop, Contracture Endocrine: No HEENT: No Loss of Vision: Denies Hearing Impairment: Denies Cancer: No Psychosocial: Yes Anxiety Nursing Suicide Risk Score: 0 Integumentary: No Blood Disorders: No Adverse Reaction/Blood Tranf: No Family Medical History Reviewed Nursing Family Hx Alcoholism G8 BROTHER, Onset:Unknown Arthritis 19 MOTHER, Onset:Unknown Cardiovascular disease G8 SISTER, Onset:60 years & older 19 FATHER, Onset:60 years & older Completed stroke G8 BROTHER, Onset:50's - 60 FH: breast cancer 19 MOTHER, Onset:60 years & older Hypercholesterolemia 19 FATHER, Onset:Unknown Myocardial infarction 19 FATHER, Onset:60 years & older Seizure disorder G8 BROTHER, Onset:50's - 60 Physical Exam Vital Signs Vital Signs - First Documented 10/19/17 17:54 Temp 98.0 Pulse 90 Resp 18 B/P (MAP) 136/81 (99) Pulse Ox 99 Capillary Refill : Less Than 3 Seconds General Appearance: WD/WN, no apparent distress HEENT: PERRL/EOMI, normal ENT inspection, TMs normal, pharynx normal, other ( no loose teeth) Neck: non-tender, full range of motion, supple, normal inspection Cardiovascular: normal peripheral pulses, regular rate, rhythm Respiratory: chest non-tender, lungs clear, normal breath sounds Gastrointestinal: normal bowel sounds, non tender, soft Neurologic/Psychiatric: alert, normal mood/affect, oriented x 3 Skin: normal color, warm/dry, other (3 cm superficial laceration to chin, patient has full thick mike) Procedures/Interventions Wound Location: Face (chin) Wound Length (cm): 3 Wound's Depth, Shape: superficial Wound Explored: clean Irrigated w/ Saline (ccs): 300 Betadine Prep?: Yes Anesthesia: 1% Lidocaine Volume Anesthetic (ccs): 4 Suture: Ethlion Suture Size: 5-0 Number of Sutures: 4 Sterile Dressing Applied?: No Progress Patient tolerated procedure well. No active bleeding upon completion. With Mike , unable to secure a dressing. Sterile 4 x 4's given to patient to apply compression if bleeding begins. Progress/Results/Core Measures My Orders Orders - ESTRELLA MANZANARES Dipht,Pertodette(Acell),Tet Adult (Boostrix (10/19/17 18:03) Lidocaine 1% Inj 20 Ml (Xylocaine 1% Inj (10/19/17 18:15) Lidocaine 1% Inj 50 Ml (Xylocaine 1% Inj (10/19/17 18:03) Medications Given in ED Current Medications Medications Dose Ordered Sig/Josiah Route Start Time Stop Time Status Last Admin Dose Admin Lidocaine HCl 50 ml STK-MED ONCE .ROUTE 10/19/17 18:03 10/19/17 18:08 DC 10/19/17 18:08 50 ML Vital Signs/I&O 10/19/17 10/19/17 17:54 18:37 Temp 98.0 98.0 Pulse 90 88 Resp 18 18 B/P (MAP) 136/81 (99) 130/71 (99) Pulse Ox 99 99 Blood Pressure Mean: 99 Progress Note : Time: 18:00 Progress Note Initial evaluation completed, due to the patient's mike it would be difficult to glue this laceration. Discussed with patient and he wished to proceed with sutures. Tetanus booster given. 1829 discharge instructions and return precautions reviewed with patient, all questions answered. Departure Impression Primary Impression: Chin laceration Qualified Codes: S01.81XA - Laceration without foreign body of other part of head, initial encounter Additional Impression: Fall Qualified Codes: W19.XXXA - Unspecified fall, initial encounter Disposition: HOME, SELF-CARE Condition: Improved Departure-Patient Inst. Decision time for Depature: 18:30 Referrals: REBA LESTER MD (PCP/Family) Primary Care Physician Patient Instructions: Laceration Repair With Stitches (DC) Add. Discharge Instructions: Shower as normal, clean wound with peroxide 2-3 times daily. Return to Emergency Dept in 5 days for suture removal. Return to emergency department for any discolored drainage, redness, swelling, or increased pain. Follow-up with your primary care provider as needed. All discharge instructions reviewed with patient and/or family. Voiced understanding. Copy Copies To 1: REBA LESTER MD, AMY ARNP Oct 19, 2017 18:33
[2017-10-19 18:37] VITALS: BP 130/71
== END 2017-10-19 18:37 | disposition home or self-care (01) ==
LOC: EDUNIT# 17:50 → ER 17:51
DX: S01.81XA Laceration without foreign body of other part of head, initial encounter (principal); J45.909 Unspecified asthma, uncomplicated; I48.91 Unspecified atrial fibrillation; I10 Essential (primary) hypertension; F41.9 Anxiety disorder, unspecified; Z80.3 Family history of malignant neoplasm of breast; Z82.49 Family history of ischemic heart disease and other diseases of the circulatory system; Z23 Encounter for immunization; Z88.0 Allergy status to penicillin; Z79.01 Long term (current) use of anticoagulants; Z79.52 Long term (current) use of systemic steroids; Z86.73 Personal history of transient ischemic attack (TIA), and cerebral infarction without residual deficits; Z87.891 Personal history of nicotine dependence; W01.0XXA Fall on same level from slipping, tripping and stumbling without subsequent striking against object, initial encounter; Y92.009 Unspecified place in unspecified non-institutional (private) residence as the place of occurrence of the external cause
CPT/HCPCS: 12013; 90471; 90715

== ENCOUNTER 2017-10-24 12:39 | Emergency (ER) | payer MEDICARE ==
[~2017-10-24] VITALS: Ht 160 cm; Wt 79.2 kg
[2017-10-24 12:56] VITALS: BP 120/7
== END 2017-10-24 12:57 | disposition home or self-care (01) ==
LOC: EDUNIT# 12:39 → ER 12:42
DX: S01.81XD Laceration without foreign body of other part of head, subsequent encounter (principal); X58.XXXD Exposure to other specified factors, subsequent encounter

== ENCOUNTER → 2018-01-02 | Outpatient (CLI) | payer MEDICARE ==
[2018-01-02 07:45] LABS: ALANINE AMINOTRANSFERASE 13 U/L (0-55); ALKALINE PHOSPHATASE 106 U/L (40-136); BILIRUBIN,TOTAL 0.4 MG/DL (0.1-1.0); BUN/CREATININE RATIO 11; CALCIUM 9.7 MG/DL (8.5-10.1); CARBON DIOXIDE 28 MMOL/L (21-32); CHLORIDE 98 MMOL/L (98-107); CHOLESTEROL 161 MG/DL (< 200); GFR ESTIMATED > 60; GLUCOSE 90 MG/DL (70-105); HDL CHOLESTEROL 46 MG/DL (40-60); POTASSIUM 3.9 MMOL/L (3.6-5.0); SODIUM 135 MMOL/L (135-145); TOTAL PROTEIN 6.9 GM/DL (6.4-8.2); TRIGLYCERIDES 76 MG/DL (<150); VLDL CHOLESTEROL 15 MG/DL (5-40)
== END ==
LOC: LAB 07:06
PROVIDERS: ATTEND Physician Assistant
DX: I10 Essential (primary) hypertension (principal); I25.10 Atherosclerotic heart disease of native coronary artery without angina pectoris; E78.2 Mixed hyperlipidemia
CPT/HCPCS: 36415; 80053; 80061

== ENCOUNTER → 2018-06-04 | Outpatient (CLI) | payer MEDICARE, OTHER | LOC: CARD 12:25 | PROVIDERS: ATTEND Physician Assistant | DX: I48.0 Paroxysmal atrial fibrillation (principal); I25.10 Atherosclerotic heart disease of native coronary artery without angina pectoris; I11.0 Hypertensive heart disease with heart failure; I50.22 Chronic systolic (congestive) heart failure; E78.2 Mixed hyperlipidemia; I08.3 Combined rheumatic disorders of mitral, aortic and tricuspid valves | CPT/HCPCS: 93306 ==

== ENCOUNTER → 2018-06-10 | Outpatient (CLI) | payer MEDICARE, OTHER ==
[~2018-06-10] VITALS: Ht 160 cm; Wt 76.7 kg
[~2018-06-10] MED LIST changes: +CATHETER FLUSH 10 ML SYR IV PRN; +REGADENOSON 0.4 MG/5 ML SYR (LEXISCAN) IV ONE
--- NOTE | 2018-06-10 15:49 | STRESS TEST ---
DATE OF SERVICE: 06/10/2018 LEXISCAN MYOVIEW STRESS TEST REPORT REFERRING PHYSICIAN: Dr. Bailey. Baseline heart rate is 87. Baseline blood pressure 153/93. Baseline EKG is sinus rhythm with right bundle branch block. In summary, the patient was injected with 10.57 mCi of technetium-99 Myoview and the resting images were obtained. Then, the patient received 0.4 mg of Lexiscan followed by 30.3 mCi of technetium-99 Myoview. Throughout the test, there were no EKG changes. The resting and stress images were reviewed and compared in the short axis, horizontal long axis, and vertical long axis views. Review of the images showed diaphragmatic attenuation with typical male pattern. No significant ischemia or infarction. SSS is 2, SDS is 0, TID value 0.85. On the gated images, the left ventricle appeared to be in normal size with normal contractility. Calculated ejection fraction 65%. CONCLUSION: 1. The patient tolerated Lexiscan well. 2. Typical male pattern with no significant ischemia or infarction on SPECT images. 3. Normal left ventricular size with normal contractility. Calculated ejection fraction 65%. Job ID: [id number] DocumentID: [id number] Dictated Date: 06/10/2018 15:27:35 Airline Attendant Date: 06/10/2018 15:49:18 Dictated By: MELISSA ADAMS MD
== END ==
LOC: CARD 07:26
PROVIDERS: ATTEND Physician Assistant
DX: I48.0 Paroxysmal atrial fibrillation (principal); I25.10 Atherosclerotic heart disease of native coronary artery without angina pectoris; I11.0 Hypertensive heart disease with heart failure; I50.22 Chronic systolic (congestive) heart failure; E78.2 Mixed hyperlipidemia
CPT/HCPCS: 78452; 93017

== ENCOUNTER → 2019-01-28 | Outpatient (CLI) | payer MEDICARE ==
[~2019-01-28] MED LIST changes: -CATHETER FLUSH 10 ML SYR IV PRN; -REGADENOSON 0.4 MG/5 ML SYR (LEXISCAN) IV ONE; -SOTA80TA PO; +STL80T PO
[2019-01-28 08:07] LABS: ALBUMIN 4.1 GM/DL (3.2-4.5); BILIRUBIN,TOTAL 0.3 MG/DL (0.1-1.0); CALCIUM 9.9 MG/DL (8.5-10.1); CREATININE SERUM 1.2 MG/DL (0.60-1.30); POTASSIUM 4.2 MMOL/L (3.6-5.0)
== END ==
LOC: LAB 07:23
PROVIDERS: ATTEND Internal Medicine Cardiovascular Disease
DX: I25.10 Atherosclerotic heart disease of native coronary artery without angina pectoris (principal); E78.2 Mixed hyperlipidemia; I10 Essential (primary) hypertension
CPT/HCPCS: 36415; 80053; 80061

== ENCOUNTER 2019-06-15 08:15 | Emergency (ER) | payer MEDICARE ==
[~2019-06-15] VITALS: Ht 160 cm; Wt 75.0 kg
[~2019-06-15 08:15] MED LIST changes: +OMEP20CA13 PO
--- NOTE | 2019-06-15 08:15 | NUR ---
SEE LIST FOR CURRENT MEDS
[2019-06-15 08:47] LABS: BASOPHILS # (AUTO) 0.1 10^3/uL (0.0-0.1); BASOPHILS % (AUTO) 1 % (0-10); EOSINOPHILS # (AUTO) 0.2 10^3/uL (0.0-0.3); EOSINOPHILS % (AUTO) 2 % (0-10); HEMATOCRIT 37 % (40-54); HEMOGLOBIN 12.1 G/DL (13.3-17.7); LYMPHOCYTES # (AUTO) 1.4 X 10^3 (1.0-4.0); LYMPHOCYTES % (AUTO) 18 % (12-44); MEAN CORPUSCULAR HEMOGLOBIN 31 PG (25-34); MEAN CORPUSCULAR HGB CONC 33 G/DL (32-36); MEAN CORPUSCULAR VOLUME 96 FL (80-99); MEAN PLATELET VOLUME 7.8 FL (7.4-10.4); MONOCYTES # (AUTO) 0.6 X 10^3 (0.0-1.0); MONOCYTES % (AUTO) 8 % (0-12); NEUTROPHILS # (AUTO) 5.2 X 10^3 (1.8-7.8); NEUTROPHILS % (AUTO) 70 % (42-75); PLATELET COUNT 439 10^3/uL (130-400); RED CELL DISTRIBUTION WIDTH 12.6 % (10.0-14.5); WHITE BLOOD COUNT 7.4 10^3/uL (4.3-11.0)
[2019-06-15 08:54] LABS: PROTHROMBIN TIME PATIENT 13.9 SEC (12.2-14.7)
[2019-06-15 09:04] LABS: ALANINE AMINOTRANSFERASE 13 U/L (0-55); ALBUMIN 4.2 GM/DL (3.2-4.5); ALKALINE PHOSPHATASE 91 U/L (40-136); BILIRUBIN,TOTAL 0.4 MG/DL (0.1-1.0); BUN/CREATININE RATIO 13; CALCIUM 9.7 MG/DL (8.5-10.1); CARBON DIOXIDE 28 MMOL/L (21-32); CHLORIDE 97 MMOL/L (98-107); CREATINE KINASE 33 U/L (30-200); CREATININE SERUM 1.14 MG/DL (0.60-1.30); GFR ESTIMATED > 60; GLUCOSE 100 MG/DL (70-105); MAGNESIUM 2.1 MG/DL (1.6-2.4); POTASSIUM 4.2 MMOL/L (3.6-5.0); SODIUM 135 MMOL/L (135-145); TOTAL PROTEIN 7.3 GM/DL (6.4-8.2)
--- NOTE | 2019-06-15 09:16 | Diagnostic Imaging Report ---
INDICATION: Persistent confusion and altered mental status. TECHNIQUE/COMPARISON: A noncontrast brain CT was performed and compared to 12/22/2011. TECHNIQUE: Multiple contiguous axial images were obtained through the brain without the use of intravenous contrast. Auto Exposure Controls were utilized during the CT exam to meet ALARA standards for radiation dose reduction. FINDINGS: There is an old infarct in the left MCA territory involving the posterior frontal cortex and subinsular region, unchanged in distribution compared to 12/22/2011. There is no acute hemorrhage, mass effect, or midline shift. The ventricles are unchanged compared to the prior study with some ex vacuo dilatation of the left lateral ventricle. There is no new abnormality compared to the prior study. The calvarial windows are unremarkable. IMPRESSION: Old left MCA territory infarct appearing similar to 12/22/2011. No acute hemorrhage, mass effect, or new abnormality. Dictated by: Dictated on workstation # [id number]
[2019-06-15 09:23] LABS: CREATINE KINASE MB 0.6 NG/ML (<6.6); TSH (THYROID ANALYZER) 1.57 UIU/ML (0.35-4.94)
[2019-06-15] MEDS ORDERED: IOHEXOL 350 MG/ML 100 ML (OMNIPAQUE 350) VIAL IV ONE (09:45)
[2019-06-15] MEDS ORDERED: NS 100 ML (IVPB) BAG IV ONE (09:45)
[2019-06-15] MEDS ORDERED: HOLD METFORMIN - RECEIVED CONTRAST 20 ML VIAL IV SCH (09:45)
--- NOTE | 2019-06-15 09:45 | Diagnostic Imaging Report ---
EXAMINATION: Portable erect AP chest at 0910 hours. INDICATION: Confusion FINDINGS: The heart size is within normal limits and stable when compared to 07/30/2017. The patient's exam did note bilateral pneumonia/atelectasis with greater involvement of the left lung base. On this study the lungs are generally clear. There is no evidence for failure, pneumonia or for a pleural effusion. The elevated right hemidiaphragm seen previously is again evident and no different. The mediastinum is not widened. The osseous structures are intact. IMPRESSION: There is no evidence for active disease. Dictated by: Dictated on workstation # [id number]
--- NOTE | 2019-06-15 11:16 | Diagnostic Imaging Report ---
PROCEDURE: CT angiography of the head and CT angiography of the neck with and without contrast. TECHNIQUE: Contiguous noncontrast images were obtained from the skull base through the vertex. After intravenous contrast administration, helical CT angiography of the neck was performed. Source data was reformatted into 3D MIP projections. Delayed post contrast acquisition was also obtained. Auto Exposure Controls were utilized during the CT exam to meet ALARA standards for radiation dose reduction. INDICATION: Confusion x 24 hours. FINDINGS: The CT head exam performed prior to this study failed to show any sign of an acute intracranial abnormality. There was a sizable area of encephalomalacia in the left frontal temporal lobe. On this exam, there is no defect within the intracranial circulation to suggest a thrombus. There is no sign of an aneurysm of the [place] either. There is no hemodynamically significant stenosis of the common or internal carotid arteries. Both vertebral arteries are opacified and the left vertebral artery is slightly dominant. There is no mass or adenopathy involving the neck. The lung apices are clear. There is complete opacification of the right maxillary antrum by mucosal thickening and fluid. There is fairly severe degenerative disc and bony disease at every level from C3-C4 to C7-T1. There also appears to be spinal stenosis at multiple levels of the cervical spine. If further imaging is desired, then MRI would be recommended. IMPRESSION: 1. There is no evidence for a large vessel occlusion of the intracranial circulation. There is no sign of an aneurysm either. If further imaging is desired, then MRI would be recommended. 2. There is no evidence for a hemodynamically significant stenosis of either carotid system. 3. There is degenerative disc and bony disease throughout most of the cervical spine. 4. There is severe right maxillary sinusitis. 5. These results were discussed with Dr. Dunlap. Dictated by: Dictated on workstation # [id number]
[2019-06-15 11:21] LABS: BILIRUBIN,URINE NEGATIVE (NEGATIVE); CLARITY,URINE CLEAR; COLOR,URINE YELLOW; GLUCOSE, URINE (UA) NEGATIVE (NEGATIVE); KETONES,URINE NEGATIVE (NEGATIVE); LEUKOCYTE ESTERASE ,URINE NEGATIVE (NEGATIVE); NITRITE,URINE NEGATIVE (NEGATIVE); PROTEIN,URINE NEGATIVE (NEGATIVE)
[2019-06-15 11:40] LABS: BACTERIA,URINE NEGATIVE /HPF; SQUAMOUS EPITHELIAL CELL,UR RARE /HPF
[2019-06-15 11:42] LABS: AMPHETAMINE SCREEN, URINE NEGATIVE (NEGATIVE); BARBITURATE SCREEN URINE POSITIVE (NEGATIVE); BENZODIAZEPINES SCREEN URINE NEGATIVE (NEGATIVE); CANNABINOID SCREEN, URINE NEGATIVE (NEGATIVE); COCAINE SCREEN URINE NEGATIVE (NEGATIVE); METHADONE STAT NEGATIVE (NEGATIVE); METHAMPHETAMINE SCREEN URINE S NEGATIVE (NEGATIVE); OPIATE SCREEN URINE NEGATIVE (NEGATIVE); OXYCODONE STAT NEGATIVE (NEGATIVE); PROPOXYPHENE STAT NEGATIVE (NEGATIVE); TRICYCLIC ANTIDEPRESSANTS SCRE POSITIVE (NEGATIVE)
--- NOTE | 2019-06-15 12:08 | ED General ---
General Chief Complaint: General Problems/Pain Stated Complaint: CONFUSION Nursing Triage Note: PT ARRIVED PER EMS, PT CO OF CONFUSION AT NITE, NOT ABLE TO RECALL THINGS AT WELL DURING NITE. PT IS A AND O AT THIS X. PT HAS SEIZURE HX AND STROKE HX. PT LIVES ALONE Nursing Sepsis Screen: No Definite Risk Source of Information: Patient History of Present Illness Date Seen by Provider: Jun 15, 2019 Time Seen by Provider: 08:16 Initial Comments PT ARRIVES VIA EMS FROM HOME PT STATES FOR THE LAST FEW DAYS, HE HAS BEEN FORGETFUL AND A LITTLE CONFUSED IN THE AFTERNOONS AND EVENINGS STATES HE IS FINE ALL DAY AND IS FINE NOW--SYMPTOMS DON'T START UNTIL LATER IN THE DAY PT HAS NO OTHER COMPLAINTS PT THINKS THAT HE MIGHT HAVE HAD THESE SYMPTOMS BEFORE WHEN HIS DILANTIN LEVEL HAS BEEN LOW, BUT HAS NOT HAD IT CHECKED RECENTLY. DENIES MISSED DOSES OF MEDICATIONS NO CHEST PAIN NO SHORTNESS OF BREATH NO HEADACHE NO VISION CHANGES NO DIZZINESS NO PALPITATIONS NO NAUSEA/VOMITING/DIARRHEA NO URINARY SYMPTOMS NO FEVER OR RECENT ILLNESS DENIES ANY INJURIES, FALLS, ETC. 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 STATES HE HAS NOT HAD A SEIZURE IN OVER 30 YEARS PT DENIES HAVING ANY NEW STROKE SYMPTOMS AND NO KNOWN SEIZURES NO NEW PARESTHESIAS OR MOTOR DEFICITS PT ALSO HAS HISTORY OF ATRIAL FIBRILLATION AND TAKES ELIQUIS PT LIVES ALONE. PCP: DR. LESTER [place] ROOM ATTENDANT: DR. ADAMS, HAS ALSO SEEN DR. PALENCIA DOES NOT SEE A NEUROLOGIST Allergies and Home Medications Allergies Coded Allergies: Penicillins (Unverified Allergy, Unknown, 10/19/17) Home Medications Acetaminophen/Chlorpheniramine 1 Each Tablet, 2 TAB PO EVERY 4-6 HOURS PRN for COUGH, (Reported) Amitriptyline HCl 25 Mg Tablet, 25 MG PO HS, (Reported) Apixaban 5 Mg Tablet, 5 MG PO BID, (Reported) Ascorbic Acid 500 Mg Tablet, 500 MG PO DAILY, (Reported) Buspirone HCl 15 Mg Tablet, 15 MG PO BID, (Reported) Cholecalciferol (Vitamin D3) 1,000 Unit Capsule, 2,000 UNIT PO DAILY, (Reported) TAKES 2 (1,000 UNIT) CAPSULES Diltiazem HCl 360 Mg Capsule.er, 360 MG PO DAILY, (Reported) Enalapril Maleate 2.5 Mg Tablet, 2.5 MG PO DAILY, (Reported) Fluticasone Propionate 16 Gm [place].susp, 2 SPRAYS NS HS, (Reported) Fluticasone/Salmeterol 1 Each Blst.w.dev, 1 PUFF IH BID, (Reported) Furosemide 40 Mg Tablet, 40 MG PO DAILY, (Reported) Guaifenesin 600 Mg Tab.er.12h, 600 MG PO BID, (Reported) Guaifenesin/Dextromethorphan 118 Ml Liquid, 10 ML PO Q4H PRN for COUGH, (Reported) Ibandronate Sodium 150 Mg Tablet, 150 MG PO MONTHLY ON THE , (Reported) Montelukast Sodium 10 Mg Tablet, 10 MG PO HS, (Reported) Multivitamin with Minerals 1 Each Tablet, 1 TAB PO DAILY, (Reported) [place] 3 Polyunsat Fatty Acids 1,000 Mg Cap, 1,000 MG PO DAILY, (Reported) Omeprazole 20 Mg Capsule.dr, 20 MG PO DAILY, (Reported) Phenytoin Sodium Extended 100 Mg Capsule, 200 MG PO HS, (Reported) LAST FILLED #360 2015 Potassium Chloride 20 Meq Tab.er.prt, 20 MEQ PO DAILY, (Reported) Prednisone 5 Mg Tablet, 5 MG PO DAILY, (Reported) Sodium Chloride 30 Ml [place], 1-2 SPRAYS NS TID PRN for DRY NOSE, (Reported) Sotalol HCl 80 Mg Tablet, 80-160 MG PO BID, (Reported) TAKE 160 MG (2 TABS) IN THE MORNING TAKE 80MG (1 TAB) IN THE EVENING Tiotropium [place] 1 Inh Aerp, 1 CAP IH DAILY, (Reported) Patient Home Medication List Home Medication List Reviewed: Yes Review of Systems Review of Systems Constitutional: no symptoms reported; No chills, No diaphoresis, No dizziness, No malaise, No weakness EENTM: no symptoms reported; No blurred vision, No double vision Respiratory: no symptoms reported; No cough, No short of breath Cardiovascular: no symptoms reported; No chest pain, No edema, No palpitations, No syncope Gastrointestinal: no symptoms reported; No abdominal pain, No diarrhea, No loss of appetite, No nausea, No vomiting Genitourinary: no symptoms reported Musculoskeletal: no symptoms reported Skin: no symptoms reported Psychiatric/Neurological: See HPI; Denies Headache; Pre-Existing Deficit Past Mevtdlu-Nrcqmi-Zinqmo Hx Patient Social History Alcohol Use: Denies Use Recreational Drug Use: No Smoking Status: Former Smoker Type Used: Cigarettes Former Smoker, Quit: Jul 30, 1999 Recent Foreign Travel: No Contact w/Someone Who Travel: No Recent Infectious Disease Expo: No Recent Hopitalizations: No Physical Abuse: No Sexual Abuse: No Immunizations Up To Date Tetanus Booster (TDap): Unknown PED Vaccines UTD: No Date of Pneumonia Vaccine: Apr 28, 2016 Date of Influenza Vaccine: Apr 07, 2017 Seasonal Allergies Seasonal Allergies: Yes Past Medical History Surgeries: Yes (Heart surgery at 10 OR 14 years of age) Cardiac Respiratory: Yes Asthma Currently Using CPAP: No Currently Using BIPAP: No Cardiac: Yes (open heart sx at 10 OR 14 years after endocarditis) Atrial Fibrillation, Congenital Heart Disease, Endocarditis, Hypertension, Valvular Heart Disease Neurological: Yes (CVA AT age 11- from endocarditis; LEFT FACIAL DROOP AND RIGHT PARTIAL HEMIPLEGIA WITH RIGHT HAND CONTRACTURE AND RIGHT FOOT DROP--WEARS A BRACE ON LEFT FOOT/LOWER LEG. ) Stroke Reproductive Disorders: No Sexually Transmitted Disease: No HIV/AIDS: No Genitourinary: No Gastrointestinal: No Musculoskeletal: Yes (RIGHT PARTIAL HEMIPLEGIA DUE TO PRIOR CVA) Arthritis, Foot Drop, Contracture Endocrine: No HEENT: No Loss of Vision: Denies Hearing Impairment: Denies Cancer: No Psychosocial: Yes Anxiety Integumentary: No Blood Disorders: No Adverse Reaction/Blood Tranf: No Family Medical History Alcoholism G8 BROTHER, Onset:Unknown Arthritis 19 MOTHER, Onset:Unknown Cardiovascular disease G8 SISTER, Onset:60 years & older 19 FATHER, Onset:60 years & older Completed stroke G8 BROTHER, Onset:50's - 60 FH: breast cancer 19 MOTHER, Onset:60 years & older Hypercholesterolemia 19 FATHER, Onset:Unknown Myocardial infarction 19 FATHER, Onset:60 years & older Seizure disorder G8 BROTHER, Onset:50's - 60 Physical Exam Vital Signs Vital Signs - First Documented 06/15/19 08:15 Temp 36.7 Pulse 88 Resp 21 B/P (MAP) 110/71 (84) Pulse Ox 95 Capillary Refill : Less Than 3 Seconds Height, Weight, BMI Height: 5'3.00" Weight: 169lbs. 0.0oz. [id number]; 29.00 BMI Method:Stated General Appearance: No Apparent Distress, WD/WN HEENT: PERRL/EOMI Neck: Full Range of Motion, Normal Inspection, Non Tender, Supple; No Carotid Bruit, No JVD Respiratory: Normal Breath Sounds, No Accessory Muscle Use, No Respiratory Distress Cardiovascular: Regular Rate, Rhythm, No Edema, No JVD, Normal Peripheral Pulses, Systolic Murmur (?FAINT? ) Gastrointestinal: Non Tender, Soft Back: No CVA Tenderness Extremity: Normal Capillary Refill, Non Tender, Pedal Edema (TRACE BILATERALLY), Other (RIGHT PARTIAL HEMIPLEGIA, WITH SIGNIFICANT CONTRACTURE OF RIGHT HAND, RIGHT FOOT AND LOWER LEG IN BRACE. ) Neurologic/Psychiatric: Alert, Oriented x3, Normal Mood/Affect, Other (RIGHT SIDED PARTIAL HEMIPLEGIA, AND MILD LEFT FACIAL DROOP--FROM PRIOR CVA) Skin: Normal Color, Warm/Dry Procedures/Interventions Suture Size: 5-0 Progress/Results/Core Measures Suspected Sepsis Recent Fever Within 48 Hours: No Infection Criteria Present: None New/Unexplained Altered Menta: No Sepsis Screen: No Definite Risk SIRS Temperature: Pulse: 88 Respiratory Rate: 21 Laboratory Tests 06/15/19 08:25: White Blood Count 7.4 Blood Pressure 110 /71 Mean: 84 Laboratory Tests 06/15/19 08:25: Creatinine 1.14, INR Comment 1.0, Platelet Count 439H, Total Bilirubin 0.4 Results/Orders Lab Results Laboratory Tests Test 06/15/19 08:25 06/15/19 11:12 Range/Units White Blood Count 7.4 4.3-11.0 10^3/uL Red Blood Count 3.85 L 4.35-5.85 10^6/uL Hemoglobin 12.1 L 13.3-17.7 G/DL Hematocrit 37 L 40-54 % Mean Corpuscular Volume 96 80-99 FL Mean Corpuscular Hemoglobin 31 25-34 PG Mean Corpuscular Hemoglobin Concent 33 32-36 G/DL Red Cell Distribution Width 12.6 10.0-14.5 % Platelet Count 439 H 130-400 10^3/uL Mean Platelet Volume 7.8 7.4-10.4 FL Neutrophils (%) (Auto) 70 42-75 % Lymphocytes (%) (Auto) 18 12-44 % Monocytes (%) (Auto) 8 0-12 % Eosinophils (%) (Auto) 2 0-10 % Basophils (%) (Auto) 1 0-10 % Neutrophils # (Auto) 5.2 1.8-7.8 X 10^3 Lymphocytes # (Auto) 1.4 1.0-4.0 X 10^3 Monocytes # (Auto) 0.6 0.0-1.0 X 10^3 Eosinophils # (Auto) 0.2 0.0-0.3 10^3/uL Basophils # (Auto) 0.1 0.0-0.1 10^3/uL Prothrombin Time 13.9 12.2-14.7 SEC INR Comment 1.0 0.8-1.4 Activated Partial Thromboplast Time 37 H 24-35 SEC Sodium Level 135 135-145 MMOL/L Potassium Level 4.2 3.6-5.0 MMOL/L Chloride Level 97 L 98-107 MMOL/L Carbon Dioxide Level 28 21-32 MMOL/L Anion Gap 10 5-14 MMOL/L Blood Urea Nitrogen 15 7-18 MG/DL Creatinine 1.14 0.60-1.30 MG/DL Estimat Glomerular Filtration Rate > 60 BUN/Creatinine Ratio 13 Glucose Level 100 70-105 MG/DL Calcium Level 9.7 8.5-10.1 MG/DL Corrected Calcium 9.5 8.5-10.1 MG/DL Magnesium Level 2.1 1.6-2.4 MG/DL Total Bilirubin 0.4 0.1-1.0 MG/DL Aspartate Amino Transf (AST/SGOT) 14 5-34 U/L Alanine Aminotransferase (ALT/SGPT) 13 0-55 U/L Alkaline Phosphatase 91 40-136 U/L Total Creatine Kinase 33 30-200 U/L Creatine Kinase MB 0.6 <6.6 NG/ML Myoglobin 51.2 10.0-92.0 NG/ML Troponin I < 0.028 <0.028 NG/ML B-Type Natriuretic Peptide 90.5 <100.0 PG/ML Total Protein 7.3 6.4-8.2 GM/DL Albumin 4.2 3.2-4.5 GM/DL TSH [place] Testing 1.57 0.35-4.94 UIU/ML Phenytoin (Dilantin) Level 7.4 L 10.0-20.0 mg/L Serum Alcohol < 10 <10 MG/DL Urine Color YELLOW Urine Clarity CLEAR Urine pH 8.0 5-9 Urine Specific [place] 1.010 L 1.016-1.022 Urine Protein NEGATIVE NEGATIVE Urine Glucose (UA) NEGATIVE NEGATIVE Urine Ketones NEGATIVE NEGATIVE Urine Nitrite NEGATIVE NEGATIVE Urine Bilirubin NEGATIVE NEGATIVE Urine Urobilinogen 0.2 < = 1.0 MG/DL Urine Leukocyte Esterase NEGATIVE NEGATIVE Urine RBC (Auto) 2+ H NEGATIVE Urine RBC 5-10 H /HPF Urine WBC NONE /HPF Urine Squamous Epithelial Cells RARE /HPF Urine Crystals NONE /LPF Urine Bacteria NEGATIVE /HPF Urine Casts NONE /LPF Urine Mucus NEGATIVE /LPF Urine Culture Indicated NO Urine Opiates Screen NEGATIVE NEGATIVE Urine Oxycodone Screen NEGATIVE NEGATIVE Urine Methadone Screen NEGATIVE NEGATIVE Urine Propoxyphene Screen NEGATIVE NEGATIVE Urine Barbiturates Screen POSITIVE H NEGATIVE Ur Tricyclic Antidepressants Screen POSITIVE H NEGATIVE Urine Phencyclidine Screen NEGATIVE NEGATIVE Urine Amphetamines Screen NEGATIVE NEGATIVE Urine Methamphetamines Screen NEGATIVE NEGATIVE Urine Benzodiazepines Screen NEGATIVE NEGATIVE Urine Cocaine Screen NEGATIVE NEGATIVE Urine Cannabinoids Screen NEGATIVE NEGATIVE My Orders Orders - THANH ESPINOZA DO Ed Iv/Invasive Line Start (06/15/19 08:24) Ekg Tracing (06/15/19 08:24) Monitor-Rhythm Ecg Trace Only (06/15/19 08:24) Ct Head Wo-R/O Stroke (06/15/19 08:24) Chest 1 View, Ap/Pa Only (06/15/19 08:24) Alcohol (06/15/19 08:24) BNP (06/15/19 08:24) Cbc With Automated Diff (06/15/19 08:24) Comprehensive Metabolic Panel (06/15/19 08:24) Creatine Kinase (06/15/19 08:24) Creatine Kinase Mb (06/15/19 08:24) Dilantin (Phenytoin) (06/15/19 08:24) Drug Screen Stat (Urine) (06/15/19 08:24) Magnesium (06/15/19 08:24) Protime With Inr (06/15/19 08:24) Partial Thromboplastin Time (06/15/19 08:24) Thyroid Analyzer (06/15/19 08:24) Ua Culture If Indicated (06/15/19 08:24) Myoglobin Serum (06/15/19 08:24) Troponin I (06/15/19 08:24) Ct Angio Head/Neck (06/15/19 09:33) Iohexol Injection (Omnipaque 350 Mg/Ml 1 (06/15/19 09:45) Received Contrast (Hold Metformin- Contr (06/15/19 09:45) Ns (Ivpb) (Sodium Chloride 0.9% Ivpb Bag (06/15/19 09:45) Medications Given in ED Vital Signs/I&O Capillary Refill : Less Than 3 Seconds Blood Pressure Mean: 84 POS Progress Note : Progress Note PT COMPLETELY ASYMPTOMATIC DURING ENTIRE ER STAY DILANTIN LEVELS ARE NOT DONE ON "STAT" BASIS FOR ER--WILL NOT HAVE RESULTS BACK TODAY. ECG Initial ECG Impression Date: Jun 15, 2019 Initial ECG Impression Time: 08:33 Initial ECG Rate: 83 Initial ECG Rhythm: Normal Sinus (IVCD, MUCH ARTIFACT) Diagnostic Imaging Comments CT HEAD--OLD LEFT MCA INFARCT, UNCHANGED FROM 12/22/11, PER RADIOLOGIST REPORT AT 0932 CT ANGIOGRAM OF HEAD AND NECK--NO ACUTE CHANGE, OLD LEFT MCA INFARCT, PER RADIOLOGIST VIA PHONE AT 1105 CXR--NO ACUTE PROCESS, PER RADIOLOGIST REPORT Reviewed: Reviewed by Sc Departure Communication (Admissions) 1155--SPOKE WITH DR. LESTER, HE ADVISES TO SEND PT HOME, AND HE WILL SEE PT IN OFFICE THIS WEEK FOR FOLLOW UP. HE WILL FOLLOW UP ON DILANTIN LEVEL Impression Primary Impression: Transient confusion Disposition: 01 HOME, SELF-CARE Condition: Stable Departure-Patient Inst. Referrals: REBA LESTER MD (PCP/Family) Primary Care Physician Patient Instructions: Delirium (Confusion) (DC), Altered Mental Status (DC) Add. Discharge Instructions: CONTINUE YOUR MEDICATIONS USUAL FOLLOW UP WITH DR. LESTER THIS WEEK FOR FURTHER CARE--CALL TODAY FOR APPOINTMENT RETURN TO ER IF SYMPTOMS WORSEN All discharge instructions reviewed with patient and/or family. Voiced understanding. THANH ESPINOZA DO Jun 15, 2019 12:08 POS
[2019-06-15 12:13] VITALS: BP 94/51
== END 2019-06-15 12:22 | disposition home or self-care (01) ==
LOC: EDUNIT# 08:19 → ER 08:20
DX: R41.0 Disorientation, unspecified (principal); I48.91 Unspecified atrial fibrillation; J45.909 Unspecified asthma, uncomplicated; I10 Essential (primary) hypertension; F41.9 Anxiety disorder, unspecified; Z82.49 Family history of ischemic heart disease and other diseases of the circulatory system; Z86.73 Personal history of transient ischemic attack (TIA), and cerebral infarction without residual deficits; Z79.01 Long term (current) use of anticoagulants; Z88.0 Allergy status to penicillin; Z79.51 Long term (current) use of inhaled steroids; Z79.52 Long term (current) use of systemic steroids; Z87.891 Personal history of nicotine dependence; Z80.0 Family history of malignant neoplasm of digestive organs
CPT/HCPCS: 36415; 70450; 70496; 70498; 71045; 80053; 80185; 80306; 80320; 81000; 82550; 82553; 83735; 83874; 83880; 84443; 84484; 85025; 85610; 85730; 93005; 93041

== ENCOUNTER 2020-05-18 19:03 | Inpatient (IN) | payer MEDICARE ==
[~2020-05-18] VITALS: Ht 160 cm; Wt 79.9 kg
[~2020-05-18 19:03] MED LIST changes: +ASPI-1238 PO; -ASPI-983 PO; -DIGO125T PO; +DIGO125T3 PO; +DILT-109 PO; -DILT240C9 PO; -ENAL2.5T PO; +ENLP2.5T PO; +IBAN150T21 PO; -MONT10TA24 PO; +MONT10TA26 PO; -OMEP20CA13 PO; +OMEP20CA18 PO
--- NOTE | 2020-05-18 19:35 | ED General ---
General Stated Complaint: WEAKNESS;FEVER Source of Information: Patient Exam Limitations: No Limitations History of Present Illness Date Seen by Provider: May 18, 2020 Time Seen by Provider: 19:15 Initial Comments Mr. Barros is a 69-year-old male who presents to the emergency department by EMS tonight after he reports that his parents called EMS because they had a hard time getting a hold of him. Mr. Barros states that he has had a cough for the about the last 10 days he is not had anything to eat for the last 5 days, EMS initially reported that he had a temperature of 103.6 however on presentation his temperature is 99. He states that he has had a productive cough. He denies sore throat runny nose congestion. He states that he has been a little short of breath. He states he is not making as much urine as normally. He denies any GI upset no diarrhea no nausea vomiting. He has a history of atrial fibrillation by review of the medical records and is anticoagulated on Eliquis. 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 He lives alone at home. He seems pleasantly confused as he cannot say the right year and cannot recall the president currently. He is able to state where he is. He is able to answer questions about his past medical history. All other review of systems reviewed and negative except as stated above. Timing/Duration: 1 Week Severity: Moderate Associated Systoms: No Chest Pain; Cough; No Diaphoresis, No Fever/Chills; Loss of Appetite; No Malaise, No Nausea/Vomiting; Shortness of Air Allergies and Home Medications Allergies Coded Allergies: Penicillins (Unverified Allergy, Unknown, 10/19/17) Home Medications Acetaminophen/Chlorpheniramine 1 Each Tablet, 2 TAB PO EVERY 4-6 HOURS PRN for COUGH, (Reported) Amitriptyline HCl 25 Mg Tablet, 25 MG PO HS, (Reported) Apixaban 5 Mg Tablet, 5 MG PO BID, (Reported) Ascorbic Acid 500 Mg Tablet, 500 MG PO DAILY, (Reported) Buspirone HCl 15 Mg Tablet, 15 MG PO BID, (Reported) Cholecalciferol (Vitamin D3) 1,000 Unit Capsule, 2,000 UNIT PO DAILY, (Reported) TAKES 2 (1,000 UNIT) CAPSULES Diltiazem HCl 360 Mg Capsule.er, 360 MG PO DAILY, (Reported) Enalapril Maleate 2.5 Mg Tablet, 2.5 MG PO DAILY, (Reported) Fluticasone Propionate 16 Gm [place].susp, 2 SPRAYS NS HS, (Reported) Fluticasone/Salmeterol 1 Each Blst.w.dev, 1 PUFF IH BID, (Reported) Furosemide 40 Mg Tablet, 40 MG PO DAILY, (Reported) Guaifenesin 600 Mg Tab.er.12h, 600 MG PO BID, (Reported) Guaifenesin/Dextromethorphan 118 Ml Liquid, 10 ML PO Q4H PRN for COUGH, (Reported) Ibandronate Sodium 150 Mg Tablet, 150 MG PO MONTHLY ON THE , (Reported) Montelukast Sodium 10 Mg Tablet, 10 MG PO HS, (Reported) Multivitamin with Minerals 1 Each Tablet, 1 TAB PO DAILY, (Reported) [place] 3 Polyunsat Fatty Acids 1,000 Mg Cap, 1,000 MG PO DAILY, (Reported) Omeprazole 20 Mg Capsule.dr, 20 MG PO DAILY, (Reported) Phenytoin Sodium Extended 100 Mg Capsule, 200 MG PO HS, (Reported) LAST FILLED #360 2015 Potassium Chloride 20 Meq Tab.er.prt, 20 MEQ PO DAILY, (Reported) Prednisone 5 Mg Tablet, 5 MG PO DAILY, (Reported) Sodium Chloride 30 Ml [place], 1-2 SPRAYS NS TID PRN for DRY NOSE, (Reported) Sotalol HCl 80 Mg Tablet, 80-160 MG PO BID, (Reported) TAKE 160 MG (2 TABS) IN THE MORNING TAKE 80MG (1 TAB) IN THE EVENING Tiotropium [place] 1 Inh Aerp, 1 CAP IH DAILY, (Reported) Patient Home Medication List Home Medication List Reviewed: Yes Review of Systems Review of Systems Constitutional: weakness EENTM: no symptoms reported Respiratory: cough, short of breath Cardiovascular: No chest pain, No palpitations Gastrointestinal: no symptoms reported Genitourinary: decreased output Musculoskeletal: no symptoms reported Skin: no symptoms reported Psychiatric/Neurological: No Symptoms Reported All Other Systems Reviewed Negative Unless Noted: Yes Past Fdehfli-Mmsikt-Syhzdl Hx Patient Social History Type Used: Cigarettes Former Smoker, Quit: Jul 30, 1999 Recent Hopitalizations: No Immunizations Up To Date Tetanus Booster (TDap): Unknown PED Vaccines UTD: No Date of Pneumonia Vaccine: Apr 28, 2016 Date of Influenza Vaccine: Apr 07, 2017 Seasonal Allergies Seasonal Allergies: Yes Past Medical History Surgeries: Yes (Heart surgery at 10 OR 14 years of age) Cardiac Respiratory: Yes Asthma Currently Using CPAP: No Currently Using BIPAP: No Cardiac: Yes (open heart sx at 10 OR 14 years after endocarditis) Atrial Fibrillation, Congenital Heart Disease, Endocarditis, Hypertension, Valvular Heart Disease Neurological: Yes Stroke Reproductive Disorders: No Sexually Transmitted Disease: No HIV/AIDS: No Genitourinary: No Gastrointestinal: No Musculoskeletal: Yes (RIGHT PARTIAL HEMIPLEGIA DUE TO PRIOR CVA) Arthritis, Foot Drop, Contracture Endocrine: No HEENT: No Loss of Vision: Denies Hearing Impairment: Denies Cancer: No Psychosocial: Yes Anxiety Integumentary: No Blood Disorders: No Adverse Reaction/Blood Tranf: No Family Medical History Alcoholism G8 BROTHER, Onset:Unknown Arthritis 19 MOTHER, Onset:Unknown Cardiovascular disease G8 SISTER, Onset:60 years & older 19 FATHER, Onset:60 years & older Completed stroke G8 BROTHER, Onset:50's - 60 FH: breast cancer 19 MOTHER, Onset:60 years & older Hypercholesterolemia 19 FATHER, Onset:Unknown Myocardial infarction 19 FATHER, Onset:60 years & older Seizure disorder G8 BROTHER, Onset:50's - 60 Physical Exam Vital Signs Vital Signs - First Documented 05/18/20 05/19/20 19:05 02:44 Temp 36.4 Pulse 123 Resp 22 B/P (MAP) 123/84 (97) Pulse Ox 94 O2 Delivery Nasal Cannula O2 Flow Rate 3.00 FiO2 32 Capillary Refill : Height, Weight, BMI Height: 5'3.00" Weight: 169lbs. 0.0oz. 76.266391ul; 29.00 BMI Method:Stated General Appearance: No Apparent Distress, WD/WN Eyes: Bilateral Eye Normal Inspection, Bilateral Eye PERRL, Bilateral Eye EOMI HEENT: PERRL/EOMI, Pharynx Normal, Other (mildly dry oral mucosa) Neck: Normal Inspection Respiratory: Lungs Clear, Normal Breath Sounds, No Accessory Muscle Use, No Respiratory Distress Cardiovascular: Irregularly Irregular, Tachycardia (130s) Gastrointestinal: Normal Bowel Sounds, Non Tender, Soft Extremity: Other (chronic contratures RUE, foot drop on the right.) Neurologic/Psychiatric: Alert, No Motor/Sensory Deficits, Normal Mood/Affect, silk screen processor II-XII Norm as Tested, Disoriented (to year and day of the week; ) Procedures/Interventions Suture Size: 5-0 Progress/Results/Core Measures Suspected Sepsis SIRS Temperature: Pulse: Respiratory Rate: Laboratory Tests 05/18/20 19:25: White Blood Count 8.8 Blood Pressure / Mean: Laboratory Tests 05/18/20 19:25: Creatinine 1.89H, Platelet Count 591H, Total Bilirubin 0.5 Results/Orders Lab Results Laboratory Tests Test 05/18/20 19:25 05/18/20 19:30 Range/Units White Blood Count 8.8 4.3-11.0 10^3/uL Red Blood Count 4.96 4.30-5.52 10^6/uL Hemoglobin 14.9 13.3-17.7 g/dL Hematocrit 47 40-54 % Mean Corpuscular Volume 95 80-99 fL Mean Corpuscular Hemoglobin 30 25-34 pg Mean Corpuscular Hemoglobin Concent 32 32-36 g/dL Red Cell Distribution Width 14.0 10.0-14.5 % Platelet Count 591 H 130-400 10^3/uL Mean Platelet Volume 8.8 L 9.0-12.2 fL Immature Granulocyte % (Auto) 1 % Neutrophils (%) (Auto) 83 H 42-75 % Lymphocytes (%) (Auto) 10 L 12-44 % Monocytes (%) (Auto) 6 0-12 % Eosinophils (%) (Auto) 0 0-10 % Basophils (%) (Auto) 0 0-10 % Neutrophils # (Auto) 7.3 1.8-7.8 10^3/uL Lymphocytes # (Auto) 0.9 L 1.0-4.0 10^3/uL Monocytes # (Auto) 0.5 0.0-1.0 10^3/uL Eosinophils # (Auto) 0.0 0.0-0.3 10^3/uL Basophils # (Auto) 0.0 0.0-0.1 10^3/uL Immature Granulocyte # (Auto) 0.0 0.0-0.1 10^3/uL Sodium Level 147 H 135-145 MMOL/L Potassium Level 4.7 3.6-5.0 MMOL/L Chloride Level 105 98-107 MMOL/L Carbon Dioxide Level 20 L 21-32 MMOL/L Anion Gap 22 H 5-14 MMOL/L Blood Urea Nitrogen 52 H 7-18 MG/DL Creatinine 1.89 H 0.60-1.30 MG/DL Estimat Glomerular Filtration Rate 36 BUN/Creatinine Ratio 28 Glucose Level 78 70-105 MG/DL Calcium Level 9.1 8.5-10.1 MG/DL Corrected Calcium 9.4 8.5-10.1 MG/DL Total Bilirubin 0.5 0.1-1.0 MG/DL Aspartate Amino Transf (AST/SGOT) 109 H 5-34 U/L Alanine Aminotransferase (ALT/SGPT) 49 0-55 U/L Alkaline Phosphatase 81 40-136 U/L Troponin I 0.136 H <0.028 NG/ML Total Protein 8.1 6.4-8.2 GM/DL Albumin 3.6 3.2-4.5 GM/DL Coronavirus 2019 (MARVIN) Positive H Negative My Orders Orders - GEORGINA STRONG MD Ed Iv/Invasive Line Start (05/18/20 19:19) Cbc With Automated Diff (05/18/20 19:19) Comprehensive Metabolic Panel (05/18/20 19:19) Chest 1 View, Ap/Pa Only (05/18/20 19:19) Covid 19 Inhouse Test (05/18/20 19:19) Troponin I (05/18/20 19:19) Ekg Tracing (05/18/20 19:24) Diltiazem Injection (Cardizem Injection) (05/18/20 19:45) Ns Iv 1000 Ml (Sodium Chloride 0.9%) (05/18/20 20:23) Diltiazem Injection (Cardizem Injection) (05/18/20 20:30) Ekg Tracing (05/18/20 20:36) Oxygen-Administer ,19 (05/18/20 20:36) Medications Given in ED Current Medications Medications Dose Ordered Sig/Josiah Route Start Time Stop Time Status Last Admin Dose Admin Diltiazem HCl 15 mg ONCE ONCE IVP 05/18/20 20:30 05/18/20 20:31 DC 05/18/20 20:31 15 MG Diltiazem HCl 20 mg ONCE ONCE IVP 05/18/20 19:45 05/18/20 19:46 DC 05/18/20 20:04 20 MG Vital Signs/I&O 05/18/20 05/18/20 05/18/20 05/19/20 19:05 19:05 23:51 00:45 Temp 36.4 36.4 Pulse 123 121 117 Resp 22 16 B/P (MAP) 123/84 (97) 111/90 (97) 116/62 (80) Pulse Ox 94 95 95 O2 Delivery Nasal Cannula Nasal Cannula Nasal Cannula Nasal Cannula O2 Flow Rate 3.00 3.00 3.00 3.00 05/19/20 05/19/20 05/19/20 05/19/20 01:00 01:02 01:15 01:30 Pulse 170 180 172 170 B/P (MAP) 85/72 (76) 89/68 (75) 95/74 (81) Pulse Ox 93 97 97 O2 Delivery Nasal Cannula Nasal Cannula Nasal Cannula O2 Flow Rate 3.00 3.00 3.00 05/19/20 05/19/20 05/19/20 05/19/20 02:00 02:30 02:44 03:00 Pulse 163 186 121 163 B/P (MAP) 111/37 (61) 104/58 (73) 107/68 (81) Pulse Ox 96 97 95 97 O2 Delivery Nasal Cannula Nasal Cannula Nasal Cannula O2 Flow Rate 3.00 3.00 3.00 FiO2 32 05/19/20 04:00 Pulse 158 Resp 29 B/P (MAP) 93/70 (78) Pulse Ox 96 O2 Delivery Nasal Cannula O2 Flow Rate 3.00 05/19/20 00:00 Intake Total 100 ml Balance 100 ml Capillary Refill : Progress Note : Time: 20:55 Progress Note 69-year-old male presents to the emergency room with hypoxia, tachypnea, tachycardia. Patient with a history of atrial fibrillation, pleasantly confused this evening cannot recall if he is taken any of his medications today. Patient appears to be in atrial fibrillation with rapid ventricular response on his initial EKG taken at 735. It looks like it intermittently wants to be a sinus rhythm with frequent PACs mixed in with A. fib. Patient's rate was 130 at the time he is afebrile. He is given 20 mg bolus of IV Cardizem with a transient slowing of his heart rate down to 115. He is given a second bolus of 15 mg still remaining at a heart rate of about 110. Second EKG again shows an irregularly irregular rhythm with frequent PACs interspersed with A. fib. Case is discussed with Dr. Suarez who accepts the patient to the cardiac stepdown unit. I also discussed the case with Dr. Bustamante we will give him his oral dose of diltiazem as well as his Eliquis and a dose of his Betapace. He is also Covid positive this evening. Clinically does not have any findings concerning for sepsis. ECG Initial ECG Impression Date: May 18, 2020 Initial ECG Impression Time: 19:35 Initial ECG Rhythm: A Fib/Flutter Initial ECG Impression: Atrial Fibrillation w/RVR Diagnostic Imaging Diagonstic Imaging: Xray Plain Films/CT/US/NM/MRI: chest Comments [facility] [place] [place] NAME: MOLINA BARROS JR [facility] REC#: [id number] PT STATUS: REG ER : 1950 PHYSICIAN: GEORGINA STRONG MD ADMIT DATE: 05/18/20/ER Draft Date of Exam:05/18/20 CHEST 1 VIEW, AP/PA ONLY INDICATION: Cough, short of breath Portable chest shows normal heart size and vascularity. There is perihilar basilar discoid atelectasis. No infiltrates are evident. There is no effusion or pneumothorax. IMPRESSION: There is bilateral discoid atelectasis which has increased since the study from 06/15/2019. Dictated on workstation # [id number] Dict: 05/18/202005 Trans: 05/18/202011 CVB [id number] Interpreted by: DAMIAN DENG MD Electronically signed by: Critical Care Note Critical Care Start Time: 19:15 Stop Time: 20:15 Total Time (minutes) 60min critical care time, eval and management of hypoxia; fluid resuscitation; control of afib with RVR and review of medical records, discussion with Hospitalist and cardiology Departure Communication (Admissions) Time/Spoke to Admitting Phy: 20:[address] Suarez, would like a consultation with Dr. Bustamante. Place pa tient on cardiac stepdown Time/Spoke to Consulting Phy: 20:[address] Bustamante; ok to give oral dose of diltiazem, his eliquis and his betapace Impression Primary Impression: Atrial fibrillation with rapid ventricular response Additional Impressions: COPD (chronic obstructive pulmonary disease) Qualified Codes: J44.0 - Chronic obstructive pulmonary disease with (acute) lower respiratory infection Coronavirus infection Disposition: ADMITTED INPATIENT Condition: Stable Admissions Decision to Admit Reason: Admit from ER (General) Decision to Admit/Date: May 18, 2020 Time/Decision to Admit Time: 20:52 Departure-Patient Inst. Referrals: REBA LESTER MD (PCP/Family) Primary Care Physician Copy Copies To 1: REBA LESTER MD, KATHRYN M MD May 18, 2020 19:35
[2020-05-18 19:42] LABS: BASOPHILS % (AUTO) 0 % (0-10); EOSINOPHILS % (AUTO) 0 % (0-10); HEMATOCRIT 47 % (40-54); HEMOGLOBIN 14.9 g/dL (13.3-17.7); LYMPHOCYTES # (AUTO) 0.9 10^3/uL (1.0-4.0); LYMPHOCYTES % (AUTO) 10 % (12-44); MEAN CORPUSCULAR HEMOGLOBIN 30 pg (25-34); MEAN CORPUSCULAR HGB CONC 32 g/dL (32-36); MEAN CORPUSCULAR VOLUME 95 fL (80-99); MEAN PLATELET VOLUME 8.8 fL (9.0-12.2); MONOCYTES # (AUTO) 0.5 10^3/uL (0.0-1.0); MONOCYTES % (AUTO) 6 % (0-12); NEUTROPHILS # (AUTO) 7.3 10^3/uL (1.8-7.8); NEUTROPHILS % (AUTO) 83 % (42-75); PLATELET COUNT 591 10^3/uL (130-400); WHITE BLOOD COUNT 8.8 10^3/uL (4.3-11.0)
[2020-05-18 20:00] LABS: ALBUMIN 3.6 GM/DL (3.2-4.5); BILIRUBIN,TOTAL 0.5 MG/DL (0.1-1.0); CALCIUM 9.1 MG/DL (8.5-10.1); CREATININE SERUM 1.89 MG/DL (0.60-1.30); POTASSIUM 4.7 MMOL/L (3.6-5.0); TOTAL PROTEIN 8.1 GM/DL (6.4-8.2)
--- NOTE | 2020-05-18 20:12 | Diagnostic Imaging Report ---
INDICATION: Cough, short of breath Portable chest shows normal heart size and vascularity. There is perihilar basilar discoid atelectasis. No infiltrates are evident. There is no effusion or pneumothorax. IMPRESSION: There is bilateral discoid atelectasis which has increased since the study from 06/15/2019. Dictated by: Dictated on workstation # [id number]
[2020-05-18] MEDS ORDERED: NS IV 1000 ML 1,000 ML IV STA (20:23)
--- NOTE | 2020-05-18 20:55 | NUR ---
YARN MERCERIZER OPERATOR NOTIFIED FOR REQUEST FOR CSD BED. PER YARN MERCERIZER OPERATOR PT'S WILL HAVE TO BE TRIAGED OUT OF ICU/CSD PRIOR TO ADMIT.
--- NOTE | 2020-05-18 21:30 | NUR ---
1L NS STARTED BY EMS COMPLETE AT THIS TIME.
--- NOTE | 2020-05-18 21:59 | NUR ---
GAS TORCH BRAZIER CONTACTED ABOUT OBTAINING ROOM NUMBER FOR CSD ADMISSION. ROOM 510, BUT PT WILL STILL NEED TO BE TRIAGED OUT OF ICU/CSD BEFORE MR. GAY WILL BE ABLE TO BE ADMITTED.
--- NOTE | 2020-05-18 23:32 | NUR ---
ICU/CSD CALLED AT THIS TIME TO SEE IF THEY ARE READY TO RECEIVE PT. CHRISTIE SANTORO TO TRANSPORT PT PT COVID 19+ AND REQUESTED TO DO BEDSIDE REPORT.
[2020-05-19] VITALS (15 sets, daily range): BP systolic 85–129; BP diastolic 37–77
[2020-05-19] MEDS ORDERED: ACETAMINOPHEN 325 MG TABLET ONE (00:10)
[2020-05-19] MEDS ORDERED: NS IV 1000 ML 1,000 ML IV SCH ×3 (00:15→13:00)
[2020-05-19] MEDS ORDERED: guaiFENesin/CODEINE (ROBITUSSIN AC) 10ML UDC PO PRN (00:15)
[2020-05-19] MEDS ORDERED: fentaNYL INJECTION 100 MCG/2 ML AMP IVP PRN (00:15)
[2020-05-19] MEDS ORDERED: diphenhydrAMINE 25 MG TAB (BENADRYL) PO PRN (00:15)
[2020-05-19] MEDS ORDERED: HYDROcodone/APAP 5 MG/325 MG (LORTAB) TAB PO PRN (00:15)
[2020-05-19] MEDS ORDERED: ACETAMINOPHEN 500 MG TAB (TYLENOL) PO PRN (00:15)
[2020-05-19] MEDS ORDERED: MELATONIN 3 MG TABLET PO PRN (00:15)
[2020-05-19] MEDS ORDERED: ONDANSETRON 4 MG/2 ML (SDV) Z0FRAN IVP PRN (00:15)
[2020-05-19] MEDS ORDERED: DOCUSATE SODIUM 100 MG (COLACE) CAP PO PRN (00:15)
[2020-05-19] MEDS ORDERED: CALCIUM CARBONATE 500 MG (TUMS) TAB.CHEW PO PRN (00:15)
[2020-05-19] MEDS ORDERED: LOPERAMIDE 2 MG (IMODIUM) TABLET PO PRN (00:15)
[2020-05-19] MEDS: NS IV 1000 ML 1,000 ML IV SCH ×2 (00:30→13:19)
--- NOTE | 2020-05-19 01:44 | NUR ---
THIS RN CALLED DR. ADAMS @ 014 D/T PT'S HR SUSTAINED IN THE 170'S. DR ADMAS GAVE NEW ORDERS FOR 1 BOLUS OF NS TO BRING SBP ABOVE 110 AND TO THEN GIVE 10MG CARDIZEM BOLUS AND TO THEN START CARDIZEM DRIP AT 10. DR. ADAMS REQUESTS THAT THIS PT'S SBP STAY ABOVE 100 WHILE ON CARDIZEM DRIP.
[2020-05-19] MEDS ORDERED: dilTIAZem DRIP PRE-MIX 125 ML IV ONE (02:47)
[2020-05-19] MEDS: dilTIAZem DRIP PRE-MIX 125 ML IV SCH ×3 (02:55→19:34)
[2020-05-19 05:12] LABS: ALBUMIN 2.9 GM/DL (3.2-4.5); BILIRUBIN,TOTAL 0.3 MG/DL (0.1-1.0); CALCIUM 7.9 MG/DL (8.5-10.1); CREATININE SERUM 1.56 MG/DL (0.60-1.30); POTASSIUM 3.8 MMOL/L (3.6-5.0); TOTAL PROTEIN 6.2 GM/DL (6.4-8.2)
[2020-05-19] MEDS ORDERED: FLU QUAD HIGH DOSE 240 MCG/0.7 ML 2020-21 (FLUZONE) IM ONE (07:00)
[2020-05-19] MEDS: RT-ALBUTEROL INHALER HFA (VENTOLIN HFA) 18 GM IH SCH ×6 (07:38→22:27)
[2020-05-19 07:58] LABS: BASOPHILS % (AUTO) 0 % (0-10); EOSINOPHILS % (AUTO) 0 % (0-10); HEMATOCRIT 40 % (40-54); HEMOGLOBIN 12.4 g/dL (13.3-17.7); LYMPHOCYTES # (AUTO) 0.8 10^3/uL (1.0-4.0); LYMPHOCYTES % (AUTO) 12 % (12-44); MEAN CORPUSCULAR HEMOGLOBIN 31 pg (25-34); MEAN CORPUSCULAR HGB CONC 31 g/dL (32-36); MEAN CORPUSCULAR VOLUME 99 fL (80-99); MEAN PLATELET VOLUME 9.4 fL (9.0-12.2); MONOCYTES # (AUTO) 0.4 10^3/uL (0.0-1.0); MONOCYTES % (AUTO) 5 % (0-12); NEUTROPHILS # (AUTO) 5.4 10^3/uL (1.8-7.8); NEUTROPHILS % (AUTO) 78 % (42-75); PLATELET COUNT 469 10^3/uL (130-400); WHITE BLOOD COUNT 6.9 10^3/uL (4.3-11.0)
[2020-05-19] MEDS: SOTALOL 80 MG (BETAPACE) TAB PO SCH ×2 (08:51→19:35)
[2020-05-19] MEDS: APIXABAN 5 MG (ELIQUIS) TABLET PO SCH ×2 (08:52→19:35)
[2020-05-19] MEDS: SENNA W/DOCUSATE (SENOKOT S) TABLET PO SCH ×2 (08:52→19:36)
[2020-05-19] MEDS ORDERED: APIXABAN 5 MG (ELIQUIS) TABLET PO SCH (09:00)
--- NOTE | 2020-05-19 12:40 | History & Physical-Hospitalist ---
History of Present Illness HPI/Chief Complaint Gallito Barros Jr is a 69-year-old male with past medical history of hypertension, COPD, atrial fibrillation, GERD, who presented with weakness. He says he has been sick for at least 2 weeks. He reports having a cough. He is a little bit short of breath. He just feels tired. He says he has not been eating and drinking very well. He denies any chest pain. He denies any palpitations. He denies any abdominal pain. He denies any nausea or vomiting. Source: patient Exam Limitations: no limitations Date Seen 05/19/20 Time Seen by a Provider: 10:50 Attending Physician Amie Suarez DO PCP Yeison Bailey MD Referring Physician Date of Admission May 18, 2020 at 21:02 Home Medications & Allergies Home Medications Reviewed patient Home Medication Reconciliation performed by pharmacy medication reconciliations echo technician and/or nursing. Patients Allergies have been reviewed. Allergies Allergies Coded Allergies Penicillins (Unverified Allergy, Unknown, 10/19/17) Past Pqacmcf-Cpnrhp-Kvcshh Hx Past Med/Social Hx: Reviewed Nursing Past Med/Soc Hx Patient Social History Alcohol Use: Denies Use Recreational Drug Use: No Smoking Status: Former Smoker Former Smoker, Quit: Jul 30, 1999 Type Used: Cigarettes Recent Foreign Travel: No Contact w/other who traveled: No Recent Hopitalizations: No Recent Infectious Disease Expo: No Immunizations Up To Date Tetanus Booster (TDap): Unknown Pediatric: No Date of Pneumonia Vaccine: Apr 28, 2016 Date of Influenza Vaccine: Apr 07, 2017 Seasonal Allergies Seasonal Allergies: Yes Past Medical History Surgeries: Cardiac Respiratory: COPD Currently Using CPAP: No Currently Using BIPAP: No Cardiac: Atrial Fibrillation, Congenital Heart Disease, Endocarditis, Hypertension, Valvular Heart Disease Neurological: Stroke Reproductive: No Sexually Transmitted Disease: No HIV/AIDS: No Musculoskeletal: Arthritis, Foot Drop, Contracture Loss of Vision: Denies Hearing Impairment: Denies Psychosocial: Anxiety History of Blood Disorders: No Adverse Reaction to Blood [place]: No Family History Alcoholism G8 BROTHER, Onset:Unknown Arthritis 19 MOTHER, Onset:Unknown Cardiovascular disease G8 SISTER, Onset:60 years & older 19 FATHER, Onset:60 years & older Completed stroke G8 BROTHER, Onset:50's - 60 FH: breast cancer 19 MOTHER, Onset:60 years & older Hypercholesterolemia 19 FATHER, Onset:Unknown Myocardial infarction 19 FATHER, Onset:60 years & older Seizure disorder G8 BROTHER, Onset:50's - 60 Review of Systems Constitutional: malaise, weakness EENTM: no symptoms reported Respiratory: cough, short of breath Cardiovascular: no symptoms reported Gastrointestinal: no symptoms reported Genitourinary: no symptoms reported Musculoskeletal: no symptoms reported Skin: no symptoms reported Psychiatric/Neurological: No Symptoms Reported Physical Exam Physical Exam Vital Signs Vital Signs - First Documented 05/18/20 05/19/20 19:05 02:44 Temp 36.4 Pulse 123 Resp 22 B/P (MAP) 123/84 (97) Pulse Ox 94 O2 Delivery Nasal Cannula O2 Flow Rate 3.00 FiO2 32 Capillary Refill : Less Than 3 Seconds Height, Weight, BMI Height: 5'3.00" Weight: 169lbs. 0.0oz. 76.587887yn; 28.12 BMI Method:Stated General Appearance: No Apparent Distress, WD/WN HEENT: PERRL/EOMI, Pharynx Normal Neck: Normal Inspection, Supple Respiratory: Lungs Clear, Normal Breath Sounds, No Respiratory Distress Cardiovascular: No Edema, No Murmur, Irregularly Irregular Gastrointestinal: Normal Bowel Sounds, Non Tender, Soft Extremity: Normal Inspection, Non Tender, No Pedal Edema Neurologic/Psychiatric: Alert, Oriented x3, Motor Weakness Skin: Normal Color, Warm/Dry Results Results/Procedures Labs Laboratory Tests 05/18/20 19:25 05/19/20 03:45 Patient resulted labs reviewed. Imaging: Reviewed Imaging Report Assessment/Plan Admission Diagnosis paroxysmal atrial fibrillation with rapid ventricular response Admission Status: Inpatient Order (span 2 midnights) Reason for Inpatient Admission: COVID Assessment and Plan Paroxysmal atrial fibrillation with rapid ventricular response Elevated troponin Troponin mildly elevated, likely due to demand ischemia Started on Cardizem gtt Cardiology consulted, appreciate assistance Continue Eliquis Viral sepsis COVID-19 COVID MARVIN positive Procal normal Decadron Convalescent plasma BLAIR Cr 1.89 on arrival, baseline ~1 Started on fluids Continue to monitor HTN GERD COPD Continue home meds once med rec completed DVT Prophylaxis: already receiving therapeutic anticoagulation Diagnosis/Problems Diagnosis/Problems (1) Atrial fibrillation with rapid ventricular response Status: Acute (2) Viral sepsis Status: Acute (3) COVID-19 Status: Acute (4) HTN (hypertension) Status: Chronic (5) GERD (gastroesophageal reflux disease) Status: Chronic Clinical Quality Measures DVT/VTE Risk/Contraindication: Risk Factor Score Per Nursin RFS Level Per Nursing on Admit: 4+=Very High Contraindications-Pharm: Other *list below* Other: already on home CAMILLA Cherry MD May 19, 2020 12:40
[2020-05-19] MEDS ORDERED: DIGOXIN 0.25 MG/ML (LANOXIN) 2 ML AMP IV ONE (13:00)
[2020-05-19] MEDS ORDERED: DIGOXIN 0.25 MG/ML (LANOXIN) 2 ML AMP ONE (13:03)
--- NOTE | 2020-05-19 13:12 | Occupational Therapy Eval ---
OT Evaluation-General/PLF Medical Diagnosis Admission Date May 18, 2020 at 21:02 Medical Diagnosis: COVID +, SOB Onset Date: May 18, 2020 Therapy Diagnosis Therapy Diagnosis: Decreased ADL status Height/Weight Height (Feet): 5 Height (Inches): 3.00 Weight (Pounds): 169 Weight (Ounces): 0.0 Precautions Precautions/Isolations: Airborne Isolation, Fall Prevention Referral Physician: Erick Referral Reason: Activity Tolerance, Self Care, Evaluation/Treatment, Strengthening/ROM Medical History Additional Medical History a fib, embolic stroke, COPD Current History Admits to ED via EMS. Has had cough for 10 days, decreased eating 5 days. [facility] Reviewed History: Yes Social History Home: Single Level Current Living Status: Alone Entry Into Home: Level Entry Steps Into Home: 0 Steps Inside Home: 0 ADL-Prior Level of Function SCALE: Activities may be completed with or without assistive devices. 6-Vuflblaxtg-gdosbxz completes the activity by him/herself with no assistance from a helper. 5-Set-up or Clean-up Assistance-helper sets up or cleans up; patient completes activity. [place] assists only prior to or following the activity. 4-Supervision or Touching Assistance-helper provides verbal cues and/or touching/steadying and/or contact guard assistance as patient completes activity. Assistance may be provided throughout the activity or intermittently. 3-Partial/Moderate Assistance-helper does LESS THAN HALF the effort. [place] lifts, holds or supports trunk or limbs, but provides less than half the effort. 2-Substantial/Maximal Assistance-helper does MORE THAN HALF the effort. [place] lifts or holds trunk or limbs and provides more than half the effort. 3-Nwghwpdcf-nvxizn does ALL the effort. Patient does none of the effort to complete the activity. Or, the assistance of 2 or more helpers is required for the patient to complete the activity. If activity was not attempted, code reason: 7-Patient Refused. 9-Not Applicable-not attempted and the patient did not perform the activity before the current illness, exacerbation or injury. 10-Not Attempted due to Environmental Limitations-(lack of equipment, weather restraints, etc.). 88-Not Attempted due to Medical Conditions or Safety Concerns. ADL PLOF Comments Pt states IND with I/ADLs with use of SPC for fx ambulation. Pt completes IADLs, though does not cook (take-out mostly) Self Care: Independent Functional Cognition: Independent DME/Equipment: Tub/Shower DME/Equipment Comments tub shower, SPC Drive Self: Yes OT Current Status Subjective Pt in bed upon entry, pt alert/ oriented. Pt very soft spoken. Pt denies pain, agrees to tx. Pt states he is "tired/ weak," end of session states, "I don't knwo if I can keep going." Pt is eating at this time. Mental Status/Objective Patient Orientation: Normal For Age Attachments: Trevizo Catheter, Oxygen, SCD's, Telemetry Current Glasses/Contacts: Yes Hearing Aids: No Dentures/Partials: No Hand Dominance: Left Upper Extremity ROM L limited shoulder movement, WFL all distal R limited due to previous CVA; flexor tone through hand with ulnar deviation and laxity of joint Upper Extremity Coordination L WFL, R decreased- no fx movement Upper Extremity Sensation WFL Upper Extremity Strength Decreased bilaterally (R no fx movement) Edema: pitting BLE ADL-Treatment Eating (QC): 5 (s/u containers, L arm propped to assist due to weakness.) Lower Body Dressing (QC): 1 (per clinical judgmenet) On/Off Footwear (QC): 1 (per clinical judgment) Other Treatments Pt reaches EOB with max A (assists with BLE and L arm, very weak). Pt sits with fair static sitting balance for ~3 minutes. Vitals monitored with HR increased to 120-134, BP in 80's/60's and 02 at 96%. Pt denies ability at this time to doff/ don socks or complete LB dressing. Pt able to flex hip WFL. returns to bed with TD. Pt able to assist toward HOB with LE's bent. Pt positioned in bed for food (L arm propped). Only desires fruit, denies OT calling for different meal. Pt left with call light in reach, all needs met. Education OT Patient Education: Correct positioning, Purpose of tx/functional activities, Safety issues, Transfer techniques Teaching Recipient: Patient Teaching Methods: Demonstration, Discussion Response to Teaching: Verbalize Understanding, Return Demonstration OT Shelter Goals Reworker Goals Time Frame: May 26, 2020 Eating (QC): 6 Oral Hygiene (QC): 6 Toileting Hygiene (QC): 3 Shower/Bathe Self (QC): 3 Upper Body Dressing (QC): 4 Lower Body Dressing (QC): 2 On/Off Footwear (QC): 2 Additional Goals: 1-Demonstrate ADL Tasks, 2-Verbalize Understanding, 3- ImproveStrength/Zofia 1=Demonstrate adherence to instructed precautions during ADL tasks. 2=Patient will verbalize/demonstrate understanding of assistive devices/modifications for ADL. 3=Patient will improve strength/tolerance for activity to enable patient to perform ADL's. OT Education/Plan Problem List/Assessment Assessment: Decreased Activ Tolerance, Decreased UE Strength, Dependent Transfers, Edema, Impaired Bed Mobility, Impaired Coordination, Impaired Funct Balance, Impaired I ADL's, Impaired Self-Care Skills, Restricted Funct UE ROM Discharge Recommendations Plan/Recommendations: Continue POC Therapy Discharge Recommendati: Assisted Living, Bath Aide, Post Acute OT Equpiment Recommendations-D/C: Extended Bath Bench, Rails on Tub/Shower Treatment Plan/Plan of Care Treatment,Training & Education: Yes Patient would benefit from OT for education, treatment and training to promote independence in ADL's, mobility, safety and/or upper extremity function for ADL's. Plan of Care: ADL Retraining, Functional Mobility, Orthotic Fitting/Training, UE Funct Exercise/Act, UE Neuromus Re-Ed/Coord Treatment Duration: May 26, 2020 Frequency: 5 times per week Estimated Hrs Per Day: .25 hour per day Agreement: Yes Rehab Potential: Fair Time/GCodes Start Time: 11:30 Stop Time: 12:04 Total Time Billed (hr/min): 34 Billed Treatment Time 1, EDWARDM, SHERRIE (34) [place] OTR May 19, 2020 13:12
[2020-05-19] MEDS ORDERED: CHOL100048 PO (13:46)
[2020-05-19] MEDS ORDERED: PHEN100C4 PO (13:46)
--- NOTE | 2020-05-19 13:47 | NUR ---
SPOKE WITH THE PT (CALLED THE ROOM PHONE), WENT THRU THE EXT MED HISTORY AND GOT A MED LIST FROM DR. WAY OFFICE AND DR. SMITH OFFICE TO COMPLETE THE MED REC WHEN I SPOKE WITH THE PT HE COULD GIVE ME ANY INFORMATION ABOUT HIS MEDICATIONS, EVEN WHEN I NAMED SOME OF HIS MEDICATIONS HE APOLOGIZED AND TOLD ME HE COULDNT REMEMBER. I THEN ASKED IF THERE WAS A FAMILY MEMBER OR LOVED ONE WHO I COULD GET THE INFORMATION FROM AND HE REPLIED WITH " YOU CAN DRIVE AROUND WITH YOUR CELL PHONE AND HOPE IT WORKS". I LET HIM KNOW I WOULD CONTACT HIS PROVIDERS FOR A MEDICATION LIST AND ENDED THE CALL THE MED REC HAS BEEN ENTERED JUST USING THE MED LISTS AND THE EXT MED HISTORY
--- NOTE | 2020-05-19 15:15 | NUR ---
Crusher Plant Operator referral. Pt expressed concerns about dying. Crusher Plant Operator encouraged sharing of feelings and concerns and encouraged positive coping. The pt is Gnosticist and welcomed a rosary and prayer card, which this Crusher Plant Operator provided. The pt welcomed prayer and expressed appreciation for the support.
--- NOTE | 2020-05-19 15:19 | Physical Therapy Evaluation ---
PT Evaluation-General Medical Diagnosis Admission Date May 18, 2020 at 21:02 Medical Diagnosis: COVID +, SOB Onset Date: May 18, 2020 Therapy Diagnosis Therapy Diagnosis: COVID +, WEAKNESS Height/Weight Height (Feet): 5 Height (Inches): 3.00 Weight (Pounds): 169 Weight (Ounces): 0.0 Precautions Precautions/Isolations: Airborne Isolation, Fall Prevention Referral Physician: Erick Reason for Referral: Evaluation/Treatment Medical History Pertinent Medical History: Atrial Fib, COPD, CVA Current History ED via EMS secondary to cough past 10 days and decreased eating 5 days Reviewed History: Yes Social History Home: Single Level Current Living Status: Alone Entry Into Home: Level Entry PT Steps Into Home: 0 PT Steps Inside Home: 0 Prior Prior Level of Function SCALE: Activities may be completed with or without assistive devices. 5-Bbemyfxgwx-qjjkyuj completes the activity by him/herself with no assistance from a helper. 5-Set-up or Clean-up Assistance-helper sets up or cleans up; patient completes activity. [place] assists only prior to or following the activity. 4-Supervision or Touching Assistance-helper provides verbal cues and/or touching/steadying and/or contact guard assistance as patient completes activity. Assistance may be provided throughout the activity or intermittently. 3-Partial/Moderate Assistance-helper does LESS THAN HALF the effort. [place] lifts, holds or supports trunk or limbs, but provides less than half the effort. 2-Substantial/Maximal Assistance-helper does MORE THAN HALF the effort. [place] lifts or holds trunk or limbs and provides more than half the effort. 8-Kctrdgjgu-ugwwyc does ALL the effort. Patient does none of the effort to complete the activity. Or, the assistance of 2 or more helpers is required for the patient to complete the activity. If activity was not attempted, code reason: 7-Patient Refused. 9-Not Applicable-not attempted and the patient did not perform the activity before the current illness, exacerbation or injury. 10-Not Attempted due to Environmental Limitations-(lack of equipment, weather restraints, etc.). 88-Not Attempted due to Medical Conditions or Safety Concerns. Bed Mobility: 6 Transfers (B,C,W/C): 6 Gait: 6 Indoor Mobility (Ambulation): Independent Prior Device Use: SPC PT Evaluation-Current Subjective Pt presents supine in bed, agreeable to therapy treatment with encouragement. Pt continuously states "I am too weak to do this, can I go back to bed." Pt/Family Goals Following session, pt returned to supine in bed, call light and tray within reach. All needs met at this time Objective Attachments: Oxygen (2L), Trevizo Catheter, IV ROM/Strength ROM Lower Extremities WFL with bed mobility Strength Lower Extremities Grossly <3/5 with functional mobility Integumentary/Posture Integumentary Refer to nursing notes Bladder Incontinence: Trevizo Cath Neuromuscular (Tone, Coordination, Reflexes) Grossly intact. Increased flexor tone in R UE and hand Sensory Hand Dominance: Left Transfers Roll Left to Right (QC): 1 Sit to Lying (QC): 1 Lying to Sitting/Side of Bed(Q: 1 Max A to get to EOB, once seated pt with fair seated balance. Pt sat EOB for approx 2 minutes before returning to supine in bed, max A Gait Does the Patient Walk?: No and Walking Goal IS indicated Balance Sitting Static: Fair Sitting Dynamic: Fair Treatment While seated at EOB, pt BP 88/50s, HR 130s, and SaO2 95%. Pt visibly working hard with each breath, RN notified of vital signs with sitting at EOB Assessment/Needs Pt is a 69 year old male with decreased strength, balance, and activity tolerance secondary to COVID diagnosis.Pt lives home alone and would benefit from skilled PT to address above limitations and to ensure safety upon dc from hospital. Rehab Potential: Fair PT Typewriter Repairer Goals Typewriter Repairer Goals PT Residential Goals Time Frame: Jun 02, 2020 Roll Left & Right (QC): 4 Sit to Lying (QC): 4 Lying-Sitting on Side/Bed(QC): 4 Sit to Stand (QC): 3 Chair/Eqj-pk-Wcdgc Xfer(QC): 3 Does the Patient Walk: No and Walking Goal IS indicated Walk 10 feet (QC): 3 1 Step (curb) (QC): 3 PT Plan Problem List Problem List: Activity Tolerance, Functional Strength, Safety, Balance, Gait, Transfer, Bed Mobility, ROM Treatment/Plan Treatment Plan: Continue Plan of Care Treatment Plan: Bed Mobility, Education, Functional Activity Zofia, Functional Strength, Group Therapy, Gait, Safety, Therapeutic Exercise, Transfers Treatment Duration: Jun 02, 2020 Frequency: 6 times per week Patient and/or Family Agrees t: Yes Time/GCodes Time In: 245 Time Out: 305 Total Billed Treatment Time: 20 Total Billed Treatment 1 visit Eval Moderate Complexity (20') JUAN PABLO BARKER PT May 19, 2020 15:19
[2020-05-19] MEDS ORDERED: NS (IVPB) 250 ML ONE (15:22)
--- NOTE | 2020-05-19 15:24 | NUR ---
CM/SS following patient for social service consult. Per chart review, patient is pleasantly confused. CM/SS will follow back up with patient on Friday.
--- NOTE | 2020-05-19 15:31 | NUR ---
"RD ASSESSMENT PMHx: afib; endocarditis; HTN; stroke PT INTERACTION: Note pt is currently in COVID isolation, per chart review. Note all diet information for consult for MST score is per Jessika RN or per chart review. Jessika states current appetite appears poor. Note no meals have been recorded, per chart review. Jessika states pt has some issues with constipation, and that the pt stated they had not had a BM x1week. Note pt currently on bowel regimen of senna BID, per chart review. Note unable to determine recent wt hx, per chart review. Note unable to conduct visual assessment d/t isolation precautions. Note unable to determine at this time if pt meets criteria for malnutrition per ASPEN guidelines. ABNORMAL NUTRITION-RELATED LAB VALUES LOW: Ca 7.9; Pro 6.2; alb 2.9 HIGH: Na 148; Cl 114; BUN 45; cr 1.45; AST 88; Est. kcal needs: 0079-4996 kcal | 20-25 kcal/kg Est. Pro needs: 72-86 g Pro | 1.0-1.2 g Pro/kg PES STATEMENT: Inadequate oral intake (NI-2.1) related to loss of appetite and constipation, as evidenced by chart review and communication with RN. INTERVENTION: Continue with current diet order of Heart Healthy diet. Continue with current supplementation order of Ensure Enlive with meals TID, for increased kcal intake. Provides 350 kcal and 20 g Pro per serving. Will continue to follow and reassess as pt needs, intake, and status change. Lazaro Balderrama, MS RD LD"
[2020-05-19] MEDS: PHENYTOIN 100 MG (DILANTIN) CAP PO SCH (19:36)
[2020-05-20] VITALS (9 sets, daily range): BP systolic 91–116; BP diastolic 49–75
[2020-05-20] MEDS: NS IV 1000 ML 1,000 ML IV SCH ×3 (00:37→21:28)
[2020-05-20] MEDS: RT-ALBUTEROL INHALER HFA (VENTOLIN HFA) 18 GM IH SCH ×6 (02:32→22:16)
[2020-05-20] MEDS: dilTIAZem DRIP PRE-MIX 125 ML IV SCH (03:40)
[2020-05-20 06:21] LABS: BASOPHILS % (AUTO) 0 % (0-10); EOSINOPHILS % (AUTO) 0 % (0-10); HEMATOCRIT 33 % (40-54); HEMOGLOBIN 10.4 g/dL (13.3-17.7); LYMPHOCYTES # (AUTO) 0.4 10^3/uL (1.0-4.0); LYMPHOCYTES % (AUTO) 5 % (12-44); MEAN CORPUSCULAR HEMOGLOBIN 30 pg (25-34); MEAN CORPUSCULAR HGB CONC 32 g/dL (32-36); MEAN CORPUSCULAR VOLUME 96 fL (80-99); MEAN PLATELET VOLUME 9.1 fL (9.0-12.2); MONOCYTES # (AUTO) 0.5 10^3/uL (0.0-1.0); MONOCYTES % (AUTO) 7 % (0-12); NEUTROPHILS # (AUTO) 6.8 10^3/uL (1.8-7.8); NEUTROPHILS % (AUTO) 88 % (42-75); PLATELET COUNT 411 10^3/uL (130-400); WHITE BLOOD COUNT 7.8 10^3/uL (4.3-11.0)
[2020-05-20 06:30] LABS: ALBUMIN 2.6 GM/DL (3.2-4.5); CHLORIDE 110 MMOL/L (98-107); POTASSIUM 4.5 MMOL/L (3.6-5.0); SODIUM 140 MMOL/L (135-145)
[2020-05-20 06:32] LABS: CALCIUM 8.5 MG/DL (8.5-10.1)
[2020-05-20 06:33] LABS: GLUCOSE 170 MG/DL (70-105); TOTAL PROTEIN 5.6 GM/DL (6.4-8.2)
[2020-05-20 06:34] LABS: CARBON DIOXIDE 21 MMOL/L (21-32)
[2020-05-20 06:35] LABS: BILIRUBIN,TOTAL 0.3 MG/DL (0.1-1.0)
[2020-05-20 06:36] LABS: ALKALINE PHOSPHATASE 60 U/L (40-136); CREATININE SERUM 0.98 MG/DL (0.60-1.30); GFR ESTIMATED > 60
[2020-05-20 06:38] LABS: BUN/CREATININE RATIO 34
[2020-05-20 06:39] LABS: ALANINE AMINOTRANSFERASE 31 U/L (0-55); MAGNESIUM 2.1 MG/DL (1.6-2.4)
[2020-05-20 06:57] LABS: BAND NEUTROPHILS 5 %; LYMPHOCYTES % (MANUAL) 8 %; MONOCYTES % (MANUAL) 5 %; NEUTROPHILS % (MANUAL) 82 %
[2020-05-20 06:58] LABS: RBC MORPH NORMAL; TOXIC GRANULATION/VACUOLAZATIO 1+
[2020-05-20] MEDS: SOTALOL 80 MG (BETAPACE) TAB PO SCH ×2 (08:55→21:29)
[2020-05-20] MEDS: APIXABAN 5 MG (ELIQUIS) TABLET PO SCH ×2 (08:56→21:29)
[2020-05-20] MEDS: SENNA W/DOCUSATE (SENOKOT S) TABLET PO SCH ×3 (08:56→21:32)
--- NOTE | 2020-05-20 12:59 | Progress Note - Hospitalist ---
Subjective HPI/CC On Admission Date Seen by Provider: May 20, 2020 Time Seen by Provider: 10:30 Gallito Barros Jr is a 69-year-old male with past medical history of hypertension, COPD, atrial fibrillation, GERD, who presented with weakness. He says he has been sick for at least 2 weeks. He reports having a cough. He is a little bit short of breath. He just feels tired. He says he has not been eating and drinking very well. He denies any chest pain. He denies any palpitations. He denies any abdominal pain. He denies any nausea or vomiting. Subjective/Events-last exam He reports feeling better. He denies trouble breathing. He denies chest pain. He has been eating and drinking. He has no other complaints or concerns. Objective Exam Vital Signs Vital Signs Date Time Temp Pulse Resp B/P (MAP) Pulse Ox O2 Delivery O2 Flow Rate FiO2 05/20/20 12:45 83 05/20/20 11:07 95 Nasal Cannula 3.00 05/20/20 08:01 37.0 36 91/49 (63) 05/19/20 02:44 32 Capillary Refill : Less Than 3 Seconds General Appearance: No Apparent Distress, Chronically ill Respiratory: Lungs Clear, Normal Breath Sounds, No Respiratory Distress Cardiovascular: No Edema, Irregularly Irregular (regular rate) Gastrointestinal: Normal Bowel Sounds, Non Tender, Soft Extremity: Non Tender, No Pedal Edema Neurologic/Psychiatric: Alert, Oriented x3, Normal Mood/Affect, Motor Weakness Skin: Normal Color, Warm/Dry Results/Procedures Lab Laboratory Tests 05/20/20 05:45 Patient resulted labs reviewed. Imaging: Reviewed Imaging Report Assessment/Plan Assessment and Plan Assess & Plan/Chief Complaint Paroxysmal atrial fibrillation with rapid ventricular response Elevated troponin Cardiology consulted, appreciate assistance Transitioned to oral Cardizem Continue digoxin and sotalol Continue Eliquis Transfer to 4th floor Acute respiratory failure due to COVID-19 COVID MARVIN positive Procal remains normal Decadron s/p 1 unit convalescent plasma HTN GERD COPD Continue home meds once med rec completed DVT Prophylaxis: already receiving therapeutic anticoagulation BLAIR, resolved Viral sepsis, resolved Diagnosis/Problems Diagnosis/Problems (1) Atrial fibrillation with rapid ventricular response Status: Acute (2) Acute respiratory failure due to COVID-19 Status: Acute (3) COVID-19 Status: Acute (4) HTN (hypertension) Status: Chronic (5) GERD (gastroesophageal reflux disease) Status: Chronic (6) Viral sepsis Status: Resolved Resolution Date/Time: 05/20/20 @ 12:58 (7) BLAIR (acute kidney injury) Status: Resolved Resolution Date/Time: 05/20/20 @ 12:59 Clinical Quality Measures DVT/VTE Risk/Contraindication: Risk Factor Score Per Nursin RFS Level Per Nursing on Admit: 4+=Very High Contraindications-Pharm: Other *list below* Other: already on home CAMILLA Cherry MD May 20, 2020 12:59
--- NOTE | 2020-05-20 13:23 | Physical Therapy Daily Note ---
PT Daily Note-Current Subjective Pt. states he is getting ready to transfer to 4th floor, only agrees to sitting at edge of bed. He states "I'm afraid I will fall." Mental Status Patient Orientation: Person Transfers SCALE: Activities may be completed with or without assistive devices. 5-Jtquxgnsww-whteftv completes the activity by him/herself with no assistance from a helper. 5-Set-up or Clean-up Assistance-helper sets up or cleans up; patient completes activity. [place] assists only prior to or following the activity. 4-Supervision or Touching Assistance-helper provides verbal cues and/or touching/steadying and/or contact guard assistance as patient completes activity. Assistance may be provided throughout the activity or intermittently. 3-Partial/Moderate Assistance-helper does LESS THAN HALF the effort. [place] lifts, holds or supports trunk or limbs, but provides less than half the effort. 2-Substantial/Maximal Assistance-helper does MORE THAN HALF the effort. [place] lifts or holds trunk or limbs and provides more than half the effort. 2-Dricxmdri-jfakqk does ALL the effort. Patient does none of the effort to complete the activity. Or, the assistance of 2 or more helpers is required for the patient to complete the activity. If activity was not attempted, code reason: 7-Patient Refused. 9-Not Applicable-not attempted and the patient did not perform the activity before the current illness, exacerbation or injury. 10-Not Attempted due to Environmental Limitations-(lack of equipment, weather restraints, etc.). 88-Not Attempted due to Medical Conditions or Safety Concerns. Roll Left & Right (QC): 2 Sit to Lying (QC): 2 Lying to Sitting/Side of Bed(Q: 2 Treatments transfers to edge of bed Assessment Current Status: Fair Progress Pt. continues to require max A for all transfers. He has very little active movement for transfers in either upper or lower extremities. Pt. returned to supine position in bed with call light and all needs met. PT Group Home Goals Service Clerk Goals PT Service Clerk Goals Time Frame: Jun 02, 2020 Roll Left & Right (QC): 4 Sit to Lying (QC): 4 Lying-Sitting on Side/Bed(QC): 4 Sit to Stand (QC): 3 Chair/Wbu-mg-Ussbx Xfer(QC): 3 Does the Patient Walk: No and Walking Goal IS indicated Walk 10 feet (QC): 3 1 Step (curb) (QC): 3 PT Plan Treatment/Plan Treatment Plan: Continue Plan of Care Treatment Plan: Bed Mobility, Education, Functional Activity Zofia, Functional Strength, Group Therapy, Gait, Safety, Therapeutic Exercise, Transfers Treatment Duration: Jun 02, 2020 Frequency: 6 times per week Patient and/or Family Agrees t: Yes Time/GCodes Time In: 1145 Time Out: 1158 Total Billed Treatment Time: 13 Total Billed Treatment 1, FA 13' KRISTEN GARCIA PT May 20, 2020 13:23
[2020-05-20] MEDS: ALPRAZolam 0.25 MG (XANAX) TAB PO PRN (21:29)
[2020-05-20] MEDS: PHENYTOIN 100 MG (DILANTIN) CAP PO SCH (21:29)
--- NOTE | 2020-05-20 23:12 | NUR ---
ASSUMED CARE OF PT AT THIS TIME. SEE ASSESSMENT.
[2020-05-21] VITALS (10 sets, daily range): BP systolic 79–128; BP diastolic 52–76
[2020-05-21] MEDS: NS IV 1000 ML 1,000 ML IV SCH (02:22)
[2020-05-21] MEDS: RT-ALBUTEROL INHALER HFA (VENTOLIN HFA) 18 GM IH SCH ×5 (02:25→19:36)
--- NOTE | 2020-05-21 03:40 | NUR ---
ICU CALL THIS RN TO INFORM PT HR ON TELEMETRY IS DROPPING IN TO THE 40'S. THIS RN ENTERS ROOM PT IS SLEEPING. PT STATES HE FEELS FINE. B/P 79/[address] HUIZAR CALLED AND INFORMED OF HR AND BLOOD PRESSURE. NO NEW ORDERS AT THIS TIME.
[2020-05-21 05:05] LABS: CHLORIDE 111 MMOL/L (98-107); POTASSIUM 4.3 MMOL/L (3.6-5.0); SODIUM 141 MMOL/L (135-145)
[2020-05-21 05:06] LABS: CALCIUM 7.9 MG/DL (8.5-10.1)
[2020-05-21 05:07] LABS: GLUCOSE 123 MG/DL (70-105)
[2020-05-21 05:08] LABS: CARBON DIOXIDE 20 MMOL/L (21-32)
[2020-05-21 05:10] LABS: CREATININE SERUM 0.75 MG/DL (0.60-1.30); GFR ESTIMATED > 60
[2020-05-21 05:11] LABS: BUN/CREATININE RATIO 33
[2020-05-21] MEDS: APIXABAN 5 MG (ELIQUIS) TABLET PO SCH ×2 (09:12→21:54)
[2020-05-21] MEDS: SENNA W/DOCUSATE (SENOKOT S) TABLET PO SCH ×2 (09:12→21:53)
[2020-05-21] MEDS: SOTALOL 80 MG (BETAPACE) TAB PO SCH ×2 (09:13→21:54)
--- NOTE | 2020-05-21 13:12 | Progress Note - Hospitalist ---
Subjective HPI/CC On Admission Date Seen by Provider: May 21, 2020 Time Seen by Provider: 11:10 Gallito Barros Jr is a 69-year-old male with past medical history of hypertension, COPD, atrial fibrillation, GERD, who presented with weakness. He says he has been sick for at least 2 weeks. He reports having a cough. He is a little bit short of breath. He just feels tired. He says he has not been eating and drinking very well. He denies any chest pain. He denies any palpitations. He denies any abdominal pain. He denies any nausea or vomiting. Subjective/Events-last exam He is feeling better today. He denies trouble breathing. He still has a cough. He denies fever. He wants to get up and try to move around or get to his chair. He wants a pair of pants. Objective Exam Vital Signs Vital Signs Date Time Temp Pulse Resp B/P (MAP) Pulse Ox O2 Delivery O2 Flow Rate FiO2 05/21/20 12:56 77 05/21/20 10:58 93 Nasal Cannula 1.00 05/21/20 08:00 36.2 18 115/60 (78) 05/19/20 02:44 32 Capillary Refill : Less Than 3 Seconds General Appearance: No Apparent Distress, WD/WN Respiratory: Lungs Clear, Normal Breath Sounds, No Respiratory Distress Cardiovascular: Regular Rate, Rhythm, No Edema, No Murmur Gastrointestinal: Normal Bowel Sounds, Non Tender, Soft Extremity: Normal Inspection, Non Tender, No Pedal Edema Neurologic/Psychiatric: Alert, Oriented x3, No Motor/Sensory Deficits, Normal Mood/Affect Skin: Normal Color, Warm/Dry Results/Procedures Lab Laboratory Tests 05/21/20 04:30 Patient resulted labs reviewed. Imaging: Reviewed Imaging Report Assessment/Plan Assessment and Plan Assess & Plan/Chief Complaint Acute respiratory failure due to COVID-19 COVID MARVIN positive Decadron s/p 1 unit convalescent plasma Weaning supplemental oxygen as needed Paroxysmal atrial fibrillation with rapid ventricular response Elevated troponin Cardiology consulted, appreciate assistance Cardizem Digoxin Sotalol Eliquis HTN GERD COPD Continue home meds DVT Prophylaxis: already receiving therapeutic anticoagulation BLAIR, resolved Viral sepsis, resolved Diagnosis/Problems Diagnosis/Problems (1) Atrial fibrillation with rapid ventricular response Status: Acute (2) Acute respiratory failure due to COVID-19 Status: Acute (3) COVID-19 Status: Acute (4) HTN (hypertension) Status: Chronic (5) GERD (gastroesophageal reflux disease) Status: Chronic (6) Viral sepsis Status: Resolved Resolution Date/Time: 05/20/20 @ 12:58 (7) BLAIR (acute kidney injury) Status: Resolved Resolution Date/Time: 05/20/20 @ 12:59 Clinical Quality Measures DVT/VTE Risk/Contraindication: Risk Factor Score Per Nursin RFS Level Per Nursing on Admit: 4+=Very High Contraindications-Pharm: Other *list below* Other: already on home CAMILLA Cherry MD May 21, 2020 13:12
[2020-05-21] MEDS ORDERED: RT-ALBUTEROL INHALER HFA (VENTOLIN HFA) 18 GM IH PRN (21:00)
[2020-05-21] MEDS: PHENYTOIN 100 MG (DILANTIN) CAP PO SCH (21:54)
[2020-05-21] MEDS: MONTELUKAST 10 MG (SINGULAIR) TAB PO SCH (21:54)
[2020-05-21] MEDS: FLUTICASONE NASAL SPRAY (FLONASE) 16 GM BTL NS SCH (21:54)
[2020-05-21] MEDS: AMITRIPTYLINE 25 MG (ELAVIL) TAB PO SCH (21:54)
[2020-05-21] MEDS: busPIRone 15 MG (BUSPAR) TABLET PO SCH (21:55)
[2020-05-21] MEDS: ADVAIR HFA 115/21 MCG INHALER 8 GM IH SCH (21:58)
[2020-05-22 00:14] VITALS: BP 113/57
[2020-05-22 03:45] VITALS: BP 121/74
[2020-05-22 06:27] LABS: BASOPHILS % (AUTO) 0 % (0-10); EOSINOPHILS % (AUTO) 0 % (0-10); HEMATOCRIT 34 % (40-54); HEMOGLOBIN 10.8 g/dL (13.3-17.7); LYMPHOCYTES # (AUTO) 0.6 10^3/uL (1.0-4.0); LYMPHOCYTES % (AUTO) 6 % (12-44); MEAN CORPUSCULAR HEMOGLOBIN 30 pg (25-34); MEAN CORPUSCULAR HGB CONC 32 g/dL (32-36); MEAN CORPUSCULAR VOLUME 95 fL (80-99); MEAN PLATELET VOLUME 9.2 fL (9.0-12.2); MONOCYTES # (AUTO) 0.6 10^3/uL (0.0-1.0); MONOCYTES % (AUTO) 6 % (0-12); NEUTROPHILS # (AUTO) 8.5 10^3/uL (1.8-7.8); NEUTROPHILS % (AUTO) 87 % (42-75); PLATELET COUNT 500 10^3/uL (130-400); WHITE BLOOD COUNT 9.8 10^3/uL (4.3-11.0)
[2020-05-22 06:40] LABS: ALBUMIN 2.7 GM/DL (3.2-4.5)
[2020-05-22 06:41] LABS: CHLORIDE 108 MMOL/L (98-107); POTASSIUM 4.2 MMOL/L (3.6-5.0); SODIUM 141 MMOL/L (135-145)
[2020-05-22 06:42] LABS: CALCIUM 8.3 MG/DL (8.5-10.1)
[2020-05-22 06:43] LABS: GLUCOSE 113 MG/DL (70-105); TOTAL PROTEIN 5.7 GM/DL (6.4-8.2)
[2020-05-22 06:44] LABS: CARBON DIOXIDE 24 MMOL/L (21-32)
[2020-05-22 06:45] LABS: BILIRUBIN,TOTAL 0.3 MG/DL (0.1-1.0)
[2020-05-22 06:46] LABS: ALKALINE PHOSPHATASE 64 U/L (40-136)
[2020-05-22 06:47] LABS: CREATININE SERUM 0.78 MG/DL (0.60-1.30); GFR ESTIMATED > 60
[2020-05-22 06:48] LABS: BUN/CREATININE RATIO 33
[2020-05-22 06:49] LABS: ALANINE AMINOTRANSFERASE 35 U/L (0-55)
[2020-05-22] MEDS: RT-ALBUTEROL INHALER HFA (VENTOLIN HFA) 18 GM IH SCH ×4 (07:26→18:17)
[2020-05-22] MEDS: ADVAIR HFA 115/21 MCG INHALER 8 GM IH SCH ×2 (07:26→18:17)
[2020-05-22] MEDS: UMECLIDINIUM BROMIDE (INCRUSE ELLIPTA) 7'S IH SCH (07:27)
[2020-05-22 08:00] VITALS: BP 110/57
[2020-05-22] MEDS: APIXABAN 5 MG (ELIQUIS) TABLET PO SCH ×2 (09:56→20:08)
[2020-05-22] MEDS: FUROSEMIDE 40 MG (LASIX) TAB PO SCH (09:56)
[2020-05-22] MEDS: SENNA W/DOCUSATE (SENOKOT S) TABLET PO SCH ×2 (09:56→20:08)
[2020-05-22] MEDS: PANTOPRAZOLE 20 MG TABLET (PROTONIX) PO SCH (09:57)
[2020-05-22] MEDS: SOTALOL 80 MG (BETAPACE) TAB PO SCH ×2 (09:59→21:09)
[2020-05-22] MEDS: busPIRone 15 MG (BUSPAR) TABLET PO SCH ×2 (09:59→20:08)
[2020-05-22] MEDS: ENALAPRIL 2.5 MG (VASOTEC) TAB PO SCH (10:00)
[2020-05-22 12:00] VITALS: BP 108/71
--- NOTE | 2020-05-22 12:26 | Progress Note - Hospitalist ---
Subjective HPI/CC On Admission Date Seen by Provider: May 22, 2020 Time Seen by Provider: 12:24 Gallito Barros Jr is a 69-year-old male with past medical history of hypertension, COPD, atrial fibrillation, GERD, who presented with weakness. He says he has been sick for at least 2 weeks. He reports having a cough. He is a little bit short of breath. He just feels tired. He says he has not been eating and drinking very well. He denies any chest pain. He denies any palpitations. He denies any abdominal pain. He denies any nausea or vomiting. Objective Exam Vital Signs Vital Signs Date Time Temp Pulse Resp B/P (MAP) Pulse Ox O2 Delivery O2 Flow Rate FiO2 05/22/20 09:59 89 05/22/20 09:00 Nasal Cannula 3.00 05/22/20 08:00 36.2 20 110/57 (74) 91 05/21/20 20:28 32 Capillary Refill : Less Than 3 Seconds General Appearance: No Apparent Distress, Chronically ill Respiratory: Lungs Clear, No Respiratory Distress Cardiovascular: Regular Rate, Rhythm, No Murmur Neurologic/Psychiatric: Alert, Oriented x3 Results/Procedures Lab Laboratory Tests 05/22/20 06:16 Patient resulted labs reviewed. Imaging: Reviewed Imaging Report Assessment/Plan Assessment and Plan Assess & Plan/Chief Complaint Acute respiratory failure due to COVID-19 COVID MARVIN positive Decadron s/p 1 unit convalescent plasma Now off oxygen Still remains quite debilitated, will likely need NH discharge but is from home so can consider IRU if able to participate that much Paroxysmal atrial fibrillation with rapid ventricular response- RVR Elevated troponin Cardiology consulted, appreciate assistance Sagar Digoxin Sotalol Eliquis HTN GERD COPD Continue home meds DVT Prophylaxis: already receiving therapeutic anticoagulation BLAIR, resolved Viral sepsis, resolved Diagnosis/Problems Diagnosis/Problems (1) Acute respiratory failure due to COVID-19 Status: Acute (2) Viral sepsis Status: Resolved Resolution Date/Time: 05/20/20 @ 12:58 (3) COVID-19 Status: Acute (4) Atrial fibrillation with rapid ventricular response Status: Acute (5) HTN (hypertension) Status: Chronic (6) COPD (chronic obstructive pulmonary disease) Qualifiers: COPD type: COPD with acute lower respiratory infection Qualified Codes: J44.0 - Chronic obstructive pulmonary disease with (acute) lower respiratory infection Clinical Quality Measures DVT/VTE Risk/Contraindication: Risk Factor Score Per Nursin RFS Level Per Nursing on Admit: 4+=Very High Contraindications-Pharm: Other *list below* Other: already on home KEV Brown MD May 22, 2020 12:26
--- NOTE | 2020-05-22 13:30 | Occupational Ther Daily Note ---
OT Current Status-Daily Note Subjective Pt alert, lying in bed. Pt required max encouragement to participate in therapy. Pt states that he wants to go home. Mental Status/Objective Patient Orientation: Person, Place, Time, Situation Attachments: IV, Oxygen (would not leave it on) ADL-Treatment Therapy Code Descriptions/Definitions Functional [place] Measure: 0=Not Assessed/NA 4=Minimal Assistance 1=Total Assistance 5=Supervision or Setup 2=Maximal Assistance 6=Modified [place] 3=Moderate Assistance 7=Complete IndependenceSCALE: Activities may be completed with or without assistive devices. 4-Kgdyjgzwxe-xamrpqp completes the activity by him/herself with no assistance from a helper. 5-Set-up or Clean-up Assistance-helper sets up or cleans up; patient completes activity. [place] assists only prior to or following the activity. 4-Supervision or Touching Assistance-helper provides verbal cues and/or touching/steadying and/or contact guard assistance as patient completes activity. Assistance may be provided throughout the activity or intermittently. 3-Partial/Moderate Assistance-helper does LESS THAN HALF the effort. [place] lifts, holds or supports trunk or limbs, but provides less than half the effort. 2-Substantial/Maximal Assistance-helper does MORE THAN HALF the effort. [place] lifts or holds trunk or limbs and provides more than half the effort. 1-Loqhtpnjq-xxgdfi does ALL the effort. Patient does none of the effort to complete the activity. Or, the assistance of 2 or more helpers is required for the patient to complete the activity. If activity was not attempted, code reason: 7-Patient Refused. 9-Not Applicable-not attempted and the patient did not perform the activity before the current illness, exacerbation or injury. 10-Not Attempted due to Environmental Limitations-(lack of equipment, weather restraints, etc.). 88-Not Attempted due to Medical Conditions or Safety Concerns. Other Treatment Pt refused to complete any ADL tasks. Pt kept asking when he could go home. L UE exercise against gravity completed 3 exercise 10 reps. APROM with R UE, decreased ROM throughout. Increased flexion of wrist and fingers of R hand. After therapy, pt lying in bed with call light/phone within reach. All needs met. OT Residential Goals Occ Therapist Goals Time Frame: May 26, 2020 Eating (QC): 6 Oral Hygiene (QC): 6 Toileting Hygiene (QC): 3 Shower/Bathe Self (QC): 3 Upper Body Dressing (QC): 4 Lower Body Dressing (QC): 2 On/Off Footwear (QC): 2 Additional Goals: 1-Demonstrate ADL Tasks, 2-Verbalize Understanding, 3- ImproveStrength/Zofia 1=Demonstrate adherence to instructed precautions during ADL tasks. 2=Patient will verbalize/demonstrate understanding of assistive devices/modifications for ADL. 3=Patient will improve strength/tolerance for activity to enable patient to perform ADL's. OT Education/Plan Problem List/Assessment Assessment: Decreased Activ Tolerance, Impaired Self-Care Skills, Restricted Funct UE ROM Discharge Recommendations Plan/Recommendations: Continue POC Treatment Plan/Plan of Care Patient would benefit from OT for education, treatment and training to promote independence in ADL's, mobility, safety and/or upper extremity function for ADL's. Plan of Care: ADL Retraining, Functional Mobility, Orthotic Fitting/Training, UE Funct Exercise/Act, UE Neuromus Re-Ed/Coord Treatment Duration: May 26, 2020 Frequency: 5 times per week Estimated Hrs Per Day: .25 hour per day Agreement: Yes Rehab Potential: Fair Time/GCodes Start Time: 11:20 Stop Time: 11:30 Total Time Billed (hr/min): 10 Billed Treatment Time 1 visit-EX 1 (10 min) JOSEFINA KATZ May 22, 2020 13:30
--- NOTE | 2020-05-22 14:00 | Physician Query Clarification ---
PQ-Further Specificity Admission/Discharge Admission Date: May 18, 2020 at 21:02 Discharge Date: Dr. Fowler, The medical record reflects the following clinical scenario: History/Risk Factors: Viral Sepsis COVID 19 Acute respiratory failure due to COVID 19 Acute Kidney injury Clinical Findings: T 36.4, P 123, R 22, BP 123/84, eGFR 36, Creatinine 1.89. Treatment:IV Decadron 6 mg, Convalescent Plasma 05/19, IV Sodium Chloride, Question: Can you further specify Viral Sepsis per the clinical indicators above? Please document a response in the Progress Notes or Discharge Summary. 1. Viral Sepsis due to COVID 19 with severe sepsis. 2. Viral Sepsis due to COVID 19 without severe sepsis. 3. Other, with explanation of the clinical findings. 4. Clinically undetermined, no explanation for the clinical findings. PHYSICIAN RESPONSE Can you specify per above: 2 Please remember a lack of response to the above will prompt a phone page by CDI/Coding staff. In responding to this query, please exercise your independent professional judgment. The purpose of this communication is to more accurately reflect the complexity of your patients condition. The fact that a question is asked does not imply that any particular answer is desired or expected. Thank you for your timely response to this clarification. Requestors name: Yani Munoz [facility] THIS PHYSICIAN QUERY FORM IS A PERMANENT PART OF THE MEDICAL RECORD YANI MUNOZ May 22, 2020 14:00 KEV FOWLER MD May 22, 2020 14:49
--- NOTE | 2020-05-22 15:19 | Physical Therapy Daily Note ---
PT Daily Note-Current Subjective Patient found with his LE's hanging off the bed. He states he needs to use the restroom for a BM. Noted, incontinent BM in bed. Mental Status Patient Orientation: Person, Time, Situation Attachments: Oxygen, Trevizo Catheter Transfers SCALE: Activities may be completed with or without assistive devices. 0-Ctiehshqyd-jcmlqfr completes the activity by him/herself with no assistance from a helper. 5-Set-up or Clean-up Assistance-helper sets up or cleans up; patient completes activity. [place] assists only prior to or following the activity. 4-Supervision or Touching Assistance-helper provides verbal cues and/or touching/steadying and/or contact guard assistance as patient completes activity. Assistance may be provided throughout the activity or intermittently. 3-Partial/Moderate Assistance-helper does LESS THAN HALF the effort. [place] lifts, holds or supports trunk or limbs, but provides less than half the effort. 2-Substantial/Maximal Assistance-helper does MORE THAN HALF the effort. [place] lifts or holds trunk or limbs and provides more than half the effort. 3-Lcoqdkhce-czaqad does ALL the effort. Patient does none of the effort to complete the activity. Or, the assistance of 2 or more helpers is required for the patient to complete the activity. If activity was not attempted, code reason: 7-Patient Refused. 9-Not Applicable-not attempted and the patient did not perform the activity before the current illness, exacerbation or injury. 10-Not Attempted due to Environmental Limitations-(lack of equipment, weather restraints, etc.). 88-Not Attempted due to Medical Conditions or Safety Concerns. Sit to Lying (QC): 3 Lying to Sitting/Side of Bed(Q: 3 Sit to Stand (QC): 3 Toilet Transfer (QC): 3 Gait Training Distance: 25' x 2 Walk 10 feet (QC): 3 Gait Assistive Device: FWW PT to hold right hand on FWW handle due to deformity Assessment Patient incontinent BM requiring dependent assist to cleanse and change while on the toilet. Patient improving with ambulation/mobility PT Assisted Goals Assisted Goals PT Loom Tuner Goals Time Frame: Jun 02, 2020 Roll Left & Right (QC): 4 Sit to Lying (QC): 4 Lying-Sitting on Side/Bed(QC): 4 Sit to Stand (QC): 3 Chair/Tfi-pn-Tcxga Xfer(QC): 3 Does the Patient Walk: No and Walking Goal IS indicated Walk 10 feet (QC): 3 1 Step (curb) (QC): 3 PT Plan Treatment/Plan Treatment Plan: Continue Plan of Care Treatment Plan: Bed Mobility, Education, Functional Activity Zofia, Functional Strength, Group Therapy, Gait, Safety, Therapeutic Exercise, Transfers Treatment Duration: Jun 02, 2020 Frequency: 6 times per week Patient and/or Family Agrees t: Yes Time/GCodes Time In: 1325 Time Out: 1350 Total Billed Treatment Time: 25 Total Billed Treatment 1 visit FA x 2 25 min ROSEMARY SERRA PT May 22, 2020 15:19
[2020-05-22 16:57] VITALS: BP 105/63
--- NOTE | 2020-05-22 17:03 | NUR ---
ANJU/RUBINA visited with patient for social service consult. ANJU/RUBINA spoke with the patient's physical therapist. She reports the patient can walk but cannot get out of bed without assistance. The patient states he sit's in his chair at home. He would not be able to get up from the chair. CM/SS attempted multiple times to get a hold of the patient via phone. The respiratory therapist assisted the patient in answering the phone. The patient reports that he is doing fine and is ready to return home. ANJU/SS discussed with the patient that he would benefit from short term rehabilitation to build his strength before returning home. The patient was agreeable with plan. CM/SS provided the patient with a patient preference list. He chose [facility]; however, they do not accept Covid positive patients. ANJU/SS discussed second choices for placement. He chose [facility]. ANJU/SS contacted [facility] and sent referral. ANJU/SS also contacted Brissa with [facility] to assess if patient would meet criteria. October will follow due to patient being Covid positive and not being out of isolation until the . ANJU/RUBINA will continue to follow.
[2020-05-22] MEDS: FLUTICASONE NASAL SPRAY (FLONASE) 16 GM BTL NS SCH (20:05)
[2020-05-22] MEDS: MONTELUKAST 10 MG (SINGULAIR) TAB PO SCH (20:06)
[2020-05-22] MEDS: PHENYTOIN 100 MG (DILANTIN) CAP PO SCH (20:08)
[2020-05-22] MEDS: AMITRIPTYLINE 25 MG (ELAVIL) TAB PO SCH (20:08)
[2020-05-22 21:00] VITALS: BP 112/70
[2020-05-23 00:02] VITALS: BP 106/63
[2020-05-23 03:58] VITALS: BP 101/67
[2020-05-23 06:31] LABS: CHLORIDE 106 MMOL/L (98-107); POTASSIUM 4.1 MMOL/L (3.6-5.0); SODIUM 139 MMOL/L (135-145)
[2020-05-23 06:32] LABS: CALCIUM 7.9 MG/DL (8.5-10.1)
[2020-05-23 06:33] LABS: GLUCOSE 120 MG/DL (70-105)
[2020-05-23 06:34] LABS: CARBON DIOXIDE 25 MMOL/L (21-32)
[2020-05-23 06:37] LABS: BUN/CREATININE RATIO 37; CREATININE SERUM 0.89 MG/DL (0.60-1.30); GFR ESTIMATED > 60
[2020-05-23] MEDS: RT-ALBUTEROL INHALER HFA (VENTOLIN HFA) 18 GM IH SCH ×5 (07:30→23:31)
[2020-05-23] MEDS: ADVAIR HFA 115/21 MCG INHALER 8 GM IH SCH ×2 (07:35→22:57)
[2020-05-23] MEDS: UMECLIDINIUM BROMIDE (INCRUSE ELLIPTA) 7'S IH SCH (07:37)
[2020-05-23 08:00] VITALS: BP 118/78
[2020-05-23] MEDS: FUROSEMIDE 40 MG (LASIX) TAB PO SCH (08:25)
[2020-05-23] MEDS: PANTOPRAZOLE 20 MG TABLET (PROTONIX) PO SCH (08:25)
[2020-05-23] MEDS: APIXABAN 5 MG (ELIQUIS) TABLET PO SCH ×2 (08:25→21:27)
[2020-05-23] MEDS: ENALAPRIL 2.5 MG (VASOTEC) TAB PO SCH (08:25)
[2020-05-23] MEDS: SOTALOL 80 MG (BETAPACE) TAB PO SCH ×2 (08:26→21:39)
[2020-05-23] MEDS: busPIRone 15 MG (BUSPAR) TABLET PO SCH ×2 (08:27→21:27)
[2020-05-23] MEDS: ALPRAZolam 0.25 MG (XANAX) TAB PO PRN (08:27)
[2020-05-23] MEDS: SENNA W/DOCUSATE (SENOKOT S) TABLET PO SCH ×2 (08:28→21:27)
--- NOTE | 2020-05-23 11:00 | NUR ---
Notified by systems protection technician that the patients heart rate was dropping down into the thirties. Went into the patients room to assess. Heart rate 43, BP 94/67, oxygen saturation 87. Patient is drowsy but when asked states he feels good. Increased patients oxygen flow to 5L, contacted Dr. Bustamante whom informed me to contact Dr. Fowler. Contacted Dr. Fowler, she stated that she would be there shortly and to contact Dr. Stiles. Was unable to contact Dr. Stiles at this time. Dr. Fowler contact Dr. Marroquin whom requested a STAT EKG. EKG acquired. Asked Dr. Fowler if she would like me to fax it to doc. Patient is alert but drowsy. Dr. Fowler stated to just continue to monitor for now.
--- NOTE | 2020-05-23 11:35 | NUR ---
Patients status returned to a stable level. Will continue to monitor. Dr. Fowler altered patients medication to prevent future occurrence of bradycardia
[2020-05-23 12:00] VITALS: BP 114/65
--- NOTE | 2020-05-23 13:05 | NUR ---
ANJU/RUBINA follow up. Plan: Patient will discharge tomorrow 05/24 to [facility]. CM/SS contacted [facility] to check on status for referral. [facility] reports they will accept patient. CM/SS updated the patient's physician. ANJU/SS contacted next of kin Jazzmine Mahoney to give an update. She gave this sw the number she had for the patient's mother. However, the number is out of service. CM/SS will continue to follow. Addendum: 05/23/20 at 1533 by BRENT ACUNA flower picker time of 2:00 p.m.
--- NOTE | 2020-05-23 13:20 | Occupational Ther Daily Note ---
OT Current Status-Daily Note Subjective Pt alert, lying in bed. Pt agrees to therapy. No c/o pain. Mental Status/Objective Patient Orientation: Person, Place, Time, Situation Attachments: Trevizo Catheter, IV, Oxygen, Telemetry ADL-Treatment Supine to EOB, min A. Mod A for sit to stand from EOB. Assist to place R hand on FWW and hold it in place. Pt ambulated to bathroom with assist with R hand and to manipulate FWW. Mod A for toilet transfer. Pt able to reach area to cleanse after BM, SHAFFER assisted to thoroughly cleanse. Pt ambulated back to bed, mod A to lift B LE's and position in bed. Reconnected vital sign machine. Call light/phone in reach. All needs met in room. Therapy Code Descriptions/Definitions Functional [place] Measure: 0=Not Assessed/NA 4=Minimal Assistance 1=Total Assistance 5=Supervision or Setup 2=Maximal Assistance 6=Modified [place] 3=Moderate Assistance 7=Complete IndependenceSCALE: Activities may be completed with or without assistive devices. 4-Irsmuyehyx-zfdzoba completes the activity by him/herself with no assistance from a helper. 5-Set-up or Clean-up Assistance-helper sets up or cleans up; patient completes activity. [place] assists only prior to or following the activity. 4-Supervision or Touching Assistance-helper provides verbal cues and/or touching/steadying and/or contact guard assistance as patient completes activity. Assistance may be provided throughout the activity or intermittently. 3-Partial/Moderate Assistance-helper does LESS THAN HALF the effort. [place] lifts, holds or supports trunk or limbs, but provides less than half the effort. 2-Substantial/Maximal Assistance-helper does MORE THAN HALF the effort. [place] lifts or holds trunk or limbs and provides more than half the effort. 2-Stkofbweq-icifmd does ALL the effort. Patient does none of the effort to complete the activity. Or, the assistance of 2 or more helpers is required for the patient to complete the activity. If activity was not attempted, code reason: 7-Patient Refused. 9-Not Applicable-not attempted and the patient did not perform the activity before the current illness, exacerbation or injury. 10-Not Attempted due to Environmental Limitations-(lack of equipment, weather restraints, etc.). 88-Not Attempted due to Medical Conditions or Safety Concerns. On/Off Footwear: 2 (Max A to don socks.) Toileting Hygiene (QC): 3 Toilet Transfer (QC): 2 OT Longterm Goals Longterm Goals Time Frame: May 26, 2020 Eating (QC): 6 Oral Hygiene (QC): 6 Toileting Hygiene (QC): 3 Shower/Bathe Self (QC): 3 Upper Body Dressing (QC): 4 Lower Body Dressing (QC): 2 On/Off Footwear (QC): 2 Additional Goals: 1-Demonstrate ADL Tasks, 2-Verbalize Understanding, 3- ImproveStrength/Zofia 1=Demonstrate adherence to instructed precautions during ADL tasks. 2=Patient will verbalize/demonstrate understanding of assistive devices/modifications for ADL. 3=Patient will improve strength/tolerance for activity to enable patient to perform ADL's. OT Education/Plan Problem List/Assessment Assessment: Decreased Activ Tolerance, Decreased UE Strength, Impaired Bed Mobility, Impaired Coordination, Impaired Funct Balance, Impaired Self-Care Skills, Restricted Funct UE ROM Discharge Recommendations Plan/Recommendations: Continue POC Treatment Plan/Plan of Care Patient would benefit from OT for education, treatment and training to promote independence in ADL's, mobility, safety and/or upper extremity function for ADL's. Plan of Care: ADL Retraining, Functional Mobility, Orthotic Fitting/Training, UE Funct Exercise/Act, UE Neuromus Re-Ed/Coord Treatment Duration: May 26, 2020 Frequency: 5 times per week Estimated Hrs Per Day: .25 hour per day Agreement: Yes Rehab Potential: Fair Time/GCodes Start Time: 11:40 Stop Time: 12:05 Total Time Billed (hr/min): 25 Billed Treatment Time 1 visit-ADL 2 (25 min) JOSEFINA KATZ May 23, 2020 13:20
--- NOTE | 2020-05-23 14:50 | NUR ---
"RD ASSESSMENT PMHx: afib; endocarditis; HTN; stroke; PT INTERACTION: Note pt is currently in COVID isolation, per chart review. Note all diet information for nutrition follow-up is per Mika RN or per chart review. Mika states current appetite appears okay. Note avg PO intake 41% of meals, per chart review. Mika states pt sips on nutrition supplementation of Ensure Enlive. Mika states no issues with nausea, vomiting, constipation, or diarrhea that she is aware of. Note last BM was 05/23 and pt currently on bowel regimen of senna BID, per chart review. ABNORMAL NUTRITION-RELATED LAB VALUES LOW: Ca 7.9; HIGH: BUN 33; glu 120; Est. kcal needs: 6642-0738 kcal | 15-20 kcal/kg Est. Pro needs: 80-96 g Pro | 1.0-1.2 g Pro/kg PES STATEMENT: Inadequate oral intake (NI-2.1) related to loss of appetite as evidenced by chart review, communication with RN, and avg PO intake 41% of meals. INTERVENTION: Continue with current diet order of Heart Healthy diet. Continue with current supplementation order of Ensure Enlive with meals TID, for increased kcal intake. Provides 350 kcal and 20 g Pro per serving. Will continue to follow and reassess as pt needs, intake, and status change. Lazaro Balderrama, MS NEGRA LD"
--- NOTE | 2020-05-23 14:51 | Physical Therapy Daily Note ---
PT Daily Note-Current Subjective Patient agrees to PT but refused exercises and ambulation in room. Agrees to up in chair only. Mental Status Patient Orientation: Normal For Age Attachments: Trevizo Catheter Transfers SCALE: Activities may be completed with or without assistive devices. 0-Rvsgmqjpxr-qfzbxic completes the activity by him/herself with no assistance from a helper. 5-Set-up or Clean-up Assistance-helper sets up or cleans up; patient completes activity. [place] assists only prior to or following the activity. 4-Supervision or Touching Assistance-helper provides verbal cues and/or touching/steadying and/or contact guard assistance as patient completes activity. Assistance may be provided throughout the activity or intermittently. 3-Partial/Moderate Assistance-helper does LESS THAN HALF the effort. [place] lifts, holds or supports trunk or limbs, but provides less than half the effort. 2-Substantial/Maximal Assistance-helper does MORE THAN HALF the effort. [place] lifts or holds trunk or limbs and provides more than half the effort. 8-Pekmnahpr-bvfuyj does ALL the effort. Patient does none of the effort to complete the activity. Or, the assistance of 2 or more helpers is required for the patient to complete the activity. If activity was not attempted, code reason: 7-Patient Refused. 9-Not Applicable-not attempted and the patient did not perform the activity before the current illness, exacerbation or injury. 10-Not Attempted due to Environmental Limitations-(lack of equipment, weather restraints, etc.). 88-Not Attempted due to Medical Conditions or Safety Concerns. Lying to Sitting/Side of Bed(Q: 5 Sit to Stand (QC): 4 Chair/Mgq-zm-Rllqu Xfer(QC): 4 Assessment Patient requires time to complete all functional tasks. Patient does cease treatment. PT Joinery Factory Worker Goals Assisted Goals PT Joinery Factory Worker Goals Time Frame: Jun 02, 2020 Roll Left & Right (QC): 4 Sit to Lying (QC): 4 Lying-Sitting on Side/Bed(QC): 4 Sit to Stand (QC): 3 Chair/Jba-bw-Eytsv Xfer(QC): 3 Does the Patient Walk: No and Walking Goal IS indicated Walk 10 feet (QC): 3 1 Step (curb) (QC): 3 PT Plan Treatment/Plan Treatment Plan: Continue Plan of Care Treatment Plan: Bed Mobility, Education, Functional Activity Zofia, Functional Strength, Group Therapy, Gait, Safety, Therapeutic Exercise, Transfers Treatment Duration: Jun 02, 2020 Frequency: 6 times per week Patient and/or Family Agrees t: Yes Time/GCodes Time In: 1400 Time Out: 1412 Total Billed Treatment Time: 12 Total Billed Treatment 1 visit FA 12 min ROSEMARY SERRA PT May 23, 2020 14:51
[2020-05-23 16:18] VITALS: BP 117/65
--- NOTE | 2020-05-23 16:21 | NUR ---
Pt anointed by Fr Abarca.
[2020-05-23 20:28] VITALS: BP 106/57
[2020-05-23] MEDS: MONTELUKAST 10 MG (SINGULAIR) TAB PO SCH (21:27)
[2020-05-23] MEDS: AMITRIPTYLINE 25 MG (ELAVIL) TAB PO SCH (21:28)
[2020-05-23] MEDS: PHENYTOIN 100 MG (DILANTIN) CAP PO SCH (21:28)
--- NOTE | 2020-05-23 21:41 | NUR ---
This nurse notified Dr. Cope at 2130 in regards to this pt's medication regimine. PT had incident earlier this morning as he was given beta pace 80mg, diltiazem 360 mg, and vasotec as scheduled. PT BP dropped to 90's systolic had pulse was 43, but then came back to 60's about half an hour later (previousy noted). A note was put in that this pt's medication regimine would be alterered to prevent a same occurrence, but beta pace 80 mg was scheduled for 2100 tonight, and 0900 in the am, along with the vasotec and diltiazem again. I notified Dr. Cope, and she said to give pt 20 mg of beta pace tonight, to hold vasotec in the AM, and to give 120 mg of diltiazam and 40 mg of the beta pace in the AM, and to have Malcolm/Suarez adjust medication regimine. PT was in Afib/Aflutter until 1400, as he coonverted to SR. PT is still in SR, and HR is 65. Will reassess pt's HR and proceed with care as ordered.
[2020-05-23] MEDS: FLUTICASONE NASAL SPRAY (FLONASE) 16 GM BTL NS SCH (21:48)
[2020-05-24] VITALS: BP 117/65
[2020-05-24 03:50] VITALS: BP 112/67
[2020-05-24 06:21] LABS: CHLORIDE 108 MMOL/L (98-107); POTASSIUM 4.5 MMOL/L (3.6-5.0); SODIUM 139 MMOL/L (135-145)
[2020-05-24 06:22] LABS: CALCIUM 8.3 MG/DL (8.5-10.1)
[2020-05-24 06:23] LABS: GLUCOSE 109 MG/DL (70-105)
[2020-05-24 06:24] LABS: CARBON DIOXIDE 22 MMOL/L (21-32)
[2020-05-24 06:26] LABS: CREATININE SERUM 1.05 MG/DL (0.60-1.30); GFR ESTIMATED > 60
[2020-05-24 06:27] LABS: BUN/CREATININE RATIO 35
[2020-05-24] MEDS: SOTALOL 80 MG (BETAPACE) TAB PO SCH (07:13)
[2020-05-24] MEDS: RT-ALBUTEROL INHALER HFA (VENTOLIN HFA) 18 GM IH SCH (07:18)
--- NOTE | 2020-05-24 07:23 | NUR ---
pt was placed on room air for 5 minutes. pt desaturated to 86%. pt was then placed on 2L NC and his saturation came up to 92%. pt will need 2 continuously Addendum: 05/24/20 at 0725 by KARLA BAUTISTA RT Amended: Links added.
[2020-05-24 08:00] VITALS: BP 111/60
[2020-05-24] MEDS: PANTOPRAZOLE 20 MG TABLET (PROTONIX) PO SCH (08:50)
[2020-05-24] MEDS: SENNA W/DOCUSATE (SENOKOT S) TABLET PO SCH (08:51)
[2020-05-24] MEDS: busPIRone 15 MG (BUSPAR) TABLET PO SCH (08:51)
[2020-05-24] MEDS: FUROSEMIDE 40 MG (LASIX) TAB PO SCH (08:52)
[2020-05-24] MEDS: APIXABAN 5 MG (ELIQUIS) TABLET PO SCH (08:52)
[2020-05-24] MEDS ORDERED: SOTALOL 80 MG (BETAPACE) TAB PO NR (09:00)
--- NOTE | 2020-05-24 09:10 | Discharge Inst-Skilled Nursing ---
Discharge Inst-Skilled NF Chief Complaint Gallito Barros Jr is a 69-year-old male with past medical history of hypertension, COPD, atrial fibrillation, GERD, who presented with weakness. He says he has been sick for at least 2 weeks. He reports having a cough. He is a little bit short of breath. He just feels tired. He says he has not been eatin g and drinking very well. He denies any chest pain. He denies any palpitations. He denies any abdominal pain. He denies any nausea or vomiting. Patient Instructions Patient Instructions: Please continue to take your medications as written. Please follow up with your primary care doctor to follow up this hospital stay. Consult/Follow Up/Orders Follow Up Appt.: With Dr Bailey in the next week. Skilled NF Admit to: [facility] Certification ([facility]) I certify that SNF services are required to be given on an inpatient basis because of the above named patient's need for snf care on a continuing basis for the conditions(s) for which he/she was receiving inpatient hospital services prior to his/her transfer to the SNF. Halfway Facility Order: Nursing Services, Food And Beverage Attendant-Evaluate & Treat, Physical Therapy-Evaluate & Treat Oxygen Delivery Method: Nasal Cannula Oxygen Flow Rate L/min (Range): 2lpm Discharge Diet: Cardiac Diet Daily Activity as Tolerated: Yes Resuscitation Status: Full Code New & Resume Previous Orders Kev Farias May 24, 2020 09:07 KEV FARIAS MD May 24, 2020 09:10
[2020-05-24] MEDS ORDERED: STL80T PO (09:32)
[2020-05-24] MEDS: UMECLIDINIUM BROMIDE (INCRUSE ELLIPTA) 7'S IH SCH (09:42)
[2020-05-24] MEDS: ADVAIR HFA 115/21 MCG INHALER 8 GM IH SCH (09:42)
--- NOTE | 2020-05-24 10:41 | NUR ---
CM/SS finalized discharge. Plan: Patient will discharge to [facility] at 2:00 p.m. CM/SS sent finalized skilled discharge orders, home o2 study, and oxygen script for 2L continuos to [facility]. CM/SS contacted the patient via phone to inform him of pick up and delivery driver time. He verbalized understanding. No further needs at this time.
--- NOTE | 2020-05-24 11:15 | NUR ---
report called to Loretta, Nurse, who will assume care of this patient when she arrives to [facility].
[2020-05-24 12:00] VITALS: BP 135/80
[2020-05-24 13:36] VITALS: BP 135/80
== END 2020-05-24 14:20 | DRG 871 ==
LOC: EDUNIT# 19:03 → ER 19:04 → CSD 21:02 → 4TH 05-21 00:36
PROVIDERS: ADMIT Internal Medicine; ATTEND Internal Medicine
PROC: XW13325 Transfusion of Convalescent Plasma (Nonautologous) into Peripheral Vein, Percutaneous Approach, New Technology Group 5 (ICD-10-PCS; principal; 2020-05-19)
DX: A41.89 Other specified sepsis (principal); U07.1 COVID-19; J96.00 Acute respiratory failure, unspecified whether with hypoxia or hypercapnia; N17.9 Acute kidney failure, unspecified; I69.351 Hemiplegia and hemiparesis following cerebral infarction affecting right dominant side; I69.898 Other sequelae of other cerebrovascular disease; R56.9 Unspecified convulsions; J44.9 Chronic obstructive pulmonary disease, unspecified; I10 Essential (primary) hypertension; K21.9 Gastro-esophageal reflux disease without esophagitis; R79.89 Other specified abnormal findings of blood chemistry; I48.0 Paroxysmal atrial fibrillation; R09.02 Hypoxemia; M21.371 Foot drop, right foot; M19.91 Primary osteoarthritis, unspecified site; F41.9 Anxiety disorder, unspecified; I49.1 Atrial premature depolarization; Q24.9 Congenital malformation of heart, unspecified; Z87.891 Personal history of nicotine dependence; Z79.01 Long term (current) use of anticoagulants; Z79.899 Other long term (current) drug therapy
CPT/HCPCS: 36415; 71045; 80048; 80053; 83735; 84145; 84484; 85007; 85025; 85027; 86900; 86901; 87635; 87804; 93005; 94640; 94760; 94761

== ENCOUNTER → 2020-10-16 | Day surgery (SDC) | payer MEDICARE ==
[~2020-10-16] VITALS: Ht 160 cm; Wt 73.0 kg
[~2020-10-16] MED LIST changes: +CATHETER FLUSH 10 ML SYR IV PRN; +CHOL100048 PO; +LIDOCAINE 1% INJ 20 ML 20 ML VIAL ONE; -MONT10TA26 PO; +MONT10TA32 PO; +REGADENOSON 0.4 MG/5 ML SYR (LEXISCAN) IV ONE
--- NOTE | 2020-10-16 10:40 | Implantation of Loop Monitor ---
Implant of Loop Monitior IMPLANTATION OF LOOP MONITOR REPORT DATE OF PROCEDURE: 10/16/20 PREOP DIAGNOSIS: Paroxysmal atrial fibrillation POSTOP DIAGNOSIS: Paroxysmal atrial fibrillation PROCEDURE DETAILS: The patient is a 70 male with history of paroxysmal atrial fibrillation requiring long-term surveillance. Therefore implantable loop recorder was discussed and agreed with the patient. Informed consent was taken. All risks and complications were discussed at length. The patient was draped and prepped in the usual sterile fashion. Local anesthesia was lidocaine, which was given in the substernal area close to the 4th intercostal space. Loop monitor [employer] with serial number [id number] was implanted according to the protocol. Steri- Strips were placed at the end of the procedure. There were no complications and the patient tolerated the procedure well. The device was interrogated with a voltage of. ANESTHESIA: Local anesthesia with lidocaine. COMPLICATIONS: None CONTRAST/FLUOROSCOPY: None CONCLUSION: Successful implantation of loop monitor with no complication FINAL DIAGNOSIS: Paroxysmal atrial fibrillation Palpitation Hypertension Hyperlipidemia MELISSA ADAMS MD Oct 16, 2020 10:39 am
[2020-10-16 12:34] VITALS: BP 132/81
--- NOTE | 2020-10-16 16:24 | Cardiology Stress Test Report ---
Stress Test Report Date of Procedure/Referring: Date of Procedure: Oct 16, 2020 PCP Melissa Bustamante MD Admitting Physician Yeison Bailey MD Indications: Hypertension Baseline Heart Rate: 85 Baseline Blood Pressure: Blood Pressure Systolic: 132 Blood Pressure Diastolic: 81 Baseline Vitals Vital Signs Date Time Temp Pulse Resp B/P (MAP) Pulse Ox O2 Delivery O2 Flow Rate FiO2 10/16/20 10:07 36.6 79 20 98 10/16/20 12:34 132/81 (98) Baseline EKG: Baseline EKG: Sinus rhythm, right bundle branch block Summary After explaining the procedure to the patient, he signed a consent and then brought to the stress nuclear laboratory. Patient received 0.4 mg Lexiscan for stress test, ECG, heart rate and blood pressure were monitored continuously. Resting and stress dose of radio tracer were injected, imaging was acquired and reviewed in short axis, horizontal long axis and vertical long axis views. TID: 1.01 SSS: 6 SDS: 4 EF: 70 1. Patient tolerated Lexiscan well 2. Diaphragmatic attenuation with mild decreased uptake involving the mid to apical inferior wall and inferolateral wall with mild reversibility 3. Normal left ventricular size, EF 75 MELISSA BUSTAMANTE MD Oct 16, 2020 16:24
== END ==
LOC: CATH 08:48 → EDSTATUS 09:30
PROVIDERS: ATTEND Internal Medicine Cardiovascular Disease
DX: I48.0 Paroxysmal atrial fibrillation (principal); I42.8 Other cardiomyopathies; I50.22 Chronic systolic (congestive) heart failure; I11.0 Hypertensive heart disease with heart failure; I25.10 Atherosclerotic heart disease of native coronary artery without angina pectoris; G40.909 Epilepsy, unspecified, not intractable, without status epilepticus; Z88.0 Allergy status to penicillin; Z88.8 Allergy status to other drugs, medicaments and biological substances; Z79.899 Other long term (current) drug therapy; I65.29 Occlusion and stenosis of unspecified carotid artery; Z79.01 Long term (current) use of anticoagulants; Z79.891 Long term (current) use of opiate analgesic; Z80.9 Family history of malignant neoplasm, unspecified
CPT/HCPCS: 33285; 78452; 93017; 93306; A9502; C1764

== ENCOUNTER 2021-12-12 12:08 | Observation (INO) | payer MEDICARE ==
[~2021-12-12] VITALS: Ht 160 cm; Wt 69.8 kg
[~2021-12-12 12:08] MED LIST changes: -CATHETER FLUSH 10 ML SYR IV PRN; -LIDOCAINE 1% INJ 20 ML 20 ML VIAL ONE; +MONT-40 PO; -MONT10TA32 PO; +POTA-169 PO; -POTA20TA8 PO; -REGADENOSON 0.4 MG/5 ML SYR (LEXISCAN) IV ONE
[2021-12-12] MEDS ORDERED: PHARMACY TO DOSE IV ONE (13:15)
--- NOTE | 2021-12-12 13:18 | Cardiology History & Physical ---
HPI-Cardiology Cardiology Consultation Date of Consultation 12/12/21 Date of Admission Time Seen by Provider: 13:14 Indication: Atrial fibrillation HPI 71-year-old gentleman with history of paroxysmal atrial fibrillation, hypertension hyperlipidemia and coronary artery disease, has been having multiple episodes of atrial fibrillation, he has been maintained on sotalol, recommendation was to admit him and escalated the dose to 120 mg daily. He denied any chest pain or shortness of breath. No palpitation PMH-Cardiology Immunizations Up To Date Tetanus Booster (DTap): Unknown Date of Pneumonia Vaccine: Apr 28, 2016 Date of Influenza Vaccine: Apr 07, 2017 Seasonal Allergies Seasonal Allergies: Yes Surgeries Yes (Heart surgery at 10 OR 14 years of age) Respiratory Yes COPD Cardiovascular Yes (open heart sx at 10 OR 14 years after endocarditis) Atrial Fibrillation, Valvular Heart Disease Neurological Yes Stroke Reproductive System Hx Reproductive Disorders: No Sexually Transmitted Disease: No HIV/AIDS: No Genitourinary No Gastrointestinal No Musculoskeletal Yes (RIGHT PARTIAL HEMIPLEGIA DUE TO PRIOR CVA) Arthritis, Foot Drop, Contracture Endocrine No HEENT No Loss of Vision: Denies Hearing Impairment: Denies Cancer No Psychosocial Yes Anxiety Integumentary No Blood Transfusions No Adverse Rxn to Transfusion: No Other PMHx Discussed below Social History Patient Social History Marrital Status: Employed/Student: retired Dip or chew tobacco?: No Family Hx Family History: Alcoholism G8 BROTHER, Onset:Unknown Arthritis 19 MOTHER, Onset:Unknown Cardiovascular disease G8 SISTER, Onset:60 years & older 19 FATHER, Onset:60 years & older Completed stroke G8 BROTHER, Onset:50's - 60 FH: breast cancer 19 MOTHER, Onset:60 years & older Hypercholesterolemia 19 FATHER, Onset:Unknown Myocardial infarction 19 FATHER, Onset:60 years & older Seizure disorder G8 BROTHER, Onset:50's - 60 ROS-Cardiology Review of Systems General: No Chills, No Night Sweats, No Fatigue, No Malaise, No Appetite HEENT: No Head Aches, No Visual Changes, No Eye Pain, No Ear Pain, No Dysphasia, No Sinus Congestion, No Post Nasal Drip, No Sore Throat Pulmonary: Dyspnea; No Cough, No Pleuritic Chest Pain Cardiovascular: Palpitations, Edema; No: Chest Pain, Orthopnea, Paroxysmal Noc. Dyspnea, Lt Headedness, Other Gastrointestinal: No: Nausea, Vomiting, Abdominal Pain, Diarrhea, Constipation, Melena, Hematochezia Genitourinary: No Dysuria, No Frequency, No Incontinence, No Hematuria, No Retention Musculoskeletal: No: neck pain, shoulder pain, arm pain, back pain, hand pain, leg pain, foot pain Neurological: No: Weakness, Numbness, Incoordination, Change in speech, Confusion, Seizures Home Medications & Allergies Allergies: Coded Allergies: chlorpromazine (Verified Allergy, Severe, Anaphylaxis, 05/24/20) paralizes the patient Penicillins (Unverified Allergy, Unknown, 10/19/17) Uncoded Allergies: melllaril (Adverse Reaction, Intermediate, Itching, 05/24/20) confusion Home Medication List Reviewed: Yes Exam-Cardiology Exam General Appearance: Alert, Oriented X3, Cooperative, No Acute Distress HEENT: Atraumatic, PERRLA Respiratory: Clear to Auscultation, Normal Air Movement Cardiovascular: Regular Rate, Normal S1, Normal S2, No Murmurs Abdominal: Normal Bowel Sounds, Soft, No Tenderness, No Hepatosplenomegaly, No Masses Extremities: No Clubbing, No Cyanosis, No Edema, Normal Pulses, No Tenderness/ Swelling Skin: No Rashes, No Breakdown, No Significant Lesion Neuro: Normal Gait, Normal Speech, Strength at 5/5 X4 Ext, Normal Tone, Sensation Intact Psych/Mental Status: Mental Status NL, Mood NL A/P-Cardiology Admission Diagnosis Paroxysmal atrial fibrillation Coronary artery disease Hypertension Hyperlipidemia Admission Status: Observation Assessment/Plan Paroxysmal atrial fibrillation, status post multiple TEEs and cardioversion, most recent cardioversion was September 2016. Currently maintained on sotalol. status post loop monitor implantation on October 16, 2020 Patient is starting to have more frequent episodes of atrial fibrillation He was admitted to escalate the sotalol to 120 mg twice a day and evaluate tolerance and response 2D echocardiogram done on October 16, 2020 showing normal LV size, EF 55 to 65%, left atrium 4.73 cm, mild to moderate MR, mild to moderate AR, moderate severe TR, PA 35 to 40 mmHg. Continue to monitor Coronary artery disease, mild disease per cardiac catheterization showing 40-50 percent stenosis in the mid LAD, mild disease in the right coronary artery, cardiac catheterization was done on 01/24/2015, last stress test was done in October 16, 2020 showing diaphragmatic attenuation with mild decreased uptake involving the mid to apical inferior wall and inferolateral wall with subtle reversibility, EF 75%. Patient is asymptomatic. I recommend conservative management and monitoring him, will consider cardiac catheterization if he becomes symptomatic [id number] score of 3, considered high risk, with yearly risk of stroke without OAC 3.2%. Maintained on Eliquis. Continue to monitor History of Elevated LFT's- unknown etiology, possibly secondary to amiodarone use in the past. Continue to monitor at this point. 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 currently stable. Continue to monitor. History of CVA at age 15 History of seizure disorder, maintained on Dilantin. Questionable history of valvular repair at age 15. Nonobstructive carotid artery stenosis-most recent carotid duplex done In October 2020, continue to monitor MELISSA ADAMS MD Dec 12, 2021 13:18
[2021-12-12] MEDS ORDERED: SOTALOL IV NR (13:30)
[2021-12-12] MEDS ORDERED: NS IV NR (13:30)
[2021-12-12 14:12] LABS: POTASSIUM 4.1 MMOL/L (3.6-5.0)
[2021-12-12 14:13] LABS: CALCIUM 9.2 MG/DL (8.5-10.1)
[2021-12-12 14:18] LABS: CREATININE SERUM 1.37 MG/DL (0.60-1.30)
[2021-12-12 14:20] LABS: MAGNESIUM 2.2 MG/DL (1.6-2.4)
--- NOTE | 2021-12-12 14:22 | Tele-ICU Progress Note ---
Subjective Date Seen by a Provider: Dec 12, 2021 Time Seen by a Provider: 14:17 Subjective/Events-last exam This patient admitted for regulation of his atrial fibrillation. He apparently has a history of chronic atrial fibrillation for which he has been on the sotalol. Reportedly his atrial fibrillation is not converted to sinus rhythm well controlled hence he is admitted to the intensive care unit for close monitoring and advancing his sotalol dose. Patient denies any chest pain or palpitation. I made a video visit and discussed with the patient. Available data and labs revealed. There is no tele ICU consult. But I am seeing this patient for telemetry ICU protocol Review of Systems CHANDRIKA PER RN Sepsis Event Evaluation Height, Weight, BMI Height: 5'3.00" Weight: 169lbs. 0.0oz. 76.228260vo; 28.51 BMI Method:Stated Exam Exam Patient acknowledged, consented, and participated in this virtual visit which wa s conducted using real time audio/video Height & Weight Height: 5'3.00" Weight: 169lbs. 0.0oz. 76.951232mm; 28.51 BMI Method:Stated General Appearance: No Apparent Distress, Other (RESTING COMFORTABLY WITH OUT DISTRESS) Other comments PE PER RN Results Lab Laboratory Tests 12/12/21 13:55 Assessment/Plan Assessment/Plan 1. Paroxysmal atrial fibrillation Sotalol dose adjustment per cardiology. 2. History of coronary artery disease 3. Hypertension 4. Hyperlipidemia. Management per cardiology Critical Care: Critically Ill Patient Time spent with patient (mins): 15 SARTHAK CAUSEY MD Dec 12, 2021 14:22
[2021-12-12] MEDS ORDERED: SOTA80TA62 PO (15:07)
[2021-12-12] MEDS ORDERED: ASCO500T7 PO (15:07)
[2021-12-12] MEDS ORDERED: GUAI600T43 PO (15:07)
[2021-12-12] MEDS ORDERED: POTA-179 PO (15:07)
[2021-12-12] MEDS ORDERED: ENLP2.5T PO (15:07)
[2021-12-12] MEDS: APIXABAN 5 MG (ELIQUIS) TABLET PO SCH (20:48)
[2021-12-12] MEDS ORDERED: SOTALOL 80 MG (BETAPACE) TAB PO NR (22:30)
[2021-12-13 05:04] LABS: CALCIUM 8.7 MG/DL (8.5-10.1)
[2021-12-13 05:08] LABS: CREATININE SERUM 1.29 MG/DL (0.60-1.30)
[2021-12-13 05:11] LABS: MAGNESIUM 2.1 MG/DL (1.6-2.4)
--- NOTE | 2021-12-13 08:25 | Short Stay Summary ---
History of Present Illness History of Present Illness Reason for visit/HPI 71 years old gentleman with history of paroxysmal atrial fibrillation, admitted for escalating the dose of sotalol. His loop monitor has been showing episodes of paroxysmal atrial fibrillation, he has been maintained on sotalol 80 mg twice daily. Date of Admission Dec 12, 2021 at 12:42 Date of Discharge December 13, 2021 Time Seen by Provider: 08:23 Attending Physician Yeison Bailey MD Admitting Physician Admitting Physician: Reji Bustamante MD Attending Physician: Reji Bustamante MD Consult Allergies and Home Medications Allergies Coded Allergies: chlorpromazine (Verified Allergy, Severe, Anaphylaxis, 05/24/20) paralizes the patient Penicillins (Unverified Allergy, Unknown, 10/19/17) Uncoded Allergies: melllaril (Adverse Reaction, Intermediate, Itching, 05/24/20) confusion Patient Home Medication List Home Medication List Reviewed: Yes Amitriptyline HCl (Amitriptyline HCl) 25 Mg Tablet, 25 MG PO HS, (Reported) Entered as Reported by: NHI PEREZ on 08/12/16 1405 Last Action: Reviewed Apixaban (Eliquis) 5 Mg Tablet, 5 MG PO BID, (Reported) Entered as Reported by: MELISSA ECHAVARRIA on 07/29/16 0840 Last Action: Reviewed Ascorbic Acid (Ascorbic Acid) 500 Mg Tablet, 500 MG PO DAILY, (Reported) Entered as Reported by: LUC KAUFMAN on 12/12/21 1507 Last Action: Reviewed Buspirone HCl (Buspirone HCl) 15 Mg Tablet, 15 MG PO BID, (Reported) Entered as Reported by: NHI PEREZ on 08/12/16 1405 Last Action: Reviewed Cholecalciferol (Vitamin D3) (Vitamin D3) 25 Mcg Capsule, 25 MCG PO DAILY, (Reported) Entered as Reported by: LUC KAUFMAN on 05/19/20 1346 Last Action: Reviewed Diltiazem HCl (Diltiazem ER) 360 Mg Capsule.er, 360 MG PO DAILY, (Reported) Entered as Reported by: MELISSA ECHAVARRIA on 07/30/17 1403 Last Action: Reviewed Enalapril Maleate (Enalapril Maleate) 2.5 Mg Tablet, 2.5 MG PO DAILY, (Reported) Entered as Reported by: LUC KAUFMAN on 12/12/211506 Last Action: Reviewed Fluticasone/Salmeterol (Advair 500-50 Diskus) 1 Each Blst.w.dev, 1 PUFF IH BID, (Reported) Entered as Reported by: NHI PEREZ on 08/12/161404 Last Action: Reviewed Furosemide (Furosemide) 40 Mg Tablet, 40 MG PO DAILY, (Reported) Entered as Reported by: MELISSA ECHAVARRIA on 07/29/16839 Last Action: Reviewed Guaifenesin (Mucinex) 600 Mg Tab.er.12h, 600 MG PO Q12H, (Reported) Entered as Reported by: LUC KAUFMAN on 12/12/211506 Last Action: Reviewed Ibandronate Sodium (Ibandronate Sodium) 150 Mg Tablet, 150 MG PO MONTHLY, (Reported) Entered as Reported by: MELISSA ECHAVARRIA on 07/29/16839 Last Action: Reviewed Montelukast Sodium (Montelukast Sodium) 10 Mg Tablet, 10 MG PO DAILY, (Reported) Entered as Reported by: NHI PEREZ on 08/12/161404 Last Action: Reviewed Multivitamin with Minerals (Men's One Daily) 1 Each Tablet, 1 TAB PO DAILY, (Reported) Entered as Reported by: MELISSA ECHAVARRIA on 07/29/16839 Last Action: Reviewed [place] 3 Polyunsat Fatty Acids (Fish Oil 1,000 mg Capsule) 1,000 Mg Cap, 1,000 MG PO DAILY, (Reported) Entered as Reported by: MELISSA ECHAVARRIA on 07/29/16839 Last Action: Reviewed Omeprazole (Omeprazole) 20 Mg Capsule.dr, 20 MG PO DAILY, (Reported) Entered as Reported by: NHI PEREZ on 08/12/161404 Last Action: Reviewed Phenytoin Sodium Extended (Dilantin) 100 Mg Capsule, 200 MG PO MON,WE,FR@HS, (Reported) Entered as Reported by: MELISSA ECHAVARRIA on 07/30/171421 Last Action: Reviewed Phenytoin Sodium Extended (Dilantin) 100 Mg Capsule, 300 MG PO SUN,JOELE,ASMITA,SAT@HS, (Reported) Entered as Reported by: LUC KAUFMAN on 05/19/20 1346 Last Action: Reviewed Potassium Chloride (Potassium Chloride) 20 Meq Tab.er.prt, 20 MEQ PO DAILY, (Reported) Entered as Reported by: LUC KAUFMAN on 12/12/211506 Last Action: Reviewed Prednisone (Prednisone) 5 Mg Tablet, 5 MG PO DAILY, (Reported) Entered as Reported by: NHI PEREZ on 08/12/161404 Last Action: Reviewed Sotalol HCl (Sotalol) 80 Mg Tablet, 80 MG PO BID, (Reported) Entered as Reported by: LUC KAUFMAN on 12/12/211506 Last Action: Reviewed Discontinued Medications Fluticasone Propionate (Fluticasone Propionate) 16 Gm [place].susp, 2 SPRAYS NS HS, (Reported) Discontinued Reason: No Longer Taking Entered as Reported by: NHI PEREZ on 08/12/161404 Last Action: Discontinued Potassium Chloride (Klor-Con M20) 20 Meq Tab.er.prt, 20 MEQ PO DAILY, (Reported) Discontinued Reason: Duplicate Order Entered as Reported by: MELISSA ECHAVARRIA on 07/29/16 0840 Last Action: Discontinued Sotalol HCl (Sotalol) 80 Mg Tablet, 40 MG PO BID Discontinued Reason: Duplicate Order Prescribed by: KEV FARIAS on 05/24/20 0932 Last Action: Discontinued Tiotropium [place] (Spiriva) 1 Inh Aerp, 1 CAP IH DAILY, (Reported) Discontinued Reason: No Longer Taking Entered as Reported by: NHI PEREZ on 08/12/161404 Last Action: Discontinued Past [id number] Hx Patient Social History Marrital Status: Employed/Student: retired Smoking Status: Former Smoker Former Smoker, Quit: Jul 30, 1999 Recent Hopitalizations: No Have you traveled recently?: No Alcohol Use?: No Pt feels they are or have been: No Immunizations Up To Date Tetanus Booster (TDap): Unknown Pediatric: No Date of Pneumonia Vaccine: Apr 28, 2016 Date of Influenza Vaccine: Apr 07, 2017 Seasonal Allergies Seasonal Allergies: Yes Surgeries Yes (Heart surgery at 10 OR 14 years of age) Cardiac Respiratory Yes COPD Currently Using CPAP: No Currently Using BIPAP: No Cardiovascular Yes (open heart sx at 10 OR 14 years after endocarditis) Atrial Fibrillation, Congenital Heart Disease, Endocarditis, Hypertension, Valvular Heart Disease Neurological Yes Stroke Reproductive System Hx Reproductive Disorders: No Sexually Transmitted Disease: No HIV/AIDS: No Genitourinary No Gastrointestinal No Musculoskeletal Yes (RIGHT PARTIAL HEMIPLEGIA DUE TO PRIOR CVA) Arthritis, Foot Drop, Contracture Endocrine History of Endocrine Disorders: No HEENT History of HEENT Disorders: No Loss of Vision: Denies Hearing Impairment: Denies Cancer No Psychosocial History of Psychiatric Problem: Yes Behavioral Health Disorders: Anxiety Integumentary History of Skin or Integumenta: No Blood Transfusions History of Blood Disorders: No Adverse Reaction to a Blood Tr: No Family Medical History Family Hx: Alcoholism G8 BROTHER, Onset:Unknown Arthritis 19 MOTHER, Onset:Unknown Cardiovascular disease G8 SISTER, Onset:60 years & older 19 FATHER, Onset:60 years & older Completed stroke G8 BROTHER, Onset:50's - 60 FH: breast cancer 19 MOTHER, Onset:60 years & older Hypercholesterolemia 19 FATHER, Onset:Unknown Myocardial infarction 19 FATHER, Onset:60 years & older Seizure disorder G8 BROTHER, Onset:50's - 60 Review of Systems Constitutional: see HPI EENTM: see HPI Respiratory: see HPI Cardiovascular: see HPI Gastrointestinal: see HPI Genitourinary: see HPI Musculoskeletal: see HPI Skin: see HPI Psychiatric/Neurological: No Symptoms Reported, See HPI Physical Exam Vital Signs Vital Signs - First Documented 12/12/21 12/12/21 12/12/21 12/12/21 13:00 13:30 14:00 15:45 Temp 36.1 Pulse 79 Resp 8 B/P (MAP) 101/68 Pulse Ox 94 O2 Delivery Room Air Capillary Refill : Height, Weight, BMI Height: 5'3.00" Weight: 169lbs. 0.0oz. 76.163154ed; 27.26 BMI Method:Stated General Appearance: No Apparent Distress, WD/WN Eyes: Bilateral Eye Normal Inspection, Bilateral Eye PERRL, Bilateral Eye EOMI HEENT: PERRL/EOMI, TMs Normal, Normal ENT Inspection, Pharynx Normal Neck: Full Range of Motion, Normal Inspection, Non Tender, Supple, Carotid Bruit Respiratory: Chest Non Tender, Lungs Clear, Normal Breath Sounds, No Accessory Muscle Use, No Respiratory Distress Cardiovascular: Regular Rate, Rhythm, No Edema, No Gallop, No JVD, No Murmur, Normal Peripheral Pulses Gastrointestinal: Normal Bowel Sounds, No Organomegaly, No Pulsatile Mass, Non Tender, Soft Back: Normal Inspection, No CVA Tenderness, No Vertebral Tenderness Extremity: Normal Capillary Refill, Normal Inspection, Normal Range of Motion, Non Tender, No Calf Tenderness, No Pedal Edema Neurologic/Psychiatric: Alert, Oriented x3, No Motor/Sensory Deficits, Normal Mood/Affect Skin: Normal Color, Warm/Dry Lymphatic: No Adenopathy Clinical Quality Measures Admission Status Admission Status: Observation AMI/AHF: Ejection Fraction: Normal LVSF Short Stay Diagnosis Discharge Diagnosis-Short Stay Admission Diagnosis: Paroxysmal atrial fibrillation Palpitation Hypertension Hyperlipidemia Final Discharge Diagnosis: Paroxysmal atrial fibrillation Palpitation Hypertension Hyperlipidemia Conclusion Labs Laboratory Tests 12/12/21 13:55: Sodium Level 138, Potassium Level 4.1, Chloride Level 100, Carbon Dioxide Level 24, Anion Gap 14, Blood Urea Nitrogen 24H, Creatinine 1.37H, Estimat Glomerular Filtration Rate 55, BUN/Creatinine Ratio 18, Glucose Level 127H, Calcium Level 9.2, Magnesium Level 2.2 12/13/21 04:27: Sodium Level 135, Potassium Level 4.0, Chloride Level 99, Carbon Dioxide Level 25, Anion Gap 11, Blood Urea Nitrogen 25H, Creatinine 1.29, Estimat Glomerular Filtration Rate 59, BUN/Creatinine Ratio 19, Glucose Level 86, Calcium Level 8.7, Magnesium Level 2.1 Conclusion/Plan Paroxysmal atrial fibrillation, status post multiple TEEs and cardioversion, most recent cardioversion was September 2016. Currently maintained on sotalol. status post loop monitor implantation on October 16, 2020 Patient is starting to have more frequent episodes of atrial fibrillation He was admitted to escalate the sotalol to 120 mg twice a day and has been tolerating it well. 2D echocardiogram done on October 16, 2020 showing normal LV size, EF 55 to 65%, left atrium 4.73 cm, mild to moderate MR, mild to moderate AR, moderate severe TR, PA 35 to 40 mmHg. Continue to monitor Coronary artery disease, mild disease per cardiac catheterization showing 40-50 percent stenosis in the mid LAD, mild disease in the right coronary artery, cardiac catheterization was done on 01/24/2015, last stress test was done in October 16, 2020 showing diaphragmatic attenuation with mild decreased uptake involving the mid to apical inferior wall and inferolateral wall with subtle reversibility, EF 75%. Patient is asymptomatic. I recommend conservative manage ment and monitoring him, will consider cardiac catheterization if he becomes symptomatic [id number] score of 3, considered high risk, with yearly risk of stroke without OAC 3.2%. Maintained on Eliquis. Continue to monitor History of Elevated LFT's- unknown etiology, possibly secondary to amiodarone use in the past. Continue to monitor at this point. 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 currently stable. Continue to monitor. History of CVA at age 15 History of seizure disorder, maintained on Dilantin. Questionable history of valvular repair at age 15. Nonobstructive carotid artery stenosis-most recent carotid duplex done In October 2020, continue to monitor REJI BUSTAMANTE MD Dec 13, 2021 08:25
[2021-12-13] MEDS: APIXABAN 5 MG (ELIQUIS) TABLET PO SCH (08:48)
[2021-12-13] MEDS ORDERED: ENALAPRIL 2.5 MG (VASOTEC) TAB PO SCH (09:00)
[2021-12-13] MEDS ORDERED: SOTALOL 80 MG (BETAPACE) TAB PO SCH ×2 (09:00→22:30)
[2021-12-13] MEDS ORDERED: FUROSEMIDE 40 MG (LASIX) TAB PO SCH (09:00)
[2021-12-13] MEDS ORDERED: STL80T PO (10:55)
--- NOTE | 2021-12-13 10:56 | Discharge Inst-Post CATH ---
Discharge Inst-CATH/EP Problems Reviewed?: Yes Post Cardiac Cath/EP D/C Inst Follow Up/Plan Appointment with Dr. Bustamante's office in 2 weeks ECG tomorrow at Dr Bustamante office <b>CARDIAC CATH/EP PROCEDURE DISCHARGE INSTRUCTIONS</b> ACTIVITY * Go Home directly and rest. * Limit activity of the leg (or wrist if it was used) for 7 days including aerobics, swimming, jogging, bicycling, etc. * Restrict stair-climbing for 7 days if possible, if not, climb up with your non-cath leg, then bring together on the same step. * Avoid lifting, pushing, pulling or excessive movement of the affected extremity for 7 days. * Customary sexual activity may be resumed after 2 days-use caution not to use a position that strains or causes pain to the affected extremity. * No driving for 24 hours. * NO SMOKING. * Avoid straining for bowel movements for 7 days. * Gentle walking on level ground is allowed. * Returning to work will depend on the type of procedure and the results. Your doctor will discuss this with you. CALL YOUR DOCTOR FOR ANY OF THE FOLLOWING: *If bleeding from the puncture site occurs- Apply gentle pressure to site with clean cloth and call your doctor or EMS. * If a knot or lump forms under the skin, increases in size, or causes pain. * If bruising appears to be worsening or moving further down your leg instead of disappearing. * Temperature above 101 F. CARE OF YOUR GROIN INCISION; * Bruising or purple discoloration of the skin near the puncture site is common. * You may shower only, no bathtub bathing for 5 days. Be careful to avoid slipping as your leg may feel stiff. * If a closure device was used on your femoral artery, please see the attached guide regarding care of the device and your leg. * Leave dressing on FOR 24 hours. CARE OF YOUR WRIST INCISION; * Bruising or purple discoloration of the skin near the puncture site is common. * You may shower. * DO NOT submerge wrist. * Leave dressing on FOR 24 hours. MELISSA BUSTAMANTE MD Dec 13, 2021 10:56
== END 2021-12-13 11:22 | disposition home or self-care (01) ==
LOC: ICU 12:42
PROVIDERS: ADMIT Internal Medicine Cardiovascular Disease; ATTEND Internal Medicine Cardiovascular Disease
DX: I48.0 Paroxysmal atrial fibrillation (principal); I10 Essential (primary) hypertension; E78.5 Hyperlipidemia, unspecified; I25.10 Atherosclerotic heart disease of native coronary artery without angina pectoris; I65.29 Occlusion and stenosis of unspecified carotid artery; Z86.73 Personal history of transient ischemic attack (TIA), and cerebral infarction without residual deficits; Z87.891 Personal history of nicotine dependence
CPT/HCPCS: 80048 ×2; 83735 ×2; 93005 ×2; 96365; 96366; G0378; G0379; 36415

== ENCOUNTER → 2022-11-01 | Outpatient (CLI) | payer MEDICARE ==
[~2022-11-01] MED LIST changes: +ASCO500T7 PO; +POTA-179 PO; +SOTA80TA62 PO
== END ==
LOC: CARD 08:11
PROVIDERS: ATTEND Physician Assistant
DX: I08.3 Combined rheumatic disorders of mitral, aortic and tricuspid valves (principal); I11.9 Hypertensive heart disease without heart failure
CPT/HCPCS: 93306

== ENCOUNTER 2023-05-13 11:32 | Observation (INO) | payer MEDICARE ==
[~2023-05-13] VITALS: Ht 160 cm; Wt 67.7 kg
[~2023-05-13 11:32] MED LIST changes: +DILT360C22 PO; -DILT360C30 PO
[2023-05-13] MEDS ORDERED: PHARMACY TO DOSE IV ONE (13:15)
--- NOTE | 2023-05-13 13:20 | Tele-ICU Consult ---
History of Present Illness History of Present Illness Date Seen by Provider: May 13, 2023 Time Seen by Provider: 13:16 History of Present Illness eICU Critical Care Consult information from cardiology note 72 yo M admitted with pAF, failed cardioversion, Now on sotalol, admitted to get increased dosing, Did not do well on amiodarone. EKG shows sinus with 1 AVB PMH CMP non ischemic, CHADS2-VAc score 3, on Eliquis Hx of elevated LFT's ? 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 valve repair at age 15, non obstructive carotid stenosis 10/26 echo showed LVEF 55-60% Allergies and Home Medications Allergies Coded Allergies: chlorpromazine (Verified Allergy, Severe, Anaphylaxis, 05/24/20) paralizes the patient Penicillins (Unverified Allergy, Unknown, 10/19/17) Uncoded Allergies: melllaril (Adverse Reaction, Intermediate, Itching, 05/24/20) confusion Home Medications Amitriptyline HCl 25 Mg Tablet, 25 MG PO HS, (Reported) Apixaban 5 Mg Tablet, 5 MG PO BID, (Reported) Ascorbic Acid 500 Mg Tablet, 500 MG PO DAILY, (Reported) Buspirone HCl 15 Mg Tablet, 15 MG PO BID, (Reported) Cholecalciferol (Vitamin D3) 25 Mcg Capsule, 25 MCG PO DAILY, (Reported) Diltiazem HCl 360 Mg Capsule.er, 360 MG PO DAILY, (Reported) Enalapril Maleate 2.5 Mg Tablet, 2.5 MG PO DAILY, (Reported) Fluticasone/Salmeterol 1 Each Blst.w.dev, 1 PUFF IH BID, (Reported) Furosemide 40 Mg Tablet, 40 MG PO DAILY, (Reported) Guaifenesin 600 Mg Tab.er.12h, 600 MG PO Q12H, (Reported) Ibandronate Sodium 150 Mg Tablet, 150 MG PO MONTHLY, (Reported) Montelukast Sodium 10 Mg Tablet, 10 MG PO DAILY, (Reported) Multivitamin with Minerals 1 Each Tablet, 1 TAB PO DAILY, (Reported) [place] 3 Polyunsat Fatty Acids 1,000 Mg Cap, 1,000 MG PO DAILY, (Reported) Omeprazole 20 Mg Capsule.dr, 20 MG PO DAILY, (Reported) Phenytoin Sodium Extended 100 Mg Capsule, 200 MG PO MON,WE,FR@HS, (Reported) TAKES 2 (100MG) TABS Phenytoin Sodium Extended 100 Mg Capsule, 300 MG PO SUN,JOELE,ASMITA,SAT@HS, (Reported) TAKES 3 (100MG) TABS Potassium Chloride 20 Meq Tab.er.prt, 20 MEQ PO DAILY, (Reported) Prednisone 5 Mg Tablet, 5 MG PO DAILY, (Reported) Sotalol HCl 80 Mg Tablet, 120 MG PO BID Prescribed by: MELISSA ADAMS on 12/13/21 1055 Past Medical/Social/Family Hx Immunizations Up To Date Tetanus Booster (TDap): Unknown Date of Pneumonia Vaccine: Apr 28, 2016 Current Status Primary Language: Tajik Review of Systems Constitutional: no symptoms reported Focused Exam Height, Weight, BMI Height: 5'3.00" Weight: 169lbs. 0.0oz. 76.907256my; 27.26 BMI Method:Stated Exam Exam Patient acknowledged, consented, and participated in this virtual visit which was conducted using real time audio/video Height & Weight Height: 5'3.00" Weight: 169lbs. 0.0oz. 76.044244gz; 27.26 BMI Method:Stated General Appearance: No Apparent Distress HEENT: PERRL/EOMI Respiratory: Lungs Clear Cardiovascular: Regular Rate, Rhythm, Irregularly Irregular Gastrointestinal: normal bowel sounds, non tender, soft Extremity: No Pedal Edema Neurologic/Psychiatric: Alert, Oriented x3, Other (right sided weakness, jasmin right arm is contractured, right leg has brace, cane) Assessment/Plan Assessment/Plan pAF, to be continued on increased dose of sotalol, got IV and will soon get po cardiology to follow, continue Critical Care: Critically Ill Patient Time spent with patient (mins): 20 SPENCER LOVELL MD May 13, 2023 13:20
--- NOTE | 2023-05-13 13:30 | Consultation-Cardiology ---
HPI-Cardiology Cardiology Consultation Date of Consultation 05/13/23 Date of Admission Time Seen by Provider: 16:25 Indication: Atrial fibrillation HPI 72-year-old gentleman with paroxysmal atrial fibrillation, failed cardioversion in the past, has been doing well with sotalol. Noted to have increasing episodes of atrial fibrillation, he is intolerant to amiodarone. We will try to escalate the dose of sotalol and evaluate tolerance and response Home Medications & Allergies Allergies: Coded Allergies: chlorpromazine (Verified Allergy, Severe, Anaphylaxis, 05/24/20) paralizes the patient Penicillins (Unverified Allergy, Unknown, 10/19/17) Uncoded Allergies: melllaril (Adverse Reaction, Intermediate, Itching, 05/24/20) confusion Home Medication List Reviewed: Yes ALM-[id number]-Bmmbcw Hx Patient Social History Type Used: Cigarettes Recent Hopitalizations: No Immunizations Up To Date Tetanus Booster (TDap): Unknown Date of Pneumonia Vaccine: Apr 28, 2016 Date of Influenza Vaccine: Apr 07, 2017 Past Medical History Discussed below Family Medical History Significant Family History: No Pertinent Family Hx Family History: Alcoholism G8 BROTHER, Onset:Unknown Arthritis 19 MOTHER, Onset:Unknown Cardiovascular disease G8 SISTER, Onset:60 years & older 19 FATHER, Onset:60 years & older Completed stroke G8 BROTHER, Onset:50's - 60 FH: breast cancer 19 MOTHER, Onset:60 years & older Hypercholesterolemia 19 FATHER, Onset:Unknown Myocardial infarction 19 FATHER, Onset:60 years & older Seizure disorder G8 BROTHER, Onset:50's - 60 Review of Systems-General Review of Systems Constitutional: no symptoms reported, see HPI EENTM: see HPI, no symptoms reported Respiratory: no symptoms reported, see HPI Cardiovascular: see HPI Gastrointestinal: no symptoms reported, see HPI Genitourinary: no symptoms reported, see HPI Musculoskeletal: no symptoms reported, see HPI Skin: no symptoms reported, see HPI Psychiatric/Neurological: No Symptoms Reported, See HPI Physical Exam Physical Exam Vital Signs Vital Signs - First Documented 05/13/23 13:00 Pulse 112 Resp 12 B/P (MAP) 115/67 (83) Pulse Ox 97 O2 Delivery Room Air Capillary Refill : Height, Weight, BMI Height: 5'3.00" Weight: 169lbs. 0.0oz. 76.389415zy; 27.26 BMI Method:Stated General Appearance: No Apparent Distress, WD/WN Eyes: Bilateral Eye Normal Inspection, Bilateral Eye PERRL, Bilateral Eye EOMI HEENT: PERRL/EOMI, TMs Normal, Normal ENT Inspection, Pharynx Normal, Moist Mucous Membranes Neck: Full Range of Motion, Normal Inspection, Non Tender, Supple, Carotid Brui t Respiratory: Chest Non Tender, Normal Breath Sounds, No Accessory Muscle Use, No Respiratory Distress Cardiovascular: Regular Rate, Rhythm, No Edema, No Gallop, No JVD, No Murmur, Normal Peripheral Pulses Gastrointestinal: Normal Bowel Sounds, No Organomegaly, No Pulsatile Mass, Non Tender, Soft Back: Normal Inspection, No CVA Tenderness, No Vertebral Tenderness Extremity: Normal Capillary Refill, Normal Inspection, Normal Range of Motion, Non Tender, No Calf Tenderness, No Pedal Edema Neurologic/Psychiatric: Alert, Oriented x3, Normal Mood/Affect Skin: Normal Color, Warm/Dry Lymphatic: No Adenopathy A/P-Cardiology Admission Diagnosis Paroxysmal atrial fibrillation Coronary artery disease Hypertension Hyperlipidemia Assessment/Plan Paroxysmal atrial fibrillation, status post multiple TEEs and cardioversion, most recent cardioversion was September 2016. Currently maintained on sotalol. D status post loop monitor implantation on October 16, 2020 On his loop interrogation he had multiple episodes of atrial fibrillation. He was referred for evaluation with Dr. Schaefer Was seen by Dr. Schaefer in July 2022. Patient decided against ablation. He was started on Toprol XL in addition to his Sotalol. Review of his loop monitor showed multiple episodes of atrial fibrillation, I will admit him to the hospital and escalate the dose to 120 mg twice daily and monitor tolerance and response Intolerant previously to amiodarone due to elevated liver enzymes. CHF, nonischemic cardiomyopathy, likely secondary to tachycardia during atrial fibrillation, Improved, asymptomatic. Continue to monitor 2D echocardiogram done on October 2022 showing EF 55-60%, mild MR, moderate AR, moderate TR, PA 40mmHg. Coronary artery disease, Cardiac catheterization was done in January 2015 showing 40-50 percent stenosis in the mid LAD, mild disease in the right coronary artery, Stress test was done in October 16, 2020 showing diaphragmatic attenuation with mild decreased uptake involving the mid to apical inferior wall and inferolateral wall with subtle reversibility, EF 75%. Patient is asymptomatic. I recommend conservative management and monitoring him, will consider cardiac catheterization if he becomes symptomatic [id number] score of 3, considered high risk, with yearly risk of stroke without OAC 3.2%. Maintained on Eliquis. Continue to monitor History of Elevated LFT's- unknown etiology, possibly secondary to amiodarone use in the past. Continue to monitor at this point. 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 currently stable. Continue to monit or. History of CVA at age 15 History of seizure disorder, maintained on Dilantin. Questionable history of valvular repair at age 15. Nonobstructive carotid artery stenosis-most recent carotid duplex done In April 2022 MELISSA ADAMS MD May 13, 2023 13:30
[2023-05-13 13:50] LABS: CALCIUM 8.9 MG/DL (8.5-10.1)
[2023-05-13 13:54] LABS: CREATININE SERUM 1.5 MG/DL (0.60-1.30)
[2023-05-13 13:56] LABS: MAGNESIUM 2.1 MG/DL (1.6-2.4)
[2023-05-13] MEDS ORDERED: NS IV NR (14:30)
[2023-05-13] MEDS ORDERED: SOTALOL IV NR (14:30)
[2023-05-13] MEDS: NS IV 1000 ML 1,000 ML IV SCH (16:04)
[2023-05-13] MEDS: SOTALOL 80 MG TABLET PO SCH (21:15)
[2023-05-13] MEDS: APIXABAN 5 MG TABLET PO SCH (21:15)
[2023-05-14] MEDS: NS IV 1000 ML 1,000 ML IV SCH ×2 (01:01→11:01)
[2023-05-14 04:13] LABS: ALBUMIN 3.2 GM/DL (3.2-4.5); POTASSIUM 3.7 MMOL/L (3.6-5.0)
[2023-05-14 04:14] LABS: CALCIUM 8.4 MG/DL (8.5-10.1)
[2023-05-14 04:17] LABS: BILIRUBIN,TOTAL 0.2 MG/DL (0.1-1.0)
[2023-05-14 04:19] LABS: CREATININE SERUM 1.29 MG/DL (0.60-1.30)
[2023-05-14] MEDS: SOTALOL 80 MG TABLET PO SCH (08:40)
[2023-05-14] MEDS: APIXABAN 5 MG TABLET PO SCH (08:40)
--- NOTE | 2023-05-14 08:47 | Cardiology Progress Note ---
Subjective Date Seen by Provider: May 14, 2023 Time Seen by Provider: 08:46 Subjective/Events-last exam Patient up walking in room, denies any chest pain or dyspnea. Objective-Cardiology Exam Last Set of Vital Signs Vital Signs 05/14/23 05/14/23 03:10 10:00 Temp 36.7 Pulse 74 Resp 32 B/P (MAP) 91/60 (70) Pulse Ox 96 O2 Delivery Room Air I&O Intake and Output 05/14/23 00:00 Intake Total 400 ml Balance 400 ml Intake Oral 400 ml # Voids 11 Daily Weight Change No General: Alert, Oriented X3, Cooperative HEENT: Atraumatic, PERRLA Lungs: Clear to Auscultation, Normal Air Movement Heart: Regular Rate, Normal S1, Normal S2 Abdomen: Soft Extremities: No Edema Skin: No Rashes, No Significant Lesion Neuro: Cranial Nerves 3-12 NL Psych/Mental Status: Mental Status NL, Mood NL Results Lab Laboratory Tests 05/13/23 13:30 05/14/23 03:21 A/P-Cardiology Admission Diagnosis Paroxysmal atrial fibrillation Coronary artery disease Hypertension Hyperlipidemia Assessment/Plan Paroxysmal atrial fibrillation, status post multiple TEEs and cardioversion, most recent cardioversion was September 2016. Currently maintained on sotalol. D status post loop monitor implantation on October 16, 2020 On his loop interrogation he had multiple episodes of atrial fibrillation. He was referred for evaluation with Dr. Schaefer Was seen by Dr. Schaefer in July 2022. Patient decided against ablation. He was started on Toprol XL in addition to his Sotalol. Review of his loop monitor showed multiple episodes of atrial fibrillation Intolerant previously to amiodarone due to elevated liver enzymes. Admitted yesterday to escalate Sotalol dose to 120mg BID CHF, nonischemic cardiomyopathy, likely secondary to tachycardia during atrial fibrillation, Improved, asymptomatic. Continue to monitor 2D echocardiogram done on October 2022 showing EF 55-60%, mild MR, moderate AR, moderate TR, PA 40mmHg. Coronary artery disease, Cardiac catheterization was done in January 2015 showing 40-50 percent stenosis in the mid LAD, mild disease in the right coronary artery, Stress test was done in October 16, 2020 showing diaphragmatic attenuation with mild decreased uptake involving the mid to apical inferior wall and inferolateral wall with subtle reversibility, EF 75%. Patient is asymptomatic. I recommend conservative management and monitoring him, will consider cardiac catheterization if he becomes symptomatic [id number] score of 3, considered high risk, with yearly risk of stroke without OAC 3.2%. Maintained on Eliquis. Continue to monitor History of Elevated LFT's- unknown etiology, possibly secondary to amiodarone use in the past. Continue to monitor at this point. 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 currently stable. Continue to monitor. History of CVA at age 15 History of seizure disorder, maintained on Dilantin. Questionable history of valvular repair at age 15. Nonobstructive carotid artery stenosis-most recent carotid duplex done In April 2022 Supervisory-Addendum Brief Supervisory Addendum Participated in pt care: history, MDM, physical Personally performed: exam, history, MDM Care discussed with: RIVERA Results interpretation: Verified all documentation Notes: Short stay summary: Patient was seen and evaluated with Deidra, has been maintaining sinus rhythm EKG showed borderline QTc, tolerating sotalol 120 mg twice daily, has been hypotensive I will discontinue diltiazem and metoprolol, continue on enalapril 2.5 Planning for discharge and follow-up as an outpatient Final diagnosis: Paroxysmal atrial fibrillation Congestive heart failure, chronic compensated left ventricular systolic dysfunction, Coronary artery disease History of CVA DEIDRA SEBASTIAN PA-C May 14, 2023 08:47 MELISSA ADAMS MD May 14, 2023 11:02
[2023-05-14] MEDS ORDERED: MULT-593 PO (10:18)
[2023-05-14] MEDS ORDERED: MTP25TSR PO (10:18)
[2023-05-14] MEDS ORDERED: STL80T PO (10:59)
--- NOTE | 2023-05-14 10:59 | Discharge Inst-Simple/Standard ---
Discharge Inst-Standard Reconcile Patient Problems Problems Reviewed?: Yes Discharge Medications New, Converted or Re-Newed RX: Transmitted to Pharmacy Patient Instructions/Follow Up Plan of Care/Instructions/FU: Appointment with Dr. Bustamante's office in 1 to 2 weeks Activity as Tolerated: Yes Discharge Diet: Cardiac Diet MELISSA BUSTAMANTE MD May 14, 2023 10:59
== END 2023-05-14 10:57 | disposition home or self-care (01) ==
LOC: ICU 13:01 → UNDOADMOB 13:01 → ICU 13:07 → UNDODISOB 05-14 10:57
PROVIDERS: ADMIT Internal Medicine Cardiovascular Disease; ATTEND Internal Medicine Cardiovascular Disease
DX: I48.0 Paroxysmal atrial fibrillation (principal); I25.10 Atherosclerotic heart disease of native coronary artery without angina pectoris; I65.29 Occlusion and stenosis of unspecified carotid artery; I11.0 Hypertensive heart disease with heart failure; I50.9 Heart failure, unspecified; I42.8 Other cardiomyopathies; I08.3 Combined rheumatic disorders of mitral, aortic and tricuspid valves; E78.5 Hyperlipidemia, unspecified; G40.909 Epilepsy, unspecified, not intractable, without status epilepticus; Z79.01 Long term (current) use of anticoagulants
CPT/HCPCS: 80048; 80053; 83735; 87081; 93005 ×2; 96361 ×2; 96365; G0378; G0379; 36415